=== PATIENT | female | born 1935 | race Caucasian/White ===

== ENCOUNTER 2023-12-14 16:28 | Inpatient (IN) | payer MEDICARE, BC ==
--- NOTE | 2023-12-14 17:36 | ED ---
General Adult HPI - General Chief complaint: Shortness of Breath Stated complaint: New on-set AFIB Time Seen by Provider: 12/14/23 16:47 Source: patient, EMS Mode of arrival: EMS - History of Present Illness Initial comments: Dictation was produced using [employer] dictation software. please excuse any grammatical, word or spelling errors. Chief Complaint: 88-year-old female presents emergency department for A-fib History of Present Illness: Patient is 88-year-old female according to triage she was [facility] the [facility] for new onset A- fib. Patient has a history of A-fib she is on A-fib medications including anticoagulation medications and rate controlling medications. She was just discharged in the hospital sent to the [facility] due to debility. She was having physical therapy today when all of a sudden she was noticed to be in A-f ib. Patient states she is feeling weak today. Denies any other acute complaints. Patient is being currently worked up for subacute abdominal pain. Patient is DNR The ROS documented in this emergency department record has been reviewed and confirmed by me. Those systems with pertinent positive or negative responses have been documented in the HPI. All other systems are other negative and/or noncontributory. - Related Data Home Medications Medication Instructions Recorded Confirmed Acetaminophen Tab [Tylenol] 1,000 mg PO BID 12/01/23 12/01/23 Atorvastatin [Lipitor] 20 mg PO HS 12/01/23 12/01/23 Bumetanide [BUMEX] 2 mg PO DAILY 12/01/23 12/01/23 Citalopram Hydrobromide [CeleXA] 10 mg PO DAILY 12/01/23 12/01/23 Clobetasol Propionate [Temovate 1 applic TOPICAL DIRECTED 12/01/23 12/01/23 0.05% Oint] Clotrimazole/Betameth Cream 1 applic TOPICAL BID PRN 12/01/23 12/01/23 [Lotrisone] Cranberry Fruit Extract [Cranberry] 500 mg PO DAILY 12/01/23 12/01/23 Melatonin 1 mg PO HS 12/01/23 12/01/23 Metoprolol Tartrate [Lopressor] 100 mg PO BID 12/01/23 12/01/23 Potassium Chloride ER [K-Dur 10] 10 meq PO DAILY 12/01/23 12/01/23 Rivaroxaban [Xarelto] 15 mg PO DAILY@1700 12/01/23 12/01/23 dilTIAZem HCL 60 mg PO TID 12/01/23 12/01/23 estradioL 10 mcg VAGINAL DIRECTED 12/01/23 12/01/23 Previous Rx's Medication Instructions Recorded ALPRAZolam [Xanax] 0.5 mg PO DAILY #3 tab 12/08/23 Estradiol Cream [Estrace Cream 1 gm VAGINAL HS #0 12/08/23 0.01%] Allergies Allergy/AdvReac Type Severity Reaction Status Date / Time No Known Allergies Allergy Verified 12/14/23 16:41 Review of Systems ROS Statement: Those systems with pertinent positive or pertinent negative responses have been documented in the HPI. ROS Other: All systems not noted in ROS Statement are negative. Past Medical History Past Medical History: Heart Failure, Hypertension, Respiratory Disorder, Thyroid Disorder Additional Past Medical History / Comment(s): CHF, brain tumor, parathyroid History of Any Multi-Drug Resistant Organisms: None Reported Additional Past Surgical History / Comment(s): Parathiroid removed, brain tumor removed, Past Psychological History: No Psychological Hx Reported Smoking Status: Never smoker Past Alcohol Use History: None Reported Past Drug Use History: None Reported General Exam - General Exam Comments Initial Comments: PHYSICAL EXAM: General Impression: Alert and oriented x3, not in acute distress HEENT: Normocephalic atraumatic, extra-ocular movements intact, pupils equal and reactive to light bilaterally, mucous membranes moist. Cardiovascular: Heart regular rate and rhythm Chest: Able to complete full sentences, no retractions, no tachypnea Abdomen: abdomen soft, non-tender, non-distended, no organomegaly Musculoskeletal: Pulses present and equal in all extremities, no peripheral edema Motor: no focal deficits noted Neurological: CN II-XII grossly intact, no focal motor or sensory deficits noted Skin: Intact with no visualized rashes Psych: Normal affect and mood Course Vital Signs 12/14/23 16:36 Temperature 98.6 F Pulse Rate 86 Blood Pressure 132/77 O2 Sat by Pulse 94 L Oximetry EKG Findings - EKG Comments: EKG Findings:: My EKG interpretation: Ventricular rate 96, A-fib, QRS 110, QTc 418. No LA prolongation, no QTC prolongation, no ST or T-wave changes noted. EKG compared to December 01, 2023 showing no changes. Overall, this EKG is unremarkable Medical Decision Making - Medical Decision Making Was pt. sent in by a medical professional or institution (, PA, LEGAL PROJECT MANAGER, urgent care, hospital, or [facility]...) When possible be specific @ -senior living Did you speak to anyone other than the patient for history (EMS, parent, family, police, friend...)? What history was obtained from this source @ -Daughters at the bedside Did you review nursing and triage notes (agree or disagree)? Why? @ -I reviewed and agree with nursing and triage notes Were old charts reviewed (outside hosp., previous admission, EMS record, old EKG, old radiological studies, urgent care reports/EKG's, [facility] records)? Report findings @ -Previous discharge summaries reviewed stating that patient was recently admitted for congestive heart failure Differential Diagnosis (chest pain, altered mental status, abdominal pain women, abdominal pain men, vaginal bleeding, musculoskeletal, weakness, fever, dyspnea, syncope, headache, dizziness, GI bleed, back pain, seizure, CVA, palpatations, mental health)? @ -Differential Weakness: Hypoglycemia, shock, sepsis, hyponatremia, anemia, infection, DC, ETOH, adverse medicine reaction, overdose, stroke, this is not meant to be an all-inclusive list. EKG interpreted by me (3pts min.). @ -See above X-rays interpreted by me (1pt min.). @ -Chest x-ray shows CHF CT interpreted by me (1pt min.). @ -None done U/S interpreted by me (1pt. min.). @ -None done What testing was considered but not performed or refused? (CT, X-rays, U/S, labs)? Why? @ -None What meds were considered but not given or refused? Why? @ -None Did you discuss the management of the patient with other professionals (professionals i.e. , [employer], LEGAL PROJECT MANAGER, lab, RT, psych nurse, social psychologist, project safety manager, teacher, boating safety officer, caseworker protective services)? Give summary @ -Case discussed with hospitalist for admission Was smoking cessation discussed for >3mins.? @ -No Was critical care preformed (if so, how long)? @ -No Were there social determinants of health that impacted care today? How? (Homelessness, low income, unemployed, alcoholism, drug addiction, transportation, low edu. Level, literacy, decrease access to med. care, custodial, rehab)? @ -No Was there de-escalation of care discussed even if they declined (Discuss DNR or withdrawal of care, Hospice)? DNR status @ -No What co-morbidities impacted this encounter? (DM, HTN, Smoking, COPD, CAD, Ca ncer, CVA, ARF, Chemo, Hep., AIDS, mental health diagnosis, sleep apnea, morbid obesity)? @ -None Was patient admitted / discharged? Hospital course, mention meds given and route, prescriptions, significant lab abnormalities, going to OR and other pertinent info. @ -88-year-old female presents emergency department for weakness palpitations hypoxia. Brought in from [facility] by EMS. Vital signs upon arrival shows 94% on 3 L nasal cannula. Rest of vital signs within acceptable limits. Pat marcel has history of A-fib on all the appropriate medications. Laboratory evaluation obtained. CBC metabolic panel is unremarkable. Patient significantly weak acutely. Disposition options were discussed with patient. Patient does not feel fit enough to go back to the [facility]. She will be a dmitted to observation Undiagnosed new problem with uncertain prognosis? @ -No Drug Therapy requiring intensive monitoring for toxicity (Heparin, Nitro, Insulin, Cardizem)? @ -No Were any procedures done? @ -No Diagnosis/symptom? Acute, or Chronic, or Acute on Chronic? Uncomplicated (without systemic symptoms) or Complicated (systemic symptoms)? @ -Generalized weakness Side effects of treatment? @ -No Exacerbation, Progression, or Severe Exacerbation? @ -No Poses a threat to life or bodily function? How? (Chest pain, USA, DC, pneumonia, PE, COPD, DKA, ARF, appy, cholecystitis, CVA, Diverticulitis, Homicidal, Suicidal, threat to staff... and all critical care pts) @ -No - Lab Data Result diagrams: 12/14/23 18:32 12/14/23 18:32 Lab Results 12/14/23 12/14/23 Range/Units 18:32 18:32 WBC 8.7 (3.8-10.6) k/uL RBC 3.71 L (3.80-5.40) m/uL Hgb 11.8 (11.4-16.0) gm/dL Hct 37.3 (34.0-46.0) % MCV 100.4 H (80.0-100.0) fL MCH 31.9 (25.0-35.0) pg MCHC 31.7 (31.0-37.0) g/dL RDW 15.3 (11.5-15.5) % Plt Count 213 (150-450) k/uL MPV 8.4 Neutrophils % 81 % Lymphocytes % 8 % Monocytes % 7 % Eosinophils % 1 % Basophils % 1 % Neutrophils # 7.0 (1.3-7.7) k/uL Lymphocytes # 0.7 L (1.0-4.8) k/uL Monocytes # 0.6 (0-1.0) k/uL Eosinophils # 0.1 (0-0.7) k/uL Basophils # 0.1 (0-0.2) k/uL Hypochromasia Slight Macrocytosis Slight Sodium 141 (137-145) mmol/L Potassium 4.5 (3.5-5.1) mmol/L Chloride 108 H (98-107) mmol/L Carbon Dioxide 24 (22-30) mmol/L Anion Gap 9 mmol/L BUN 38 H (7-17) mg/dL Creatinine 1.18 H (0.52-1.04) mg/dL Est GFR (CKD-EPI)AfAm 48 (>60 ml/min/1.73 sqM) Est GFR (CKD-EPI)NonAf 42 (>60 ml/min/1.73 sqM) Glucose 103 H (74-99) mg/dL Calcium 8.5 (8.4-10.2) mg/dL Magnesium 2.4 H (1.6-2.3) mg/dL Total Bilirubin 0.6 (0.2-1.3) mg/dL AST 27 (14-36) U/L ALT 22 (4-34) U/L Alkaline Phosphatase 119 (38-126) U/L Total Protein 6.2 L (6.3-8.2) g/dL Albumin 3.6 (3.5-5.0) g/dL Disposition Clinical Impression: Weakness Disposition: ADMITTED IP TO THIS [facility] Condition: Fair Referrals: Jamil Juárez DO [Primary Care Provider] - 1-2 days Decision Time: 20:01
[2023-12-14 18:41] LABS: Basophils # (A) 0.1 k/uL (0-0.2); Basophils % (A) 1 %; Eosinophils # (A) 0.1 k/uL (0-0.7); Eosinophils % (A) 1 %; HCT 37.3 % (34.0-46.0); HGB 11.8 gm/dL (11.4-16.0); Hypochromasia Slight; Lymphocytes # (A) 0.7 k/uL (1.0-4.8); Lymphocytes % (A) 8 %; MCH 31.9 pg (25.0-35.0); MCHC 31.7 g/dL (31.0-37.0); MCV 100.4 fL (80.0-100.0); Macrocytosis Slight; Mean Platelet Volume 8.4; Monocytes # (A) 0.6 k/uL (0-1.0); Monocytes % (A) 7 %; Neutrophils % (A) 81 %; Platelet Count 213 k/uL (150-450); RBC 3.71 m/uL (3.80-5.40); RDW 15.3 % (11.5-15.5); WBC 8.7 k/uL (3.8-10.6)
[2023-12-14 19:06] LABS: ALT 22 U/L (4-34); AST 27 U/L (14-36); African American GFR (CKD) 48 (>60 ml/min/1.73 sqM); Albumin 3.6 g/dL (3.5-5.0); Alkaline Phosphatase 119 U/L (38-126); Anion Gap 9 mmol/L; Blood Urea Nitrogen 38 mg/dL (7-17); Calcium 8.5 mg/dL (8.4-10.2); Carbon Dioxide 24 mmol/L (22-30); Chloride 108 mmol/L (98-107); Glucose 103 mg/dL (74-99); Magnesium 2.4 mg/dL (1.6-2.3); Non-African American GFR(CKD) 42 (>60 ml/min/1.73 sqM); Potassium 4.5 mmol/L (3.5-5.1); Sodium 141 mmol/L (137-145); Total Bilirubin 0.6 mg/dL (0.2-1.3); Total Protein 6.2 g/dL (6.3-8.2)
--- NOTE | 2023-12-14 19:21 | XR ---
EXAMINATION TYPE: XR chest 1V portable DATE OF EXAM: 12/14/2023 6:43 PM CLINICAL INDICATION:Female, 88 years old with history of palpitations; [facility] COMPARISON: Chest radiographs from 12/01/2023 TECHNIQUE: XR chest 1V portable Frontal view of the chest. FINDINGS: Lungs/Pleura: There is no evidence of pleural effusion, focal consolidation, or pneumothorax. Pulmonary vascularity: Pulmonary vascular congestion. Heart/mediastinum: Cardiomediastinal silhouette is enlarged and stable. Musculoskeletal: No acute osseous pathology. IMPRESSION: Cardiomegaly and mild pulmonary vascular congestion. Correlate with BNP for congestive heart failure.
[2023-12-14] MEDS ORDERED: LACTULOSE 20 GM/30 ML CUP PO PRN (21:31)
[2023-12-14] MEDS ORDERED: ONDANSETRON 4 MG/2 ML VIAL IVP PRN (21:31)
[2023-12-14] MEDS ORDERED: CALCIUM CARBONATE 500 MG CHEWABLE PO PRN (21:31)
[2023-12-14] MEDS ORDERED: NALOXONE 0.4 MG/ML 1 ML VIAL IV PRN (21:31)
[2023-12-14] MEDS: FUROSEMIDE 40 MG TAB PO SCH (22:03)
[2023-12-14] MEDS: FUROSEMIDE 10 MG/ML 4 ML VIAL IV STA (22:23)
[2023-12-14] MEDS: ACETAMINOPHEN TAB 500 MG TAB PO SCH (22:25)
[2023-12-14] MEDS: RIVAROXABAN 15 MG TAB PO SCH (22:28)
[2023-12-14] MEDS: METOPROLOL TARTRATE 50 MG TAB PO SCH (22:28)
[2023-12-14] MEDS: ATORVASTATIN 20 MG TAB PO SCH (22:28)
[2023-12-14] MEDS: MELATONIN 1 MG TAB PO SCH (22:29)
[2023-12-14] MEDS: AMMONIUM LACTATE 12% LOTION 225 GM BTL TOPICAL SCH (23:39)
[2023-12-15] MEDS: DILTIAZEM ORAL 60 MG TAB PO SCH (00:23)
[2023-12-15] MEDS: BUMETANIDE 0.25 MG/ML 10 ML VIAL IV SCH ×2 (01:18→20:10)
[2023-12-15 01:55] LABS: Amorphous Sediment,Urine Rare /hpf; Appearance,Urine Clear (Clear); Bacteria,Urine Many /hpf; Bilirubin,Urine Negative (Negative); Blood,Urine Negative (Negative); Color,Urine Colorless; Glucose,Urine (UA) Negative (Negative); Ketones,Urine Negative (Negative); Leukocyte Esterase,Urine Trace (Negative); Mucus,Urine Rare /hpf; Nitrite,Urine Positive (Negative); Protein,Urine Negative (Negative); RBC,Urine 2 /hpf (0-5); Specific Gravity,Urine 1.011 (1.001-1.035); Squamous Epithelial Cell,Urine 4 /hpf (0-4); Urobilinogen,Urine <2.0 mg/dL (<2.0); WBC,Urine 15 /hpf (0-5)
[2023-12-15] MEDS: ALPRAZolam 0.25 MG TAB PO PRN (06:47)
[2023-12-15] MEDS: ALPRAZolam 0.5 MG TAB PO SCH (08:08)
[2023-12-15] MEDS ORDERED: ACETAMINOPHEN TAB 500 MG TAB PO SCH (09:00)
[2023-12-15] MEDS: POTASSIUM CHLORIDE ER 10 MEQ TAB.ER.PRT PO SCH (09:18)
[2023-12-15] MEDS: CITALOPRAM HYDROBROMIDE 10 MG TAB PO SCH (09:19)
--- NOTE | 2023-12-15 10:37 | P.HPIM ---
History of Present Illness H&P Date: 12/14/23 Chief Complaint: A-fib uncontrolled This is a 88-year-old patient, follows with Dr. Sera Johnson. 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 Was treated for CHF exacerbation EF 50 to 55%, bout of epistaxis, has atrial fibrillation, secondary pulm hypertension. She was discharged to [facility] on [facility] for rehab Patient was on the bicycle today with physical therapist. Heart started racing. Patient became short of breath. Very slight chest pressure. No fever no chills. No cough. Feeling rather tired. Patient daughter at the bedside. Review of systems: GEN.: Tired EYES: None HEENT: None NECK: None RESPIRATORY: As above CARDIOVASCULAR: As above GASTROINTESTINAL: None GENITOURINARY: None MUSCULOSKELETAL: Joint pains LYMPHATICS: None HEMATOLOGICAL: None PSYCHIATRY: None NEUROLOGICAL: Near blind left eye Social history: Lives alone-currently at [facility] the [facility]. Home oxygen 2 L. Does not smoke. No alcohol. Physical examination: VITAL SIGNS: Rectal temperature 101.7, 105, 20, 134 x 98, 97% on 4 L GENERAL: BMI 30.7, laying in bed short of breath. EYES: Pupils equal. Conjunctiva teja l. HEENT: External appearance of nose and ears normal, oral cavity grossly normal. NECK: JVD unable to assess; masses not palpable. HEART: First and second heart sounds are normal; edema present. LUNGS: Respiratory rate increased; some basal crackles n. ABDOMEN: Soft, nontender, liver spleen not palpable, no masses palpable. PSYCH: Alert and oriented x3; mood and affect etja l. MUSCULOSKELETAL:No Clubbing/cyanosis;muscles-grossly intact NEUROLOGICAL: Cranial nerves grossly intact; no facial asymmetry, power and sensation grossly intact. Blind in the left eye LYMPHATICS: No lymph nodes palpable in the axilla and neck INVESTIGATIONS, reviewed in the clinical context: EKG tracing personally reviewed by me-atrial fibrillation rate around 100 Chest x-ray film personally reviewed by me-cardiomegaly. Venous prominence. Possible infiltrate right base 2D echocardiogram: EF 50-55%. Severe pulmonary hypertension. Assessment and plan: -Acute on chronic congestive heart failure exacerbation, from diastolic EF 50 to 55% IV Bumex 0.25 twice daily. Strict I's and O's. -Right lower lobe pneumonia suspect gram-negative organism causing sepsis IV ceftriaxone -Sepsis secondary pneumonia Hold IV fluids because of CHF exacerbation. 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 Lopressor 100 mg twice daily. Xarelto -Chronic urinary bladder outflow obstruction Failed trial of DC Maldonado. Maldonado reinserted last week. Follow-up outpatient with urology. -Hyperlipidemia Lipitor -Chronic kidney disease stage III likely nephrosclerosis -Essential hypertension Lopressor. Cardizem. -Chronic hypoxic respiratory failure from CHF 2 L of oxygen at home -DNR Care was discussed with patient daughter at the bedside. Consult cardiology Past Medical History Past Medical History: Heart Failure, Hypertension, Respiratory Disorder, Thyroid Disorder Additional Past Medical History / Comment(s): CHF, brain tumor, parathyroid History of Any Multi-Drug Resistant Organisms: None Reported Additional Past Surgical History / Comment(s): Parathiroid removed, brain tumor removed, Past Psychological History: No Psychological Hx Reported Smoking Status: Never smoker Past Alcohol Use History: None Reported Past Drug Use History: None Reported Medications and Allergies Home Medications Medication Instructions Recorded Confirmed Type Acetaminophen Tab [Tylenol] 1,000 mg PO BID 12/01/23 12/14/23 History Atorvastatin [Lipitor] 20 mg PO HS 12/01/23 12/14/23 History Bumetanide [BUMEX] 2 mg PO DAILY 12/01/23 12/14/23 History Citalopram Hydrobromide [CeleXA] 10 mg PO DAILY 12/01/23 12/14/23 History Melatonin 1 mg PO HS 12/01/23 12/14/23 History Metoprolol Tartrate [Lopressor] 100 mg PO BID 12/01/23 12/14/23 History Potassium Chloride ER [K-Dur 10] 10 meq PO DAILY 12/01/23 12/14/23 History Rivaroxaban [Xarelto] 15 mg PO HS 12/01/23 12/14/23 History dilTIAZem HCL 60 mg PO Q8H 12/01/23 12/14/23 History estradioL 10 mcg VAGINAL SUTH 12/01/23 12/14/23 History ALPRAZolam [Xanax] 0.5 mg PO DAILY #3 tab 12/08/23 12/14/23 Rx Ammonium Lactate Lotion 1 applic TOPICAL HS 12/14/23 12/14/23 History [Lac-Hydrin 12% Lotion] Cranberry 450mg 450 mg PO HS 12/14/23 12/14/23 History Estradiol Cream [Estrace Cream 1 gm VAGINAL SUTH@2100 12/14/23 12/14/23 History 0.01%] Allergies Allergy/AdvReac Type Severity Reaction Status Date / Time No Known Allergies Allergy Verified 12/14/23 20:56 Physical Exam Vitals: Vital Signs Temp Pulse BP Pulse Ox 12/14/23 16:36 98.6 F 86 132/77 94 L Intake and Output 12/14/23 12/14/23 12/14/23 06:59 14:59 22:59 Other: Weight 82.554 kg Results CBC & Chem 7: 12/14/23 18:32 12/14/23 18:32 Labs: Abnormal Lab Results - Last 24 Hours (Table) 12/14/23 12/14/23 Range/Units 18:32 18:32 RBC 3.71 L (3.80-5.40) m/uL MCV 100.4 H (80.0-100.0) fL Lymphocytes # 0.7 L (1.0-4.8) k/uL Chloride 108 H (98-107) mmol/L BUN 38 H (7-17) mg/dL Creatinine 1.18 H (0.52-1.04) mg/dL Glucose 103 H (74-99) mg/dL Magnesium 2.4 H (1.6-2.3) mg/dL Total Protein 6.2 L (6.3-8.2) g/dL
--- NOTE | 2023-12-15 13:40 | P.CRDCN ---
History of Present Illness History of present illness: HISTORY OF PRESENT ILLNESS: This is a 88-year-old male with a past medical history significant for hypertension, hypothyroidism, congestive heart failure, atrial fibrillation, and pulmonary hypertension. Patient follows in the office with []. We have been asked to see the patient in consultation for congestive heart failure. Patient examined at the bedside. Patients caregiver is at the bedside and states that she was brought to the hospital secondary to atrial fibrillation. It is unknown if the patient had RVR or not. At the time of examination remains in atrial fibrillation with controlled ventricular rate. She does report increasing shortness of breath and difficulty laying flat in bed. Patient was started on IV Bumex. DIAGNOSTICS: - EKG reveals atrial fibrillation with controlled ventricular rate. - Chest xray cardiomegaly and mild pulmonary vascular congestion. - Laboratory data: WBC 8.7. Hemoglobin 11.8. Platelet count 213. Sodium 141. Potassium 4.1. BUN 38. Creatinine 1.18. Magnesium 2.4. - Current home cardiac medications include Bumex 2 mg daily, Cardizem 60 mg 3 times a day, Lipitor 20 mg at night, metoprolol tartrate 100 mg twice a day, and Xarelto 15 mg at night. - Most recent echocardiogram obtained on 12/01/2023 revealed ejection fraction 50 to 55%, biatrial enlargement, mild AR, pulmonary regurgitation, mild to moderate TR REVIEW OF SYSTEMS: At the time of my exam: CONSTITUTIONAL: Denies fever or chills. HEENT: Denies blurred vision, vision changes, or eye pain. Denies hemoptysis CARDIOVASCULAR: Denies chest pain. Denies orthopnea. Denies PND. Denies palpitations RESPIRATORY: Reports shortness of breath. GASTROINTESTINAL: Denies abdominal pain. Denies nausea or vomiting. HEMATOLOGIC: Denies bleeding disorders. GENITOURINARY: Denies any blood in urine. SKIN: Denies pruitis. Denies rash. PHYSICAL EXAM: VITAL SIGNS: Reviewed. GENERAL: Well-developed in no acute distress. HEENT: Head is normocephalic. Pupils are equal, round. Sclerae anicteric. Mucous membranes of the mouth are moist. Neck supple. No JVD or thyromegaly LUNGS: Respirations even and unlabored. Lungs diminished to auscultation bilaterally. HEART: Irregular rate and rhythm. S1 and S2 heard. ABDOMEN: Soft. Nondistended. Nontender. EXTREMITIES: Normal range of motion. No clubbing or cyanosis. Peripheral pulses intact. 1+ lower extremity edema NEUROLOGIC: Awake and alert. Oriented x 3. 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 Signing provider agrees with the documented findings, assessment, and plan of care documented by DIRECTOR PRESALES as a scribe. Past Medical History Past Medical History: Heart Failure, Hypertension, Respiratory Disorder, Thyroid Disorder Additional Past Medical History / Comment(s): CHF, brain tumor, parathyroid History of Any Multi-Drug Resistant Organisms: None Reported Additional Past Surgical History / Comment(s): Parathiroid removed, brain tumor removed, Past Psychological History: No Psychological Hx Reported Smoking Status: Never smoker Past Alcohol Use History: None Reported Past Drug Use History: None Reported Medications and Allergies Home Medications Medication Instructions Recorded Confirmed Type Acetaminophen Tab [Tylenol] 1,000 mg PO BID 12/01/23 12/14/23 History Atorvastatin [Lipitor] 20 mg PO HS 12/01/23 12/14/23 History Bumetanide [BUMEX] 2 mg PO DAILY 12/01/23 12/14/23 History Citalopram Hydrobromide [CeleXA] 10 mg PO DAILY 12/01/23 12/14/23 History Melatonin 1 mg PO HS 12/01/23 12/14/23 History Metoprolol Tartrate [Lopressor] 100 mg PO BID 12/01/23 12/14/23 History Potassium Chloride ER [K-Dur 10] 10 meq PO DAILY 12/01/23 12/14/23 History Rivaroxaban [Xarelto] 15 mg PO HS 12/01/23 12/14/23 History dilTIAZem HCL 60 mg PO Q8H 12/01/23 12/14/23 History estradioL 10 mcg VAGINAL SUTH 12/01/23 12/14/23 History ALPRAZolam [Xanax] 0.5 mg PO DAILY #3 tab 12/08/23 12/14/23 Rx Ammonium Lactate Lotion 1 applic TOPICAL HS 12/14/23 12/14/23 History [Lac-Hydrin 12% Lotion] Cranberry 450mg 450 mg PO HS 12/14/23 12/14/23 History Estradiol Cream [Estrace Cream 1 gm VAGINAL SUTH@2100 12/14/23 12/14/23 History 0.01%] Allergies Allergy/AdvReac Type Severity Reaction Status Date / Time No Known Allergies Allergy Verified 12/14/23 20:56 Physical Exam Vitals: Vital Signs Temp Pulse Resp BP Pulse Ox 12/15/23 10:31 99.8 F H 12/15/23 09:09 100.0 F H 80 24 120/64 96 12/15/23 06:28 99.0 F 82 18 139/88 98 12/15/23 03:03 98.0 F 12/15/23 02:39 87 17 118/97 97 12/15/23 00:36 89 24 106/89 97 12/14/23 22:09 101.7 F H 105 H 20 124/98 97 12/14/23 21:36 99.3 F 105 H 18 114/89 96 12/14/23 21:21 114/89 12/14/23 21:06 101.4 F H 101 H 18 132/104 94 L 12/14/23 16:36 98.6 F 86 132/77 94 L Intake and Output 12/14/23 12/15/23 12/15/23 22:59 06:59 14:59 Output Total 300 Balance -300 Output: Urine 300 Female - External 300 Other: Weight 82.554 kg Results 12/14/23 18:32 12/14/23 18:32 Cardiac Enzymes 12/14/23 Range/Units 18:32 AST 27 (14-36) U/L CBC 12/14/23 Range/Units 18:32 WBC 8.7 (3.8-10.6) k/uL RBC 3.71 L (3.80-5.40) m/uL Hgb 11.8 (11.4-16.0) gm/dL Hct 37.3 (34.0-46.0) % Plt Count 213 (150-450) k/uL Comprehensive Metabolic Panel 12/14/23 Range/Units 18:32 Sodium 141 (137-145) mmol/L Potassium 4.5 (3.5-5.1) mmol/L Chloride 108 H (98-107) mmol/L Carbon Dioxide 24 (22-30) mmol/L BUN 38 H (7-17) mg/dL Creatinine 1.18 H (0.52-1.04) mg/dL Glucose 103 H (74-99) mg/dL Calcium 8.5 (8.4-10.2) mg/dL AST 27 (14-36) U/L ALT 22 (4-34) U/L Alkaline Phosphatase 119 (38-126) U/L Total Protein 6.2 L (6.3-8.2) g/dL Albumin 3.6 (3.5-5.0) g/dL Current Medications Generic Name Dose Route Start Last Admin Trade Name Freq PRN Reason Stop Dose Admin Acetaminophen 1,000 mg 12/14/23 22:00 12/15/23 09:16 Acetaminophen Tab 500 Mg Tab PO 1,000 mg BID SHY Administration Alprazolam 0.5 mg 12/15/23 09:00 12/15/23 08:08 Alprazolam 0.5 Mg Tab PO Not Given DAILY SHY Alprazolam 0.25 mg 12/14/23 21:31 12/15/23 06:47 Alprazolam 0.25 Mg Tab PO 0.25 mg Q6HR PRN Administration Anxiety Atorvastatin Calcium 20 mg 12/14/23 22:00 12/14/23 22:28 Atorvastatin 20 Mg Tab PO 20 mg HS SHY Administration Bumetanide 0.25 mg 12/14/23 22:00 12/15/23 09:21 Bumetanide 0.25 Mg/Ml 10 Ml Vial IV 0.25 mg Q12HR SHY Administration Calcium Carbonate/Glycine 1,000 mg 12/14/23 21:31 Calcium Carbonate 500 Mg Chewable PO Q4HR PRN Dyspepsia Citalopram Hydrobromide 10 mg 12/15/23 09:00 12/15/23 09:19 Citalopram Hydrobromide 10 Mg Tab PO 10 mg DAILY SHY Administration Diltiazem HCl 60 mg 12/14/23 22:00 12/15/23 06:33 Diltiazem Oral 60 Mg Tab PO 60 mg Q8H SHY Administration Ceftriaxone Sodium 1 gm/ 50 mls @ 100 mls/hr 12/15/23 22:00 Sodium Chloride IVPB Q24H [facility] Protocol Lactic Acid 1 applic 12/14/23 22:00 12/14/23 23:39 Ammonium Lactate 12% Lotion 225 Gm Btl TOPICAL Not Given HS [facility] Protocol Lactulose 20 gm 12/14/23 21:31 Lactulose 20 Gm/30 Ml Cup PO DAILY PRN Constipation Melatonin 1 mg 12/14/23 22:00 12/14/23 22:29 Melatonin 1 Mg Tab PO 1 mg HS [facility] Administration Metoprolol Tartrate 100 mg 12/14/23 22:00 12/15/23 09:14 Metoprolol Tartrate 50 Mg Tab PO 100 mg BID SHY Administration Naloxone HCl 0.2 mg 12/14/23 21:31 Naloxone 0.4 Mg/Ml 1 Ml Vial IV Q2M PRN Opioid Reversal Ondansetron HCl 4 mg 12/14/23 21:31 Ondansetron 4 Mg/2 Ml Vial IVP Q8HR PRN Nausea And Vomiting Potassium Chloride 10 meq 12/15/23 09:00 12/15/23 09:18 Potassium Chloride Er 10 Meq Tab.Er.Prt PO 10 meq DAILY SHY Administration Rivaroxaban 15 mg 12/14/23 22:00 12/14/23 22:28 Rivaroxaban 15 Mg Tab PO 15 mg HS SHY Administration Protocol Intake and Output 12/14/23 12/15/23 12/15/23 22:59 06:59 14:59 Output Total 300 Balance -300 Output: Urine 300 Female - External 300 Other: Weight 82.554 kg 12/14/23 18:32 12/14/23 18:32
--- NOTE | 2023-12-15 19:13 | P.PN ---
Progress Note - Text Progress Note Date: 12/15/23 Chief Complaint: A-fib uncontrolled This is a 88-year-old patient, follows with Dr. Sera Johnson. 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 Was treated for CHF exacerbation EF 50 to 55%, bout of epistaxis, has atrial fibrillation, secondary pulm hypertension. She was discharged to [facility] on the [place] for rehab Patient was on the bicycle today with physical therapist. Heart started racing. Patient became short of breath. Very slight chest pressure. No fever no chills. No cough. Feeling rather tired. Patient daughter at the bedside. December 14: Patient started on IV ceftriaxone last night. [place] to be combination of pneumonia and UTI. Bumex was increased to 1 mg every 12 by cardiology. Breathing better. Spoke to the patient daughter at the bedside. Active Medications Acetaminophen (Acetaminophen Tab 500 Mg Tab) 1,000 mg PO BID [facility] Last Admin: 12/15/23 09:16 Dose: 1,000 mg Alprazolam (Alprazolam 0.5 Mg Tab) 0.5 mg PO DAILY [facility] Last Admin: 12/15/23 08:08 Dose: Not Given Alprazolam (Alprazolam 0.25 Mg Tab) 0.25 mg PO Q6HR PRN PRN Reason: Anxiety Last Admin: 12/15/23 06:47 Dose: 0.25 mg Atorvastatin Calcium (Atorvastatin 20 Mg Tab) 20 mg PO HS [facility] Last Admin: 12/14/23 22:28 Dose: 20 mg Bumetanide (Bumetanide 0.25 Mg/Ml 10 Ml Vial) 1 mg IV Q12HR [facility] Calcium Carbonate/Glycine (Calcium Carbonate 500 Mg Chewable) 1,000 mg PO Q4HR PRN PRN Reason: Dyspepsia Citalopram Hydrobromide (Citalopram Hydrobromide 10 Mg Tab) 10 mg PO DAILY [facility] Last Admin: 12/15/23 09:19 Dose: 10 mg Diltiazem HCl (Diltiazem Oral 60 Mg Tab) 60 mg PO Q8H [facility] Last Admin: 12/15/23 13:47 Dose: 60 mg Ceftriaxone Sodium 1 gm/ (Sodium Chloride) 50 mls @ 100 mls/hr IVPB Q24H [facility]; Protocol Lactic Acid (Ammonium Lactate 12% Lotion 225 Gm Btl) 1 applic TOPICAL HS [facility]; Protocol Last Admin: 12/14/23 23:39 Dose: Not Given Lactulose (Lactulose 20 Gm/30 Ml Cup) 20 gm PO DAILY PRN PRN Reason: Constipation Melatonin (Melatonin 1 Mg Tab) 1 mg PO [facility] Last Admin: 12/14/23 22:29 Dose: 1 mg Metoprolol Tartrate (Metoprolol Tartrate 50 Mg Tab) 100 mg PO BID [facility] Last Admin: 12/15/23 09:14 Dose: 100 mg Naloxone HCl (Naloxone 0.4 Mg/Ml 1 Ml Vial) 0.2 mg IV Q2M PRN PRN Reason: Opioid Reversal Ondansetron HCl (Ondansetron 4 Mg/2 Ml Vial) 4 mg IVP Q8HR PRN PRN Reason: Nausea And Vomiting Potassium Chloride (Potassium Chloride Er 10 Meq Tab.Er.Prt) 10 meq PO DAILY [facility] Last Admin: 12/15/23 09:18 Dose: 10 meq Rivaroxaban (Rivaroxaban 15 Mg Tab) 15 mg PO [facility]; Protocol Last Admin: 12/14/23 22:28 Dose: 15 mg Social history: Lives alone-currently at [facility] the [facility]. Home oxygen 2 L. Does not smoke. No alcohol. Physical examination: VITAL SIGNS: 100, 80, 24, 120 x 64, 96% on 4 L GENERAL: Sitting up in bed, a bit short of breath EYES: Pupils equal. Conjunctiva teja l. HEENT: External appearance of nose and ears normal, oral cavity grossly normal. NECK: JVD unable to assess; masses not palpable. HEART: First and second heart sounds are normal; edema present. LUNGS: Respiratory rate increased; some basal crackles n. ABDOMEN: Soft, nontender, liver spleen not palpable, no masses palpable. PSYCH: Alert and oriented x3; mood and affect teja l. MUSCULOSKELETAL:No Clubbing/cyanosis;muscles-grossly intact NEUROLOGICAL: Cranial nerves grossly intact; no facial asymmetry, power and sensation grossly intact. Blind in the left eye INVESTIGATIONS, reviewed in the clinical context: UA positive for nitrite. Leukoesterase. Procalcitonin 0.12. proBNP 5190 EKG tracing personally reviewed by me-atrial fibrillation rate around 100 Chest x-ray film personally reviewed by me-cardiomegaly. Venous prominence. Possible infiltrate right base 2D echocardiogram: EF 50-55%. Severe pulmonary hypertension. Assessment and plan: -Acute on chronic congestive heart failure exacerbation, from diastolic EF 50 to 55%: Slow to respond IV Bumex increased to 1 mg every 12. Strict I's and O's. -Right lower lobe pneumonia suspect gram-negative organism causing sepsis IV ceftriaxone -Acute UTI with cystitis secondary to Maldonado catheter IV ceftriaxone -Sepsis secondary pneumonia, and UTI Hold IV fluids because of CHF exacerbation. Antibiotics -Acute hypoxic respiratory failure secondary pneumonia, and CHF 6 L of oxygen on presentation -Severe secondary pulmonary hypertension, secondary to CHF -Chronically blind in the left eye from prior brain tumor being removed -Persistent atrial fibrillation, Cardizem 60 mg 3 times daily. Lopressor 100 mg twice daily. Xarelto -Chronic urinary bladder outflow obstruction Failed trial of DC Maldonado. Maldonado reinserted last week. Follow-up outpatient with urology. -Hyperlipidemia Lipitor -Chronic kidney disease stage III likely nephrosclerosis -Essential hypertension Lopressor. Cardizem. -Chronic hypoxic respiratory failure from CHF 2 L of oxygen at home -DNR Discussed with patient daughter. Bumex dose increased. Continue with IV ceftriaxone.
[2023-12-16 06:44] LABS: Basophils # (A) 0.1 k/uL (0-0.2); Basophils % (A) 1 %; Eosinophils % (A) 0 %; HCT 35.4 % (34.0-46.0); HGB 11.6 gm/dL (11.4-16.0); Hypochromasia Slight; Lymphocytes # (A) 0.5 k/uL (1.0-4.8); Lymphocytes % (A) 7 %; MCHC 32.7 g/dL (31.0-37.0); MCV 100.9 fL (80.0-100.0); Macrocytosis Slight; Mean Platelet Volume 8.5; Monocytes # (A) 0.7 k/uL (0-1.0); Monocytes % (A) 9 %; Neutrophils # (A) 6.2 k/uL (1.3-7.7); Neutrophils % (A) 79 %; Platelet Count 206 k/uL (150-450); RBC 3.51 m/uL (3.80-5.40); RDW 15.1 % (11.5-15.5); WBC 7.8 k/uL (3.8-10.6)
[2023-12-16 06:52] LABS: African American GFR (CKD) 50 (>60 ml/min/1.73 sqM); Anion Gap 9 mmol/L; Blood Urea Nitrogen 29 mg/dL (7-17); Calcium 8.6 mg/dL (8.4-10.2); Carbon Dioxide 25 mmol/L (22-30); Chloride 108 mmol/L (98-107); Glucose 95 mg/dL (74-99); Non-African American GFR(CKD) 43 (>60 ml/min/1.73 sqM); Potassium 4.2 mmol/L (3.5-5.1); Sodium 142 mmol/L (137-145)
--- NOTE | 2023-12-16 09:34 | P.PN ---
Subjective HISTORY OF PRESENT ILLNESS: This is a 88-year-old male with a past medical history significant for hypertension, hypothyroidism, congestive heart failure, atrial fibrillation, and pulmonary hypertension. Patient follows in the office with []. We have been asked to see the patient in consultation for congestive heart failure. Patient examined at the bedside. Patients caregiver is at the bedside and states that she was brought to the hospital secondary to atrial fibrillation. It is unknown if the patient had RVR or not. At the time of examination remains in atrial fibrillation with controlled ventricular rate. She does report increasing shortness of breath and difficulty laying flat in bed. Patient was started on IV Bumex. DIAGNOSTICS: - EKG reveals atrial fibrillation with controlled ventricular rate. - Chest xray cardiomegaly and mild pulmonary vascular congestion. - Laboratory data: WBC 8.7. Hemoglobin 11.8. Platelet count 213. Sodium 141. Potassium 4.1. BUN 38. Creatinine 1.18. Magnesium 2.4. - Current home cardiac medications include Bumex 2 mg daily, Cardizem 60 mg 3 times a day, Lipitor 20 mg at night, metoprolol tartrate 100 mg twice a day, and Xarelto 15 mg at night. - Most recent echocardiogram obtained on 12/01/2023 revealed ejection fraction 50 to 55%, biatrial enlargement, mild AR, pulmonary regurgitation, mild to moderate TR 12/16/2023 Patient examined this morning at the bedside. Patient is laying flat in bed and appears comfortable. She denies any chest pain or pressure. She denies any sh ortness of breath. She remains on IV Bumex. Creatinine today is stable at 1.15. Vital signs are stable. PHYSICAL EXAM: VITAL SIGNS: Reviewed. GENERAL: Well-developed in no acute distress. HEENT: Head is normocephalic. Pupils are equal, round. Sclerae anicteric. Mucous membranes of the mouth are moist. Neck supple. No JVD or thyromegaly LUNGS: Respirations even and unlabored. Lungs diminished to auscultation bilaterally. HEART: Irregular rate and rhythm. S1 and S2 heard. ABDOMEN: Soft. Nondistended. Nontender. EXTREMITIES: Normal range of motion. No clubbing or cyanosis. Peripheral pul ses intact. No lower extremity edema NEUROLOGIC: Awake and alert. Oriented x 3. 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 Please call with questions or concerns. Nurse practitioner note has been reviewed by physician. Signing provider agrees with the documented findings, assessment, and plan of care documented by MATCH MAKER as a scribe. Objective - Vital Signs Vital signs: Vital Signs Temp 97.6 F 12/16/23 07:00 Pulse 90 12/16/23 07:00 Resp 16 12/16/23 08:00 BP 106/68 12/16/23 07:00 Pulse Ox 96 12/16/23 07:00 FiO2 Intake & Output 12/15/23 12/16/23 12/16/23 18:59 06:59 18:59 Intake Total 118 Output Total 300 550 Balance -182 -550 Intake: Oral 118 Output: Urine 300 550 Female - External 300 Other: Voiding Method External Catheter External Catheter External Catheter # Bowel Movements 1 - Labs CBC & Chem 7: 12/16/23 06:07 12/16/23 06:07 Labs: Abnormal Lab Results - Last 24 Hours (Table) 12/15/23 12/16/23 12/16/23 Range/Units 11:22 06:07 06:07 RBC 3.51 L (3.80-5.40) m/uL MCV 100.9 H (80.0-100.0) fL Lymphocytes # 0.5 L (1.0-4.8) k/uL Chloride 108 H (98-107) mmol/L BUN 29 H (7-17) mg/dL Creatinine 1.15 H (0.52-1.04) mg/dL Procalcitonin 0.12 H (0.02-0.09) ng/mL Microbiology - Last 24 Hours (Table) 12/14/23 23:17 Blood Culture - Preliminary Blood 12/14/23 23:02 Blood Culture - Preliminary Blood
[2023-12-16] MEDS: BUMETANIDE 1 MG TAB PO SCH (09:49)
--- NOTE | 2023-12-16 11:09 | P.PN ---
Subjective Progress Note Date: 12/16/23 This is a 88-year-old patient, follows with Dr. Sera Johnson. 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 Was treated for CHF exacerbation EF 50 to 55%, bout of epistaxis, has atrial fibrillation, secondary pulm hypertension. She was discharged to [facility] on the [place] for rehab Patient was on the bicycle today with physical therapist. Heart started racing. Patient became short of breath. Very slight chest pressure. No fever no ch ills. No cough. Feeling rather tired. Patient daughter at the bedside. December 14: Patient started on IV ceftriaxone last night. [place] to be combination of pneumonia and UTI. Bumex was increased to 1 mg every 12 by cardiology. Breathing better. Spoke to the patient daughter at the bedside. 12/15. Patient seen and examined. Patient is lethargic. Has good appetite. Denies any shortness of breath at rest REVIEW OF SYSTEMS: CONSTITUTIONAL: No fever, no malaise,. CARDIOVASCULAR: No chest pain, no palpitations, no syncope. PULMONARY: No shortness of breath, no cough, GASTROINTESTINAL: No diarrhea, no nausea, no vomiting, no abdominal pain. NEUROLOGICAL: No headaches, no weakness, PHYSICAL EXAMINATION: GENERAL: The patient is alert , not in any acute distress. Well developed, well nourished. HEENT: Pupils are round and equally reacting to light. EOMI. No scleral icterus. No conjunctival pallor. Normocephalic, atraumatic. No pharyngeal erythema. No thyromegaly. CARDIOVASCULAR: S1 and S2 present. No murmurs, rubs, or gallops. PULMONARY: Coarse breath sound bilaterally, no wheeze ABDOMEN: Soft, nontender, nondistended, normoactive bowel sounds. No palpable organomegaly. MUSCULOSKELETAL: No joint swelling or deformity. EXTREMITIES: No cyanosis, clubbing, or pedal edema. NEUROLOGICAL: Gross neurological examination did not reveal any focal deficits. SKIN: No rashes. 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 Lopressor 100 mg twice daily. Continue Xarelto Cardiology following Labs and medication were reviewed.. Continue same treatment. Continue with symptomatic treatment. Resume home medication. Monitor labs and vitals. DVT and GI prophylaxis. Further recommendations as per clinical course of the patient Dictation was produced using [employer] dictation software. please excuse any grammatical, word or spelling errors. Objective - Vital Signs Vital signs: Vital Signs Temp 97.6 F 12/16/23 07:00 Pulse 90 12/16/23 07:00 Resp 16 12/16/23 08:00 BP 106/68 12/16/23 07:00 Pulse Ox 96 12/16/23 07:00 FiO2 Intake & Output 12/15/23 12/16/23 12/16/23 18:59 06:59 18:59 Intake Total 118 Output Total 300 550 Balance -182 -550 Intake: Oral 118 Output: Urine 300 550 Female - External 300 Other: Voiding Method External Catheter External Catheter External Catheter # Bowel Movements 1 - Labs CBC & Chem 7: 12/16/23 06:07 12/16/23 06:07 Labs: Abnormal Lab Results - Last 24 Hours (Table) 12/15/23 12/16/23 12/16/23 Range/Units 11:22 06:07 06:07 RBC 3.51 L (3.80-5.40) m/uL MCV 100.9 H (80.0-100.0) fL Lymphocytes # 0.5 L (1.0-4.8) k/uL Chloride 108 H (98-107) mmol/L BUN 29 H (7-17) mg/dL Creatinine 1.15 H (0.52-1.04) mg/dL Procalcitonin 0.12 H (0.02-0.09) ng/mL Microbiology - Last 24 Hours (Table) 12/15/23 00:40 Urine Culture - Preliminary Urine,Voided Gram Neg Bacilli 12/14/23 23:17 Blood Culture - Preliminary Blood 12/14/23 23:02 Blood Culture - Preliminary Blood
[2023-12-16] MEDS: DICLOFENAC SODIUM GEL 100 GM TUBE TOPICAL SCH (13:42)
[2023-12-16 15:17] VITALS: BMI 29.3
[2023-12-17 09:06] LABS: Basophils # (A) 0.03 X 10*3/uL (0.00-0.10); Basophils % (A) 0.5 %; Eosinophils # (A) 0.07 X 10*3/uL (0.04-0.35); Eosinophils % (A) 1.1 %; HCT 35.7 % (37.2-46.3); Lymphocytes # (A) 0.83 X 10*3/uL (0.90-5.00); Lymphocytes % (A) 13.1 %; MCH 30.8 pg (27.0-32.0); MCHC 30.8 g/dL (32.0-37.0); Mean Platelet Volume 10.9 FL (9.5-12.2); Monocytes # (A) 0.68 X 10*3/uL (0.20-1.00); Monocytes % (A) 10.7 %; NRBC Per 100 WBC 0 X 10*3/uL (0.00-0.01); Neutrophils # (A) 4.71 X 10*3/uL (1.80-7.70); Neutrophils % (A) 74.1 %; Platelet Count 206 X 10*3/uL (140-440); RBC 3.57 X 10*6/uL (4.10-5.20); RDW 15.8 % (11.5-14.5); WBC 6.35 X 10*3/uL (4.50-10.00)
[2023-12-17 09:12] LABS: ALT 17 U/L (8-44); AST 29 U/L (13-35); Albumin 3.4 g/dL (3.8-4.9); Albumin/Globulin Ratio 1.48 Ratio (1.60-3.17); Alkaline Phosphatase 78 U/L (41-126); BUN/Creat Ratio 22.46 Ratio (12.00-20.00); Blood Urea Nitrogen 29.2 mg/dL (9.0-27.0); Calcium 8.5 mg/dL (8.7-10.3); Carbon Dioxide 24.6 mmol/L (21.6-31.8); Chloride 107 mmol/L (96-109); Globulin 2.3 g/dL (1.6-3.3); Glucose 95 mg/dL (70-110); Potassium 4.2 mmol/L (3.5-5.5); Sodium 143 mmol/L (135-145); Total Bilirubin 0.3 mg/dL (0.3-1.2); Total Protein 5.7 g/dL (6.2-8.2)
--- NOTE | 2023-12-17 13:38 | P.PN ---
Subjective Progress Note Date: 12/17/23 This is a 88-year-old patient, follows with Dr. Sera Johnson. 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 Was treated for CHF exacerbation EF 50 to 55%, bout of epistaxis, has atrial fibrillation, secondary pulm hypertension. She was discharged to [facility] on the [place] for rehab Patient was on the bicycle today with physical therapist. Heart started racing. Patient became short of breath. Very slight chest pressure. No fever no ch ills. No cough. Feeling rather tired. Patient daughter at the bedside. December 14: Patient started on IV ceftriaxone last night. [place] to be combination of pneumonia and UTI. Bumex was increased to 1 mg every 12 by cardiology. Breathing better. Spoke to the patient daughter at the bedside. 12/15. Patient seen and examined. Patient is lethargic. Has good appetite. Denies any shortness of breath at rest. 12/16. Patient seen and examined. Patient more alert this morning, states she feels better compared to yesterday REVIEW OF SYSTEMS: CONSTITUTIONAL: No fever, no malaise,. CARDIOVASCULAR: No chest pain, no palpitations, no syncope. PULMONARY: No shortness of breath, no cough, GASTROINTESTINAL: No diarrhea, no nausea, no vomiting, no abdominal pain. NEUROLOGICAL: No headaches, no weakness, PHYSICAL EXAMINATION: GENERAL: The patient is alert , not in any acute distress. Well developed, well nourished. HEENT: Pupils are round and equally reacting to light. EOMI. No scleral icterus. No conjunctival pallor. Normocephalic, atraumatic. No pharyngeal erythema. No thyromegaly. CARDIOVASCULAR: S1 and S2 present. No murmurs, rubs, or gallops. PULMONARY: Coarse breath sound bilaterally, no wheeze ABDOMEN: Soft, nontender, nondistended, normoactive bowel sounds. No palpable organomegaly. MUSCULOSKELETAL: No joint swelling or deformity. EXTREMITIES: No cyanosis, clubbing, or pedal edema. NEUROLOGICAL: Gross neurological examination did not reveal any focal deficits. SKIN: No rashes. 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 Lopressor 100 mg twice daily. Continue Xarelto Cardiology following Labs and medication were reviewed.. Continue same treatment. Continue with symptomatic treatment. Resume home medication. Monitor labs and vitals. DVT and GI prophylaxis. Further recommendations as per clinical course of the patient Dictation was produced using [employer] dictation software. please excuse any grammatical, word or spelling errors. Objective - Vital Signs Vital signs: Vital Signs Temp 98.6 F 12/17/23 07:44 Pulse 75 12/17/23 07:44 Resp 16 12/17/23 07:44 BP 93/61 12/17/23 07:44 Pulse Ox 93 L 12/17/23 07:44 FiO2 Intake & Output 12/16/23 12/17/23 12/17/23 18:59 06:59 18:59 Intake Total 118 618 Output Total 400 Balance 118 -400 618 Weight 82.554 kg 84.5 kg Intake: Oral 118 618 Output: Urine 400 Other: Voiding Method External Catheter Diaper External Catheter # Voids 1 3 # Bowel Movements 1 1 - Labs CBC & Chem 7: 12/17/23 05:27 12/17/23 05:27 Labs: Abnormal Lab Results - Last 24 Hours (Table) 12/17/23 12/17/23 Range/Units 05:27 05:27 RBC 3.57 L (4.10-5.20) X 10*6/uL Hgb 11.0 L (12.0-15.0) g/dL Hct 35.7 L (37.2-46.3) % MCV 100.0 H (80.0-97.0) FL MCHC 30.8 L (32.0-37.0) g/dL RDW 15.8 H (11.5-14.5) % Lymphocytes # 0.83 L (0.90-5.00) X 10*3/uL BUN 29.2 H (9.0-27.0) mg/dL Est GFR (CKD-EPI) 40 L (>=60) BUN/Creatinine Ratio 22.46 H (12.00-20.00) Ratio Calcium 8.5 L (8.7-10.3) mg/dL Total Protein 5.7 L (6.2-8.2) g/dL Albumin 3.4 L (3.8-4.9) g/dL Albumin/Globulin Ratio 1.48 L (1.60-3.17) Ratio Microbiology - Last 24 Hours (Table) 12/14/23 23:17 Blood Culture - Preliminary Blood 12/14/23 23:02 Blood Culture - Preliminary Blood 12/15/23 00:40 Urine Culture - Preliminary Urine,Voided Gram Neg Bacilli
[2023-12-17] MEDS ORDERED: ZINC OXIDE PASTE (Z-GUARD) 1 APPLIC TOPICAL PRN (14:10)
--- NOTE | 2023-12-18 13:33 | P.PN ---
Subjective Progress Note Date: 12/18/23 This is a 88-year-old patient, follows with Dr. Sera Johnson. 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 Was treated for CHF exacerbation EF 50 to 55%, bout of epistaxis, has atrial fibrillation, secondary pulm hypertension. She was discharged to [facility] [place] for rehab Patient was on the bicycle today with physical therapist. Heart started racing. Patient became short of breath. Very slight chest pressure. No fever no ch ills. No cough. Feeling rather tired. Patient daughter at the bedside. December 14: Patient started on IV ceftriaxone last night. [place] to be combination of pneumonia and UTI. Bumex was increased to 1 mg every 12 by cardiology. Breathing better. Spoke to the patient daughter at the bedside. 12/15. Patient seen and examined. Patient is lethargic. Has good appetite. Denies any shortness of breath at rest. 12/16. Patient seen and examined. Patient more alert this morning, states she feels better compared to yesterday. 12/17. Patient seen and examined .complaint of generalized weakness. Appetite has improved. Blood cultures were positive for bacillus species in 1 bottle REVIEW OF SYSTEMS: CONSTITUTIONAL: No fever, no malaise,. CARDIOVASCULAR: No chest pain, no palpitations, no syncope. PULMONARY: No shortness of breath, no cough, GASTROINTESTINAL: No diarrhea, no nausea, no vomiting, no abdominal pain. NEUROLOGICAL: No headaches, no weakness, PHYSICAL EXAMINATION: GENERAL: The patient is alert , not in any acute distress. Well developed, well nourished. HEENT: Pupils are round and equally reacting to light. EOMI. No scleral icterus. No conjunctival pallor. Normocephalic, atraumatic. No pharyngeal erythema. No thyromegaly. CARDIOVASCULAR: S1 and S2 present. No murmurs, rubs, or gallops. PULMONARY: Coarse breath sound bilaterally, no wheeze ABDOMEN: Soft, nontender, nondistended, normoactive bowel sounds. No palpable organomegaly. MUSCULOSKELETAL: No joint swelling or deformity. EXTREMITIES: No cyanosis, clubbing, or pedal edema. NEUROLOGICAL: Gross neurological examination did not reveal any focal deficits. SKIN: No rashes. 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 Lopressor 100 mg twice daily. Continue Xarelto Cardiology following ID consulted Labs and medication were reviewed.. Continue same treatment. Continue with symptomatic treatment. Resume home medication. Monitor labs and vitals. DVT and GI prophylaxis. Further recommendations as per clinical course of the patient Dictation was produced using [employer] dictation software. please excuse any grammatical, word or spelling errors. Objective - Vital Signs Vital signs: Vital Signs Temp 98.1 F 12/18/23 07:26 Pulse 77 12/18/23 07:26 Resp 19 12/18/23 07:26 BP 120/66 12/18/23 07:26 Pulse Ox 94 L 12/18/23 07:26 FiO2 Intake & Output 12/17/23 12/18/23 12/18/23 18:59 06:59 18:59 Intake Total 858 Output Total 375 300 Balance 483 -300 Intake: Oral 858 Output: Urine 375 300 Other: Voiding Method Diaper Diaper External Catheter External Catheter # Voids 3 # Bowel Movements 1 - Labs CBC & Chem 7: 12/17/23 05:27 12/17/23 05:27 Labs: Microbiology - Last 24 Hours (Table) 12/14/23 23:17 Blood Culture - Preliminary Blood 12/14/23 23:02 Blood Culture Gram Stain - Final Blood Blood Culture - Final Bacillus species Not Anthracis 12/15/23 00:40 Urine Culture - Final Urine,Voided Escherichia coli
--- NOTE | 2023-12-18 20:54 | P.CONS ---
History of Present Illness - Reason for Consult Consult date: 12/18/23 Positive culture Requesting physician: Lester Crain - Chief Complaint Weakness x few days - History of Present Illness Patient is a 88-year-old female with a past medical history significant for hypertension congestive heart failure history of brain tumor hypothyroidism presenting to the hospital 4 days ago for evaluation of new onset A-fib from the local detention patient was complaining of feeling weak patient on presentation to the hospital did have a fever of 101.4 F patient was nontachycardic or hypotensive patient was hypoxic requiring supplemental oxygen did have a normal white count BUN/creatinine mildly elevated urine was mildly positive urine culture with E. coli blood cultures gram-positive bacillus species prompting this infectious disease consultation, patient did have a evaluation denies having any fever or any chills patient is breathing comfortably on 3 L nasal cannula oxygen patient denies having any chest pain did have some shortness of breath on exertion occasional cough patient denies any nausea vomiting no abdominal pain no diarrhea, patient currently does not have any open wound denies any swelling or redness to the lower extremity and no joint swelling and no pressure ulcer reported by the nurse aide Review of Systems Positive point and negatives has been mentioned in the HPI, complete review of systems was performed and all other systems are negative Past Medical History Past Medical History: Heart Failure, Hypertension, Respiratory Disorder, Thyroid Disorder Additional Past Medical History / Comment(s): CHF, brain tumor, parathyroid History of Any Multi-Drug Resistant Organisms: None Reported Additional Past Surgical History / Comment(s): Parathiroid removed, brain tumor removed, Past Psychological History: No Psychological Hx Reported Smoking Status: Never smoker Past Alcohol Use History: None Reported Past Drug Use History: None Reported Medications and Allergies Home Medications Medication Instructions Recorded Confirmed Type Acetaminophen Tab [Tylenol] 1,000 mg PO BID 12/01/23 12/14/23 History Atorvastatin [Lipitor] 20 mg PO HS 12/01/23 12/14/23 History Bumetanide [BUMEX] 2 mg PO DAILY 12/01/23 12/14/23 History Citalopram Hydrobromide [CeleXA] 10 mg PO DAILY 12/01/23 12/14/23 History Melatonin 1 mg PO HS 12/01/23 12/14/23 History Metoprolol Tartrate [Lopressor] 100 mg PO BID 12/01/23 12/14/23 History Potassium Chloride ER [K-Dur 10] 10 meq PO DAILY 12/01/23 12/14/23 History Rivaroxaban [Xarelto] 15 mg PO HS 12/01/23 12/14/23 History dilTIAZem HCL 60 mg PO Q8H 12/01/23 12/14/23 History estradioL 10 mcg VAGINAL SUTH 12/01/23 12/14/23 History Ammonium Lactate Lotion 1 applic TOPICAL HS 12/14/23 12/14/23 History [Lac-Hydrin 12% Lotion] Cranberry 450mg 450 mg PO HS 12/14/23 12/14/23 History Estradiol Cream [Estrace Cream 1 gm VAGINAL SUTH@2100 12/14/23 12/14/23 History 0.01%] ALPRAZolam [Xanax] 0.25 mg PO BID PRN #4 tab 12/24/23 Rx Budesonide [Pulmicort] 0.5 mg INHALATION RT-BID ml 12/24/23 Rx Diclofenac Sodium Gel [Voltaren 1% 2 gm TOPICAL QID gm 12/24/23 Rx Gel] Tamsulosin [Flomax] 0.4 mg PO DAILY #0 cap 12/24/23 Rx Allergies Allergy/AdvReac Type Severity Reaction Status Date / Time No Known Allergies Allergy Verified 12/14/23 20:56 Physical Exam Vitals: Vital Signs Temp Pulse Resp BP BP Pulse Ox 12/18/23 07:26 98.1 F 77 19 120/66 94 L 12/18/23 05:38 79 118/72 98 12/18/23 02:00 97.7 F 63 16 125/84 94 L 12/17/23 20:20 82 124/76 111/62 98 12/17/23 20:00 97.5 F L 77 16 101/67 97 12/17/23 14:00 97.5 F L 71 16 102/63 98 Intake and Output 12/17/23 12/18/23 12/18/23 22:59 06:59 14:59 Intake Total 240 Output Total 375 300 Balance -135 -300 Intake: Oral 240 Output: Urine 375 300 Other: Voiding Method Diaper External Catheter # Voids 3 # Bowel Movements 1 GENERAL DESCRIPTION: Elderly female lying in bed, no distress. No tachypnea or accessory muscle of respiration use. HEENT: Shows Pallor , no scleral icterus. Oral mucous membrane is dry. NECK: Trachea central, no thyromegaly. LUNGS: Unlabored breathing. Decreased breath sound at the base HEART: S1, S2, regular rate and rhythm. No loud murmur ABDOMEN: Soft, no tenderness , guarding or rigidity, no organomegaly EXTREMITIES: No edema of feet. SKIN: No rash, no masses palpable. NEUROLOGICAL: The patient is awake, alert, oriented x3, mood and affect normal. Results CBC & Chem 7: 12/21/23 05:26 12/24/23 05:49 Labs: Microbiology - Last 24 Hours (Table) 12/14/23 23:17 Blood Culture - Preliminary Blood 12/14/23 23:02 Blood Culture Gram Stain - Final Blood Blood Culture - Final Bacillus species Not Anthracis 12/15/23 00:40 Urine Culture - Final Urine,Voided Escherichia coli Assessment and Plan (1) Positive blood culture Current Visit: Yes Status: Acute Code(s): R78.81 - BACTEREMIA SNOMED Code(s): 478660772 (2) Urinary tract infection Current Visit: Yes Status: Acute Code(s): N39.0 - URINARY TRACT INFECTION, SITE NOT SPECIFIED SNOMED Code(s): 78609539 Plan: 1patient with a positive blood culture Bacillus species more likely skin contamination as the patient has no clinical disease to go along with it, blood cultures will be repeated to document clearance of bacteremia 2-patient did have a fever on admission positive UA urine culture with E. coli possibly source of her fever as currently no other obvious focus for this fever/infection 3-we will repeat the blood culture and check inflammatory markers 4-continue with Rocephin 1 g daily We will follow on clinical condition and cultures to further adjust medication if needed Thank you for this consultation we will follow the patient along with you Dictation was produced using [employer] dictation software. please excuse any grammatical, word or spelling errors. Time with Patient: Greater than 30
[2023-12-18] MEDS: ESTRADIOL 0.1 MG/GM VAGINAL CREAM 42.5 GM TUBE VAGINAL SCH (21:20)
[2023-12-19 09:37] LABS: Basophils # (A) 0.03 X 10*3/uL (0.00-0.10); Basophils % (A) 0.4 %; Eosinophils # (A) 0.01 X 10*3/uL (0.04-0.35); Eosinophils % (A) 0.1 %; HCT 39.8 % (37.2-46.3); HGB 12.1 g/dL (12.0-15.0); Lymphocytes # (A) 0.58 X 10*3/uL (0.90-5.00); Lymphocytes % (A) 8.5 %; MCH 30.8 pg (27.0-32.0); MCHC 30.4 g/dL (32.0-37.0); MCV 101.3 FL (80.0-97.0); Mean Platelet Volume 11.5 FL (9.5-12.2); Monocytes # (A) 0.61 X 10*3/uL (0.20-1.00); NRBC Per 100 WBC 0 X 10*3/uL (0.00-0.01); Neutrophils # (A) 5.55 X 10*3/uL (1.80-7.70); Neutrophils % (A) 81.7 %; Platelet Count 214 X 10*3/uL (140-440); RBC 3.93 X 10*6/uL (4.10-5.20); RDW 15.8 % (11.5-14.5)
--- NOTE | 2023-12-19 14:38 | P.PN ---
Subjective Progress Note Date: 12/19/23 * 88-year-old patient, follows with Dr. Sera Johnson. 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 Was treated for CHF exacerbation EF 50 to 55%, bout of epistaxis, has atrial fibrillation, secondary pulm hypertension. She was discharged to [facility] on the [place] for rehab * Patient was on the bicycle with physical therapist. Heart started racing. Patient became short of breath. Very slight chest pressure. No fever no chills. No cough. Feeling rather tired. Patient daughter at the bedside. * December 14: Patient started on IV ceftriaxone last night. [place] to be combination of pneumonia and UTI. Bumex was increased to 1 mg every 12 by cardiology. Breathing better. Spoke to the patient daughter at the bedside. * 12/15. Patient seen and examined. Patient is lethargic. Has good appetite. Denies any shortness of breath at rest. * 12/16. Patient seen and examined. Patient more alert this morning, states she feels better compared to yesterday. * 12/17. Patient seen and examined .complaint of generalized weakness. Appetite has improved. Blood cultures were positive for bacillus species in 1 bottle * 12/19/23: Patient seen and evaluated bedside, patient does complain of myalgias bilateral lower extremity. Blood work reviewed CBC showed normal WBC count, hemoglobin 12.1 platelet count 214, serum chemistries pending procalcitonin 0.11 episode of 100.7 fever on 12/17 evening PHYSICAL EXAMINATION: GENERAL: The patient is alert to person and situation, ill appearance in distress HEENT: Pupils are round and equally reacting to light. EOMI. CARDIOVASCULAR: S1 and S2 present. No murmurs, rubs, or gallops. PULMONARY: Coarse breath sound bilaterally, no wheeze ABDOMEN: Soft, nontender, nondistended, normoactive bowel sounds. No palpable organomegaly. MUSCULOSKELETAL: No joint swelling or deformity. EXTREMITIES: No cyanosis, clubbing, or pedal edema. NEUROLOGICAL: Gross neurological examination did not reveal any focal deficits. SKIN: No rashes. 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 coli, blood culture positive for bacillus species, infectious is consulted * In regards to history of atrial fibrillation continue patient on metoprolol, Cardizem, continue 0 * In regards to acute exacerbation of congestive heart failure diastolic dysfunction continue Bumex continue to monitor intake and output * Cardizem 60 mg 3 times daily. Lopressor 100 mg twice daily Objective - Vital Signs Vital signs: Vital Signs Temp 98.7 F 12/19/23 08:00 Pulse 85 12/19/23 08:00 Resp 20 12/19/23 09:45 BP 118/78 12/19/23 08:00 Pulse Ox 95 12/19/23 08:00 FiO2 Intake & Output 12/18/23 12/19/23 12/19/23 18:59 06:59 18:59 Intake Total 120 Output Total 650 175 Balance -650 -175 120 Weight 79.4 kg Intake: Oral 120 Output: Urine 650 175 Other: Voiding Method Diaper Diaper Diaper External Catheter External Catheter External Catheter - Labs CBC & Chem 7: 12/19/23 05:44 12/17/23 05:27 Labs: Abnormal Lab Results - Last 24 Hours (Table) 12/19/23 12/19/23 Range/Units 05:44 05:44 RBC 3.93 L (4.10-5.20) X 10*6/uL MCV 101.3 H (80.0-97.0) FL MCHC 30.4 L (32.0-37.0) g/dL RDW 15.8 H (11.5-14.5) % Lymphocytes # 0.58 L (0.90-5.00) X 10*3/uL Eosinophils # 0.01 L (0.04-0.35) X 10*3/uL Procalcitonin 0.11 H (0.02-0.09) ng/mL
--- NOTE | 2023-12-19 15:33 | P.PN ---
Subjective Progress Note Date: 12/19/23 Principal diagnosis: Reason for follow-up with UTI and positive blood culture Patient is a 88-year-old female with a past medical history significant for hypertension congestive heart failure history of brain tumor hypothyroidism presenting to the hospital for evaluation of new onset A-fib from the [place] patient did have a fever positive UA concerning for UTI and subsequent blood culture positive for bacillus species prompted this consultation. On today's visit that is 12/19/2023,the patient remains to be afebrile, patient is on 3 L nasal cannula supplemental oxygen, patient slightly lethargic today and had a very good historian patient did have problem with urine retention requiring reinsertion of Maldonado catheter per the nursing staff no other changes reported. Patient white count is 6.80, repeat cultures pending Objective - Vital Signs Vital signs: Vital Signs Temp 98.2 F 12/19/23 14:00 Pulse 95 12/19/23 14:00 Resp 18 12/19/23 14:00 BP 115/76 12/19/23 14:00 Pulse Ox 93 L 12/19/23 14:00 FiO2 Intake & Output 12/18/23 12/19/23 12/19/23 18:59 06:59 18:59 Intake Total 120 Output Total 650 175 Balance -650 -175 120 Weight 79.4 kg Intake: Oral 120 Output: Urine 650 175 Other: Voiding Method Diaper Diaper Diaper External Catheter External Catheter External Catheter - Exam GENERAL DESCRIPTION: An elderly female lying in bed in no distress RESPIRATORY SYSTEM: Unlabored breathing , decreased breath sounds at bases HEART: S1 S2 regular rate and rhythm , ABDOMEN: Soft , no tenderness EXTREMITIES: No edema feet - Labs CBC & Chem 7: 12/19/23 05:44 12/17/23 05:27 Labs: Abnormal Lab Results - Last 24 Hours (Table) 12/19/23 12/19/23 Range/Units 05:44 05:44 RBC 3.93 L (4.10-5.20) X 10*6/uL MCV 101.3 H (80.0-97.0) FL MCHC 30.4 L (32.0-37.0) g/dL RDW 15.8 H (11.5-14.5) % Lymphocytes # 0.58 L (0.90-5.00) X 10*3/uL Eosinophils # 0.01 L (0.04-0.35) X 10*3/uL Procalcitonin 0.11 H (0.02-0.09) ng/mL Assessment and Plan (1) Urinary tract infection Current Visit: Yes Status: Acute Code(s): N39.0 - URINARY TRACT INFECTION, SITE NOT SPECIFIED SNOMED Code(s): 17667394 (2) Positive blood culture Current Visit: Yes Status: Acute Code(s): R78.81 - BACTEREMIA SNOMED Code(s): 634803885 Plan: 1patient with a positive blood culture Bacillus species more likely skin contamination as the patient has no clinical disease to go along with it, blood cultures will be repeated to document clearance of bacteremia 2-patient did have a fever on admission positive UA urine culture with E. coli possibly source of her fever as currently no other obvious focus for this fever/infection 3-repeat bloods are currently pending, patient to continue with Rocephin for the UTI and monitor clinical course closely Dictation was produced using [employer] dictation software. please excuse any grammatical, word or spelling errors. Time with Patient: Less than 30
[2023-12-19 18:54] LABS: Albumin 3.5 g/dL (3.5-5.0); Albumin/Globulin Ratio 1.2; Calcium 8.3 mg/dL (8.4-10.2); Total Protein 6.5 g/dL (6.3-8.2)
[2023-12-19 19:31] LABS: C Reactive Protein 18.2 mg/dL (<1.0)
[2023-12-19 23:21] LABS: BUN/Creat Ratio 23.73 Ratio (12.00-20.00)
[2023-12-20] MEDS: BUMETANIDE 0.5 MG TABLET PO SCH (10:01)
[2023-12-20] MEDS: IPRATROPIUM-ALBUTEROL 3 ML NEB INHALATION STA (11:04)
--- NOTE | 2023-12-20 12:39 | P.GSCN ---
History of Present Illness Consult date: 12/20/23 Reason for Consult: Urinary retention Requesting physician: Tierra Olivia History of present illness: Patient is an 88-year-old white female recently hospitalized for exacerbation of CHF. She had an indwelling Maldonado catheter during that hospitalization. She failed a voiding trial and the Maldonado catheter was replaced. She was transferred to [facility] on [facility] for rehab. She was recently readmitted primary complain ts of weakness and fever. Suprapubic distention was noted, and bladder scan was over 400 cc. Therefore, the Maldonado catheter was replaced. The patient is a vague historian and is unable to provide reliable history. However, the patient's daughter told her nurse that she has seen Dr. Ventura in the past, and that tamsulosin improved her ability to void. Review of Systems ROS unobtainable: due to mental status Past Medical History Past Medical History: Heart Failure, Hypertension, Respiratory Disorder, Thyroid Disorder Additional Past Medical History / Comment(s): CHF, brain tumor, parathyroid History of Any Multi-Drug Resistant Organisms: None Reported Additional Past Surgical History / Comment(s): Parathiroid removed, brain tumor removed, Past Psychological History: No Psychological Hx Reported Smoking Status: Never smoker Past Alcohol Use History: None Reported Past Drug Use History: None Reported Medications and Allergies Home Medications Medication Instructions Recorded Confirmed Type Acetaminophen Tab [Tylenol] 1,000 mg PO BID 12/01/23 12/14/23 History Atorvastatin [Lipitor] 20 mg PO HS 12/01/23 12/14/23 History Bumetanide [BUMEX] 2 mg PO DAILY 12/01/23 12/14/23 History Citalopram Hydrobromide [CeleXA] 10 mg PO DAILY 12/01/23 12/14/23 History Melatonin 1 mg PO HS 12/01/23 12/14/23 History Metoprolol Tartrate [Lopressor] 100 mg PO BID 12/01/23 12/14/23 History Potassium Chloride ER [K-Dur 10] 10 meq PO DAILY 12/01/23 12/14/23 History Rivaroxaban [Xarelto] 15 mg PO HS 12/01/23 12/14/23 History dilTIAZem HCL 60 mg PO Q8H 12/01/23 12/14/23 History estradioL 10 mcg VAGINAL SUTH 12/01/23 12/14/23 History ALPRAZolam [Xanax] 0.5 mg PO DAILY #3 tab 12/08/23 12/14/23 Rx Ammonium Lactate Lotion 1 applic TOPICAL HS 12/14/23 12/14/23 History [Lac-Hydrin 12% Lotion] Cranberry 450mg 450 mg PO HS 12/14/23 12/14/23 History Estradiol Cream [Estrace Cream 1 gm VAGINAL SUTH@2100 12/14/23 12/14/23 History 0.01%] Allergies Allergy/AdvReac Type Severity Reaction Status Date / Time No Known Allergies Allergy Verified 12/14/23 20:56 Surgical - Exam Vital Signs Temp Pulse BP Pulse Ox 98.6 F 86 132/77 94 L 12/14/23 16:36 12/14/23 16:36 12/14/23 16:36 12/14/23 16:36 - General well developed, well nourished, no distress - Respiratory normal respiratory effort - Abdomen Abdomen: soft, non tender, no guarding, no rigid, no rebound - Genitourinary Maldonado catheter intact, draining clear yellow urine. - Psychiatric oriented to time, oriented to person, oriented to place, speech is normal, memory intact Results - Labs 12/19/23 05:44 12/19/23 18:34 Abnormal Lab Results - Last 24 Hours (Table) 12/19/23 Range/Units 18:34 BUN 32 H (7-17) mg/dL Est GFR (CKD-EPI) 49 L (>=60) BUN/Creatinine Ratio 23.73 H (12.00-20.00) Ratio Glucose 153 H (74-99) mg/dL Calcium 8.3 L (8.4-10.2) mg/dL AST 46 H (14-36) U/L C-Reactive Protein 18.2 H (<1.0) mg/dL Microbiology - Last 24 Hours (Table) 12/14/23 23:17 Blood Culture - Final Blood Diabetes panel 12/19/23 Range/Units 18:34 Sodium 139 (137-145) mmol/L Potassium 5.0 (3.5-5.1) mmol/L Chloride 104 (98-107) mmol/L Carbon Dioxide 25 (22-30) mmol/L BUN 32 H (7-17) mg/dL Creatinine 1.00 (0.52-1.04) mg/dL Glucose 153 H (74-99) mg/dL Calcium 8.3 L (8.4-10.2) mg/dL AST 46 H (14-36) U/L ALT 19 (4-34) U/L Alkaline Phosphatase 66 (38-126) U/L Total Protein 6.5 (6.3-8.2) g/dL Albumin 3.5 (3.5-5.0) g/dL Calcium panel 12/19/23 Range/Units 18:34 Calcium 8.3 L (8.4-10.2) mg/dL Albumin 3.5 (3.5-5.0) g/dL Pituitary panel 12/19/23 Range/Units 18:34 Sodium 139 (137-145) mmol/L Potassium 5.0 (3.5-5.1) mmol/L Chloride 104 (98-107) mmol/L Carbon Dioxide 25 (22-30) mmol/L BUN 32 H (7-17) mg/dL Creatinine 1.00 (0.52-1.04) mg/dL Glucose 153 H (74-99) mg/dL Calcium 8.3 L (8.4-10.2) mg/dL Adrenal panel 12/19/23 Range/Units 18:34 Sodium 139 (137-145) mmol/L Potassium 5.0 (3.5-5.1) mmol/L Chloride 104 (98-107) mmol/L Carbon Dioxide 25 (22-30) mmol/L BUN 32 H (7-17) mg/dL Creatinine 1.00 (0.52-1.04) mg/dL Glucose 153 H (74-99) mg/dL Calcium 8.3 L (8.4-10.2) mg/dL Total Bilirubin 1.0 (0.2-1.3) mg/dL AST 46 H (14-36) U/L ALT 19 (4-34) U/L Alkaline Phosphatase 66 (38-126) U/L Total Protein 6.5 (6.3-8.2) g/dL Albumin 3.5 (3.5-5.0) g/dL Assessment and Plan Assessment: Urine culture shows E. coli. Blood cultures show Bacillus species. (1) Retention of urine, unspecified Current Visit: Yes Status: Acute Code(s): R33.9 - RETENTION OF URINE, UNSPECIFIED SNOMED Code(s): 738896680 Plan: Will review office records. In the meantime, the patient will be placed on tamsulosin and would be a candidate for a repeat voiding trial in 1 to 2 days. Time with Patient: Greater than 30
--- NOTE | 2023-12-20 13:20 | P.PN ---
Subjective Progress Note Date: 12/20/23 * 88-year-old patient, follows with Dr. Sera Johnson. 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 Was treated for CHF exacerbation EF 50 to 55%, bout of epistaxis, has atrial fibrillation, secondary pulm hypertension. She was discharged to [facility] on [facility] for rehab * Patient was on the bicycle with physical therapist. Heart started racing. Patient became short of breath. Very slight chest pressure. No fever no chills. No cough. Feeling rather tired. Patient daughter at the bedside. * December 14: Patient started on IV ceftriaxone last night. Boyds to be combination of pneumonia and UTI. Bumex was increased to 1 mg every 12 by cardiology. Breathing better. Spoke to the patient daughter at the bedside. * 12/15. Patient seen and examined. Patient is lethargic. Has good appetite. Denies any shortness of breath at rest. * 12/16. Patient seen and examined. Patient more alert this morning, states she feels better compared to yesterday. * 12/17. Patient seen and examined .complaint of generalized weakness. Appetite has improved. Blood cultures were positive for bacillus species in 1 bottle * 12/19/23: Patient seen and evaluated bedside, patient does complain of myalgias bilateral lower extremity. Blood work reviewed CBC showed normal WBC count, hemoglobin 12.1 platelet count 214, serum chemistries pending procalcitonin 0.11 episode of 100.7 fever on 12/17 evening * 12/20/2023; patient seen and evaluated bedside, patient does complain of generalized discomfort, chest x-ray requested patient was wheezing shortness of breath. Continue patient on Bumex. Serum chemistry pending follow-up on CBC and basic metabolic panel PHYSICAL EXAMINATION: GENERAL: The patient is alert to person and situation, ill appearance in distress HEENT: Normocephalic/atraumatic CARDIOVASCULAR: S1 and S2 present. No murmurs, rubs, or gallops. PULMONARY: Coarse breath sound bilaterally, no wheeze ABDOMEN: Soft, nontender, nondistended, normoactive bowel sounds. No palpable organomegaly. MUSCULOSKELETAL: No joint swelling or deformity. EXTREMITIES: Lower extremity edema noted NEUROLOGICAL: Gross neurological examination did not reveal any focal deficits. SKIN: Bilateral skin changes lower extremity Assessment and plan Sepsis secondary pneumonia, and UTI E. 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 coli urinary tract infection * Urine culture positive for E. coli, blood culture positive for bacillus species, infectious is consulted * In regards to history of atrial fibrillation continue patient on metoprolol, Cardizem, * In regards to acute exacerbation of congestive heart failure diastolic dysfunction continue Bumex continue to monitor intake and output, follow-up chest x-ray order * Regards to generalized debility will need physical therapy Occupational Therapy evaluation * Barrier to discharge includes work of breathing, generalized weakness Objective - Vital Signs Vital signs: Vital Signs Temp 97.6 F 12/20/23 08:00 Pulse 92 12/20/23 11:17 Resp 16 12/20/23 09:35 BP 120/70 12/20/23 08:00 Pulse Ox 94 L 12/20/23 08:00 FiO2 Intake & Output 12/19/23 12/20/23 12/20/23 18:59 06:59 18:59 Intake Total 120 118 Output Total 500 300 Balance -380 -182 Weight 84.5 kg Intake: Oral 120 118 Output: Urine 500 300 Other: Voiding Method Diaper Indwelling Catheter Indwelling Catheter External Catheter - Labs CBC & Chem 7: 12/19/23 05:44 12/19/23 18:34 Labs: Abnormal Lab Results - Last 24 Hours (Table) 12/19/23 Range/Units 18:34 BUN 32 H (7-17) mg/dL Est GFR (CKD-EPI) 49 L (>=60) BUN/Creatinine Ratio 23.73 H (12.00-20.00) Ratio Glucose 153 H (74-99) mg/dL Calcium 8.3 L (8.4-10.2) mg/dL AST 46 H (14-36) U/L C-Reactive Protein 18.2 H (<1.0) mg/dL Microbiology - Last 24 Hours (Table) 12/19/23 05:44 Blood Culture - Preliminary Blood 12/14/23 23:17 Blood Culture - Final Blood
[2023-12-20] MEDS: TAMSULOSIN 0.4 MG CAP.ER.24H PO SCH (13:52)
--- NOTE | 2023-12-20 13:57 | XR ---
EXAMINATION TYPE: XR chest 1V portable DATE OF EXAM: 12/20/2023 1:49 PM CLINICAL INDICATION:Female, 88 years old with history of Shortness of breath; COMPARISON: Chest radiographs from 12/14/2023 TECHNIQUE: XR chest 1V portable Frontal view of the chest. FINDINGS: Lungs/Pleura: There is flattening of the diaphragm with increased lucency of the lungs. No evidence o f pneumothorax, pleural effusion or focal consolidation. Pulmonary vascularity: Unremarkable. Heart/mediastinum: Cardiomediastinal silhouette is enlarged and stable. Musculoskeletal: No acute osseous pathology. IMPRESSION: 1. No acute cardiopulmonary disease process. 2. COPD changes.
--- NOTE | 2023-12-20 15:39 | P.PN ---
Subjective Progress Note Date: 12/20/23 Principal diagnosis: Reason for follow-up with UTI and positive blood culture Patient is a 88-year-old female with a past medical history significant for hypertension congestive heart failure history of brain tumor hypothyroidism presenting to the hospital for evaluation of new onset A-fib from the [place] [facility] patient did have a fever positive UA concerning for UTI and subsequent blood culture positive for bacillus species prompted this consultation. On today's visit that is 12/20/2023, the patient continues to be afebrile, the patient is on 3 L nasal cannula oxygen and breathing comfortably, the Pt denies having any chest pain or cough, the patient denies having any abdominal pain no vomiting has been complaining of discomfort while sitting up in the chair and back pain. Patient did have a creatinine 1.0 white count 6.80 as of yesterday, no lab draw today blood culture has been negative Objective - Vital Signs Vital signs: Vital Signs Temp 97.5 F L 12/20/23 14:00 Pulse 77 12/20/23 14:00 Resp 18 12/20/23 14:00 BP 98/65 12/20/23 14:00 Pulse Ox 96 12/20/23 14:00 FiO2 Intake & Output 12/19/23 12/20/23 12/20/23 18:59 06:59 18:59 Intake Total 120 118 180 Output Total 500 300 Balance -380 -182 180 Weight 84.5 kg Intake: Oral 120 118 180 Output: Urine 500 300 Other: Voiding Method Diaper Indwelling Catheter Indwelling Catheter External Catheter - Exam GENERAL DESCRIPTION: An elderly female lying in bed in no distress RESPIRATORY SYSTEM: Unlabored breathing , decreased breath sounds at bases HEART: S1 S2 regular rate and rhythm , ABDOMEN: Soft , no tenderness EXTREMITIES: No edema feet - Labs CBC & Chem 7: 12/19/23 05:44 12/19/23 18:34 Labs: Abnormal Lab Results - Last 24 Hours (Table) 12/19/23 Range/Units 18:34 BUN 32 H (7-17) mg/dL Est GFR (CKD-EPI) 49 L (>=60) BUN/Creatinine Ratio 23.73 H (12.00-20.00) Ratio Glucose 153 H (74-99) mg/dL Calcium 8.3 L (8.4-10.2) mg/dL AST 46 H (14-36) U/L C-Reactive Protein 18.2 H (<1.0) mg/dL Microbiology - Last 24 Hours (Table) 12/19/23 05:44 Blood Culture - Preliminary Blood 12/14/23 23:17 Blood Culture - Final Blood Assessment and Plan (1) Urinary tract infection Current Visit: Yes Status: Acute Code(s): N39.0 - URINARY TRACT INFECTION, SITE NOT SPECIFIED SNOMED Code(s): 60608123 (2) Positive blood culture Current Visit: Yes Status: Acute Code(s): R78.81 - BACTEREMIA SNOMED Code(s): 085334313 Plan: 1patient with a positive blood culture Bacillus species more likely skin contamination as the patient has no clinical disease to go along with it, blood cultures will be repeated to document clearance of bacteremia 2-patient did have a fever on admission positive UA urine culture with E. coli possibly source of her fever as currently no other obvious focus for this fever/infection 3-repeat bloods are so far negative, patient to continue with Rocephin for the UTI and will be able to finish therapy with initial course of oral Ceftin Dictation was produced using [employer] software. please excuse any grammatical, word or spelling errors. Time with Patient: Less than 30
[2023-12-21 08:40] LABS: HCT 34.2 % (37.2-46.3); HGB 10.5 g/dL (12.0-15.0); MCH 30.7 pg (27.0-32.0); MCHC 30.7 g/dL (32.0-37.0); Mean Platelet Volume 11.6 FL (9.5-12.2); NRBC Per 100 WBC 0 X 10*3/uL (0.00-0.01); Platelet Count 195 X 10*3/uL (140-440); RBC 3.42 X 10*6/uL (4.10-5.20); RDW 15.7 % (11.5-14.5); WBC 5.65 X 10*3/uL (4.50-10.00)
[2023-12-21 08:42] LABS: BUN/Creat Ratio 23.83 Ratio (12.00-20.00); Blood Urea Nitrogen 28.6 mg/dL (9.0-27.0); Calcium 8.3 mg/dL (8.7-10.3); Carbon Dioxide 24.1 mmol/L (21.6-31.8); Chloride 104 mmol/L (96-109); Glucose 95 mg/dL (70-110); Potassium 4.5 mmol/L (3.5-5.5); Sodium 140 mmol/L (135-145)
--- NOTE | 2023-12-21 10:01 | P.PN ---
Subjective Progress Note Date: 12/21/23 The patient is in the hospital with probable UTI with sepsis. She had an indwelling catheter from a recent hospitalization for congestive heart failure and incomplete bladder emptying. She chronically has this problem. It sounds as if the catheter obstructed in retention developed. The catheter is replaced and it is now draining appropriately. Objective - Vital Signs Vital signs: Vital Signs Temp 97.6 F 12/21/23 08:00 Pulse 66 12/21/23 08:00 Resp 18 12/21/23 08:00 BP 99/65 12/21/23 08:00 Pulse Ox 91 L 12/21/23 08:00 FiO2 Intake & Output 12/20/23 12/21/23 12/21/23 18:59 06:59 18:59 Intake Total 270 Output Total 350 Balance 270 -350 Weight 83.5 kg Intake: Oral 270 Output: Urine 350 Other: Voiding Method Indwelling Catheter Indwelling Catheter # Bowel Movements 1 - Labs CBC & Chem 7: 12/21/23 05:26 12/21/23 05:26 Labs: Abnormal Lab Results - Last 24 Hours (Table) 12/21/23 12/21/23 Range/Units 05:26 05:26 RBC 3.42 L (4.10-5.20) X 10*6/uL Hgb 10.5 L (12.0-15.0) g/dL Hct 34.2 L (37.2-46.3) % MCV 100.0 H (80.0-97.0) FL MCHC 30.7 L (32.0-37.0) g/dL RDW 15.7 H (11.5-14.5) % BUN 28.6 H (9.0-27.0) mg/dL Est GFR (CKD-EPI) 44 L (>=60) BUN/Creatinine Ratio 23.83 H (12.00-20.00) Ratio Calcium 8.3 L (8.7-10.3) mg/dL Microbiology - Last 24 Hours (Table) 12/19/23 05:44 Blood Culture - Preliminary Blood Assessment and Plan Assessment: Impression: Urinary tract infection with sepsis. Chronic congestive heart fa ilure. Chronic incomplete bladder emptying. Recommendations: The patient is stronger and ambulating the catheter can be removed for another voiding trial. She does not appear to be ready for that at this point in time.
--- NOTE | 2023-12-21 22:14 | P.PN ---
Subjective Progress Note Date: 12/21/23 Patient is evaluated in follow up today. Continues to remain short of breath at rest. Continues on oxygen via nasal cannula patient is on oxygen chronically wearing 3L. Remains on oral diuretics with oral bumex. Blood pressure per patient and family dose run on the lower side she is currently in the 90-100s systolic. Patient is anticoagulated with xarelto. Heart rate remains control; currently in atrial fibrillation. Urine culture has finalized showing E.Coli remains on IV ceftriaxone. Review of Systems Constitutional: Denied any fatigue denied any fever. Cardio vascular: denied any chest pain, palpitations Gastrointestinal: denied any nausea, vomiting, diarrhea Pulmonary: Denied any shortness of breath cough Neurologic denied any new focal deficits All inpatient medications were reviewed and appropriate changes in these medications as dictated in the interval history and assessment and plan. PHYSICAL EXAMINATION: GENERAL: The patient is alert and oriented x3, not in any acute distress. Well developed, well nourished. On 3L of oxygen HEENT: Pupils are round and equally reacting to light. EOMI. No scleral icterus. No conjunctival pallor. Normocephalic, atraumatic. No pharyngeal erythema. No thyromegaly. CARDIOVASCULAR: S1 and S2 present. No murmurs, rubs, or gallops. PULMONARY: Chest is clear to auscultation, no wheezing or crackles. ABDOMEN: Soft, nontender, nondistended, normoactive bowel sounds. No palpable organomegaly. MUSCULOSKELETAL: No joint swelling or deformity. EXTREMITIES: No cyanosis, clubbing, or pedal edema. NEUROLOGICAL: Gross neurological examination did not reveal any focal deficits. SKIN: No rashes. Assessment and Plan -Sepsis secondary to E.Coli UTI without clinical evidence of pneumonia on chest xray. Chest xray revealing vascular congestion which has improved with diuretics. -Acute on chronic heart failure with preserved EF, proBNP 5190 patient currently transitioned to oral bumex daily. -Chronic hypoxic respiratory failure on home O2 -Persistent atrial fibrillation with controlled ventricular rate anticoagulated with xarelto. 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 GI prophylaxis DVT prophylaxis Do Not Resuscitate/Do Not Intubate Recommend to hold oral bumex dose in the am secondary to low blood pressures. Patient remains on nasal cannula oxygen support which she is on chronically. Cardiology following. Remains on IV ceftriaxone with transition to oral ceftin on discharge. Patient is recommended to d/c to subacute rehab when medically stable. Possible D/C in the next 24 hours. The impression and plan of care has been dictated by Cony Estrada, Nurse Practitioner as directed. Dr. Miley MD I have performed a history and physical examination and medical decision making of this patient, discussed the same with the dictator, and agree with the dictators assessment and plan as written, documented as a scribe. Based on total visit time, I have performed more than 50% of this visit. Objective - Vital Signs Vital signs: Vital Signs Temp 97.6 F 12/21/23 14:00 Pulse 83 12/21/23 14:00 Resp 20 12/21/23 14:00 BP 98/62 12/21/23 14:00 Pulse Ox 92 L 12/21/23 14:00 FiO2 Intake & Output 12/20/23 12/21/23 12/21/23 18:59 06:59 18:59 Intake Total 270 486 Output Total 350 Balance 270 -350 486 Weight 83.5 kg Intake: Oral 270 486 Output: Urine 350 Other: Voiding Method Indwelling Catheter Indwelling Catheter Indwelling Catheter # Bowel Movements 1 - Labs CBC & Chem 7: 12/21/23 05:26 12/21/23 05:26 Labs: Abnormal Lab Results - Last 24 Hours (Table) 12/21/23 12/21/23 Range/Units 05:26 05:26 RBC 3.42 L (4.10-5.20) X 10*6/uL Hgb 10.5 L (12.0-15.0) g/dL Hct 34.2 L (37.2-46.3) % MCV 100.0 H (80.0-97.0) FL MCHC 30.7 L (32.0-37.0) g/dL RDW 15.7 H (11.5-14.5) % BUN 28.6 H (9.0-27.0) mg/dL Est GFR (CKD-EPI) 44 L (>=60) BUN/Creatinine Ratio 23.83 H (12.00-20.00) Ratio Calcium 8.3 L (8.7-10.3) mg/dL Microbiology - Last 24 Hours (Table) 12/19/23 05:44 Blood Culture - Preliminary Blood Assessment and Plan Time with Patient: Less than 30
--- NOTE | 2023-12-21 22:37 | P.PN ---
Subjective Progress Note Date: 12/21/23 Principal diagnosis: Reason for follow-up with UTI and positive blood culture Patient is a 88-year-old female with a past medical history significant for hypertension congestive heart failure history of brain tumor hypothyroidism presenting to the hospital for evaluation of new onset A-fib from [facility] patient did have a fever positive UA concerning for UTI and subsequent blood culture positive for bacillus species prompted this consultation. On today's visit that is 12/21/2023, Patient is afebrile patient is currently on 3 L nasal cannula oxygen and denies having any shortness of breath, the patient denies any chest pain or cough, the patient denies any nausea vomiting did not have any abdominal pain and no diarrhea, no new symptoms. Patient did have a white count of 5.65 creatinine is 1.2 repeat blood culture negative Objective - Vital Signs Vital signs: Vital Signs Temp 97.6 F 12/21/23 08:00 Pulse 66 12/21/23 08:00 Resp 18 12/21/23 08:00 BP 99/65 12/21/23 08:00 Pulse Ox 91 L 12/21/23 08:00 FiO2 Intake & Output 12/20/23 12/21/23 12/21/23 18:59 06:59 18:59 Intake Total 270 368 Output Total 350 Balance 270 -350 368 Weight 83.5 kg Intake: Oral 270 368 Output: Urine 350 Other: Voiding Method Indwelling Catheter Indwelling Catheter Indwelling Catheter # Bowel Movements 1 - Exam GENERAL DESCRIPTION: An elderly female lying in bed in no distress RESPIRATORY SYSTEM: Unlabored breathing , decreased breath sounds at bases HEART: S1 S2 regular rate and rhythm , ABDOMEN: Soft , no tenderness EXTREMITIES: No edema feet - Labs CBC & Chem 7: 12/21/23 05:26 12/21/23 05:26 Labs: Abnormal Lab Results - Last 24 Hours (Table) 12/21/23 12/21/23 Range/Units 05:26 05:26 RBC 3.42 L (4.10-5.20) X 10*6/uL Hgb 10.5 L (12.0-15.0) g/dL Hct 34.2 L (37.2-46.3) % MCV 100.0 H (80.0-97.0) FL MCHC 30.7 L (32.0-37.0) g/dL RDW 15.7 H (11.5-14.5) % BUN 28.6 H (9.0-27.0) mg/dL Est GFR (CKD-EPI) 44 L (>=60) BUN/Creatinine Ratio 23.83 H (12.00-20.00) Ratio Calcium 8.3 L (8.7-10.3) mg/dL Microbiology - Last 24 Hours (Table) 12/19/23 05:44 Blood Culture - Preliminary Blood Assessment and Plan (1) Urinary tract infection Current Visit: Yes Status: Acute Code(s): N39.0 - URINARY TRACT INFECTION, SITE NOT SPECIFIED SNOMED Code(s): 92680504 (2) Positive blood culture Current Visit: Yes Status: Acute Code(s): R78.81 - BACTEREMIA SNOMED Code(s): 496806291 Plan: 1patient with a positive blood culture Bacillus species more likely skin contamination as the patient has no clinical disease to go along with it, blood cultures will be repeated to document clearance of bacteremia 2-patient did have a fever on admission positive UA urine culture with E. coli possibly source of her fever as currently no other obvious focus for this fever/infection 3-repeat blood culture has been negative, patient to continue with Rocephin for the UTI and plan is to finish therapy with short course of oral Ceftin on joni Dictation was produced using [employer] dictation software. please excuse any grammatical, word or spelling errors. Time with Patient: Less than 30
[2023-12-22] MEDS ORDERED: BUMETANIDE 1 MG TAB PO SCH (09:00)
[2023-12-22] MEDS: METOPROLOL TARTRATE 50 MG TAB PO SCH (09:24)
[2023-12-22] MEDS: BUMETANIDE 1 MG TAB PO SCH (09:25)
[2023-12-22] MEDS ORDERED: IPRATROPIUM-ALBUTEROL 3 ML NEB INHALATION PRN (11:57)
[2023-12-22] MEDS: IPRATROPIUM-ALBUTEROL 3 ML NEB INHALATION SCH (12:23)
--- NOTE | 2023-12-22 15:47 | P.PN ---
Subjective Progress Note Date: 12/22/23 Principal diagnosis: Reason for follow-up with UTI and positive blood culture Patient is a 88-year-old female with a past medical history significant for hypertension congestive heart failure history of brain tumor hypothyroidism presenting to the hospital for evaluation of new onset A-fib from the senior living patient did have a fever positive UA concerning for UTI and subsequent blood culture positive for bacillus species prompted this consultation. On today's visit that is 12/22/2023, patient has been afebrile, patient is breathing comfortably and is currently on 3 L nasal cannula oxygen patient denies having any significant cough no chest pain shortness of breath, patient denies nausea vomiting or diarrhea and no abdominal pain, has been mostly complaining of pain to the lower back area. Patient did not have any blood draw today white count normal as of yesterday 5.65 blood culture repeat negative Objective - Vital Signs Vital signs: Vital Signs Temp 97.5 F L 12/22/23 07:55 Pulse 78 12/22/23 12:39 Resp 18 12/22/23 09:24 BP 125/83 12/22/23 07:55 Pulse Ox 94 L 12/22/23 08:52 FiO2 Intake & Output 12/21/23 12/22/23 12/22/23 18:59 06:59 18:59 Intake Total 486 450 118 Output Total 300 700 Balance 186 -250 118 Weight 85.049 kg Intake: Oral 486 450 118 Output: Urine 300 700 Other: Voiding Method Indwelling Catheter Indwelling Catheter Indwelling Catheter - Exam GENERAL DESCRIPTION: An elderly female lying in bed in no distress RESPIRATORY SYSTEM: Unlabored breathing , decreased breath sounds at bases HEART: S1 S2 regular rate and rhythm , ABDOMEN: Soft , no tenderness EXTREMITIES: No edema feet - Labs CBC & Chem 7: 12/21/23 05:26 12/21/23 05:26 Labs: Microbiology - Last 24 Hours (Table) 12/19/23 05:44 Blood Culture - Preliminary Blood Assessment and Plan (1) Urinary tract infection Current Visit: Yes Status: Acute Code(s): N39.0 - URINARY TRACT INFECTION, SITE NOT SPECIFIED SNOMED Code(s): 73290229 (2) Positive blood culture Current Visit: Yes Status: Acute Code(s): R78.81 - BACTEREMIA SNOMED Code(s): 400892620 Plan: 1patient with a positive blood culture Bacillus species more likely skin contamination as the patient has no clinical disease to go along with it, blood cultures has been repeated to document clearance of bacteremia and they have been negative so far 2-patient did have a fever on admission positive UA urine culture with E. coli, patient to continue with Rocephin for the UTI and plan is to finish therapy with short course of oral Ceftin on discharge Family at the bedside questions answered Dictation was produced using [employer] dictation software. please excuse any grammatical, word or spelling errors. Time with Patient: Less than 30
[2023-12-22] MEDS: BUDESONIDE 0.5 MG/2 ML NEBU INHALATION SCH (20:42)
--- NOTE | 2023-12-22 22:08 | P.PN ---
Subjective Progress Note Date: 12/22/23 Patient is evaluated in follow up today. Continues to remain short of breath at rest. Continues on oxygen via nasal cannula patient is on oxygen chronically wearing 3L. Remains on oral diuretics with oral bumex. Blood pressure per patient and family dose run on the lower side she is currently in the 90-100s systolic. Patient is anticoagulated with xarelto. Heart rate remains control; currently in atrial fibrillation. Urine culture has finalized showing E.Coli remains on IV ceftriaxone. 12/22/2023 Patient is evaluated in follow up today. Patient feeling less short of breath today. BP remains on the lower side. Recommending to decrease metoprolol to 50 mg BID. Indwelling catheter in place for urinary retention. Continues on IV ceftriaxone. Review of Systems Constitutional: Denied any fatigue denied any fever. Cardio vascular: denied any chest pain, palpitations Gastrointestinal: denied any nausea, vomiting, diarrhea Pulmonary: Denied any shortness of breath cough Neurologic denied any new focal deficits All inpatient medications were reviewed and appropriate changes in these medications as dictated in the interval history and assessment and plan. PHYSICAL EXAMINATION: GENERAL: The patient is alert and oriented x3, not in any acute distress. Well developed, well nourished. On 3L of oxygen HEENT: Pupils are round and equally reacting to light. EOMI. No scleral icterus. No conjunctival pallor. Normocephalic, atraumatic. No pharyngeal erythema. No thyromegaly. CARDIOVASCULAR: S1 and S2 present. No murmurs, rubs, or gallops. PULMONARY: Chest is clear to auscultation, no wheezing or crackles. ABDOMEN: Soft, nontender, nondistended, normoactive bowel sounds. No palpable organomegaly. MUSCULOSKELETAL: No joint swelling or deformity. EXTREMITIES: No cyanosis, clubbing, or pedal edema. NEUROLOGICAL: Gross neurological examination did not reveal any focal deficits. SKIN: No rashes. Assessment and Plan -Sepsis secondary to E.Coli UTI without clinical evidence of pneumonia on chest xray. Chest xray revealing vascular congestion which has improved with diuretics. -Acute on chronic heart failure with preserved EF, proBNP 5190 patient currently transitioned to oral bumex daily. -Chronic hypoxic respiratory failure on home O2 -Persistent atrial fibrillation with controlled ventricular rate anticoagulated with xarelto. 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 GI prophylaxis DVT prophylaxis Do Not Resuscitate/Do Not Intubate Bumex will be resumed in the AM. Metoprolol has been decreased to 50 mg BID. Patient remains on nasal cannula oxygen support which she is on chronically. Cardiology following. Remains on IV ceftriaxone with transition to oral ceftin on discharge. Patient is recommended to d/c to subacute rehab when medically stable. Possible [facility]C to [facility] in the AM. Recommend to repeat BMP in the AM and chest xray in the AM. The impression and plan of care has been dictated by Cony Estrada Nurse Practitioner as directed. Dr. Miley MD I have performed a history and physical examination and medical decision making of this patient, discussed the same with the dictator, and agree with the dictators assessment and plan as written, documented as a scribe. Based on total visit time, I have performed more than 50% of this visit. Objective - Vital Signs Vital signs: Vital Signs Temp 97.3 F L 12/22/23 14:47 Pulse 82 12/22/23 14:47 Resp 17 12/22/23 14:47 BP 112/69 12/22/23 14:47 Pulse Ox 94 L 12/22/23 14:47 FiO2 Intake & Output 12/21/23 12/22/23 12/22/23 18:59 06:59 18:59 Intake Total 486 450 118 Output Total 300 700 Balance 186 -250 118 Weight 85.049 kg Intake: Oral 486 450 118 Output: Urine 300 700 Other: Voiding Method Indwelling Catheter Indwelling Catheter Indwelling Catheter - Labs CBC & Chem 7: 12/21/23 05:26 12/21/23 05:26 Labs: Microbiology - Last 24 Hours (Table) 12/19/23 05:44 Blood Culture - Preliminary Blood Assessment and Plan Time with Patient: Less than 30
--- NOTE | 2023-12-23 08:51 | XR ---
EXAMINATION TYPE: XR chest 2V DATE OF EXAM: 12/23/2023 6:53 AM CLINICAL INDICATION:Female, 88 years old with history of hypoxia; [facility] COMPARISON: Chest radiographs from 12/20/2023 TECHNIQUE: XR chest 2V Frontal and lateral views of the chest. FINDINGS: Lungs/Pleura: Low lung volumes are present. There is no evidence of pleural effusion, focal consolida tion, or pneumothorax. Pulmonary vascularity: Unremarkable. Heart/mediastinum: Cardiomediastinal silhouette is enlarged and stable. Atherosclerotic calcificatio ns are seen in the aorta. Musculoskeletal: No acute osseous pathology. Other findings: None IMPRESSION: Low lung volumes with a generalized hazy appearance which could represent atelectasis versus pulmonar y edema correlate with serum BNP.
[2023-12-23 12:11] LABS: BUN/Creat Ratio 25.56 Ratio (12.00-20.00); Calcium 8.8 mg/dL (8.7-10.3); Carbon Dioxide 22.8 mmol/L (21.6-31.8); Chloride 111 mmol/L (96-109); Glucose 98 mg/dL (70-110); Potassium 4.3 mmol/L (3.5-5.5); Sodium 145 mmol/L (135-145)
--- NOTE | 2023-12-23 19:43 | P.PN ---
Subjective Progress Note Date: 12/23/23 Patient is evaluated in follow up today. Continues to remain short of breath at rest. Continues on oxygen via nasal cannula patient is on oxygen chronically wearing 3L. Remains on oral diuretics with oral bumex. Blood pressure per patient and family dose run on the lower side she is currently in the 90-100s systolic. Patient is anticoagulated with xarelto. Heart rate remains control; currently in atrial fibrillation. Urine culture has finalized showing E.Coli remains on IV ceftriaxone. 12/22/2023 Patient is evaluated in follow up today. Patient feeling less short of breath today. BP remains on the lower side. Recommending to decrease metoprolol to 50 mg BID. Indwelling catheter in place for urinary retention. Continues on IV ceftriaxone. 12/23/2023 Patient is evaluated today in follow up resting in bed. Family at the bedside. Reporting shortness of breath however appears more as anxiety and patient is continued on prn xanax for this. Patients lungs are clear and will be continued on oral bumex. Renal function has normalized. Continues on IV ceftriaxone while inpatient. Patient has IDC in place due to urinary retention which will undergo voiding trial when she is more ambulatory. Review of Systems Constitutional: Denied any fatigue denied any fever. Cardio vascular: denied any chest pain, palpitations Gastrointestinal: denied any nausea, vomiting, diarrhea Pulmonary: Denied any shortness of breath cough Neurologic denied any new focal deficits All inpatient medications were reviewed and appropriate changes in these medications as dictated in the interval history and assessment and plan. PHYSICAL EXAMINATION: GENERAL: The patient is alert and oriented x3, not in any acute distress. Well developed, well nourished. On 3L of oxygen HEENT: Pupils are round and equally reacting to light. EOMI. No scleral icterus. No conjunctival pallor. Normocephalic, atraumatic. No pharyngeal erythema. No thyromegaly. CARDIOVASCULAR: S1 and S2 present. No murmurs, rubs, or gallops. PULMONARY: Chest is clear to auscultation, no wheezing or crackles. ABDOMEN: Soft, nontender, nondistended, normoactive bowel sounds. No palpable organomegaly. MUSCULOSKELETAL: No joint swelling or deformity. EXTREMITIES: No cyanosis, clubbing, or pedal edema. NEUROLOGICAL: Gross neurological examination did not reveal any focal deficits. Generalized weakness. SKIN: No rashes. Assessment and Plan -Sepsis secondary to E.Coli UTI without clinical evidence of pneumonia on chest xray. Chest xray revealing vascular congestion which has improved with diuretics. -Acute on chronic heart failure with preserved EF, proBNP 5190 patient currently transitioned to oral bumex daily. -Chronic hypoxic respiratory failure on home O2 -Urine retention from incomplete bladder emptying with indwelling catheter in place. Patient was evaluated by urology. -Persistent atrial fibrillation with controlled ventricular rate anticoagulated with xarelto. 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 GI prophylaxis DVT prophylaxis Do Not Resuscitate/Do Not Intubate Bumex has been resumed. Metoprolol has been decreased to 50 mg BID. Patient remains on nasal cannula oxygen support which she is on chronically. Cardiology following. Remains on IV ceftriaxone with transition to oral ceftin on discharge. Patient is recommended to d/c to subacute rehab when medically stable. Possible [facility]C to [facility] in the next 24-48 hours. Recommend to repeat BMP in the AM. The impression and plan of care has been dictated by Cony Estrada, Nurse Practitioner as directed. Dr. Miley MD I have performed a history and physical examination and medical decision making of this patient, discussed the same with the dictator, and agree with the dictators assessment and plan as written, documented as a scribe. Based on total visit time, I have performed more than 50% of this visit. Objective - Vital Signs Vital signs: Vital Signs Temp 97.3 F L 12/23/23 14:39 Pulse 78 12/23/23 14:39 Resp 18 12/23/23 14:39 BP 100/63 12/23/23 14:39 Pulse Ox 91 L 12/23/23 14:39 FiO2 Intake & Output 12/22/23 12/23/23 12/23/23 18:59 06:59 18:59 Intake Total 118 0 Output Total 250 350 Balance -132 -350 0 Intake: Oral 118 0 Output: Urine 250 350 Other: Voiding Method Indwelling Catheter Indwelling Catheter # Bowel Movements 2 1 - Labs CBC & Chem 7: 12/21/23 05:26 12/23/23 06:13 Labs: Abnormal Lab Results - Last 24 Hours (Table) 12/23/23 Range/Units 06:13 Chloride 111 H (96-109) mmol/L BUN/Creatinine Ratio 25.56 H (12.00-20.00) Ratio Microbiology - Last 24 Hours (Table) 12/19/23 05:44 Blood Culture - Preliminary Blood Assessment and Plan Time with Patient: Less than 30
[2023-12-23] MEDS: ALPRAZolam 0.25 MG TAB PO PRN (21:59)
--- NOTE | 2023-12-23 23:29 | P.PN ---
Subjective Progress Note Date: 12/23/23 Principal diagnosis: Reason for follow-up with UTI and positive blood culture Patient is a 88-year-old female with a past medical history significant for hypertension congestive heart failure history of brain tumor hypothyroidism presenting to the hospital for evaluation of new onset A-fib from the group home patient did have a fever positive UA concerning for UTI and subsequent blood culture positive for bacillus species prompted this consultation. On today's visit that is 12/23/2023,the patient denies any fever or any chills, patient is breathing comfortably on 2 L nasal cannula oxygen, the patient denies chest pain shortness of breath and no significant cough, patient denies abdominal pain, no nausea vomiting or diarrhea, has been mostly complaining of pain in lower back area. Patient did have a creatinine 0.9 blood culture repeat has been negative Objective - Vital Signs Vital signs: Vital Signs Temp 95 F L 12/23/23 18:48 Pulse 74 12/23/23 19:56 Resp 16 12/23/23 18:48 BP 130/75 12/23/23 18:48 Pulse Ox 92 L 12/23/23 18:48 FiO2 Intake & Output 12/23/23 12/23/23 12/24/23 06:59 18:59 06:59 Intake Total 540 Output Total 350 Balance -350 540 Intake: Oral 540 Output: Urine 350 Other: Voiding Method Indwelling Catheter # Voids 0 # Bowel Movements 1 - Exam GENERAL DESCRIPTION: An elderly female lying in bed in no distress RESPIRATORY SYSTEM: Unlabored breathing , decreased breath sounds at bases HEART: S1 S2 regular rate and rhythm , ABDOMEN: Soft , no tenderness EXTREMITIES: No edema feet - Labs CBC & Chem 7: 12/21/23 05:26 12/23/23 06:13 Labs: Abnormal Lab Results - Last 24 Hours (Table) 12/23/23 Range/Units 06:13 Chloride 111 H (96-109) mmol/L BUN/Creatinine Ratio 25.56 H (12.00-20.00) Ratio Assessment and Plan (1) Urinary tract infection Current Visit: Yes Status: Acute Code(s): N39.0 - URINARY TRACT INFECTION, SITE NOT SPECIFIED SNOMED Code(s): 09991926 (2) Positive blood culture Current Visit: Yes Status: Acute Code(s): R78.81 - BACTEREMIA SNOMED Code(s): 818570153 Plan: 1patient with a positive blood culture Bacillus species more likely skin cont amination as the patient has no clinical disease to go along with it, blood cultures has been repeated to document clearance of bacteremia and they have been negative so far no need for further workup for the positive blood culture 2-patient did have a fever on admission positive UA urine culture with E. coli, patient to continue with Rocephin for the UTI while inpatient and monitor clinical course closely Dictation was produced using [employer] dictation software. please excuse any grammatical, word or spelling errors. Time with Patient: Less than 30
[2023-12-24 11:41] LABS: Blood Urea Nitrogen 21.6 mg/dL (9.0-27.0); Calcium 8.6 mg/dL (8.7-10.3); Chloride 112 mmol/L (96-109); Glucose 100 mg/dL (70-110); Potassium 4.3 mmol/L (3.5-5.5); Sodium 146 mmol/L (135-145)
--- NOTE | 2023-12-24 13:49 | P.DS ---
Providers Date of admission: 12/14/23 21:55 Attending physician: Lawrence Tamayo Consults: 12/18/23 09:18 Consult Physician Routine Consulting Provider: Nile Amor Consult Reason/Comments: Positive cultures Do you want consulting provider notified?: Yes 12/19/23 12:26 Consult Physician Routine Consulting Provider: Aquilino Henson Consult Reason/Comments: urinary retention Do you want consulting provider notified?: Yes Primary care physician: Jamil Berry [facility] Course: Final Diagnosis -Sepsis secondary to E.Coli UTI without clinical evidence of pneumonia on chest xray. -Acute on chronic heart failure with preserved EF, proBNP 5190 patient currently transitioned to oral bumex daily. -Chronic hypoxic respiratory failure on home O2 -Urine retention from incomplete bladder emptying with indwelling catheter in place. Patient was evaluated by urology. -Persistent atrial fibrillation with controlled ventricular rate anticoagulated with xarelto. -Bacteremia with Bacillus species likely a contaminant and follow up blood cultures are negative. 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 GI prophylaxis DVT prophylaxis Do Not Resuscitate/Do Not Intubate Discharge Disposition Medically patient is cleared for discharge back to subacute rehab. Patient will continue with indwelling Maldonado catheter and also has been continued on Flomax. Once patient is up and more ambulatory would recommend a voiding trial and to follow-up with urology as needed in the office. Patient has completed 10 days of IV ceftriaxone for the positive E.Coli UTI and will not require any further antibiotics on discharge. Patient will continue on Xanax as needed for acute episodes of anxiety and she is also been started on Pulmicort twice a day. Patient to repeat a basic metabolic panel in 2 to 3 days. Follow-up with her primary care provider, infectious disease and urology on discharge. Patient should see cardiology in 1 to 2 weeks. Hospital Course This is an 88-year-old female who follows with Dr. Sera ramos. Medical history significant for hypertension, hypothyroidism, brain tumor that has left patient blind in the left eye, atrial fibrillation and congestive heart failure. Patient was recently in the hospital December 01 to December 05 where she was treated for a CHF exacerbation atrial fibrillation and secondary pulmonary hypertension. Patient was discharged to [facility] for rehab. Patient returns to the hospital for further evaluation as she was experiencing heart racing and palpitations with shortness of breath while she was exercising on the bicycle. Patient has reported feeling chest pressure and fatigue. Patient was found to have a positive urinary tract infection and was started empirically on IV ceftriaxone with an infectious disease consultation. Her proBNP on admission was in the 5000's and patient was considered to be in a mild heart failure exacerbation and was started on Bumex. Patient has been having intermittent episodes of shortness of breath she is chronically on 3 L oxygen which has been maintained at this hospital stay. She did have a positive blood culture for bacillus species was found to be a contaminant as her follow-up blood culture was negative. Her urine culture was positive for E. coli. She has completed a 10 days of IV antibiotics while in the hospital not require any further antibiotic therapy on discharge. Her chest x-ray shows improvement in the p ulmonary vascular congestion. Her lungs are clear and she is no longer reporting any shortness of breath. Maldonado catheter was changed out she was seen by urology who is recommending to continue with indwelling catheter and also continue on Flomax once patient is more ambulatory the Maldonado catheter can be discontinued. Most recent blood work reveals a sodium level of 145, BUN of 23.0, creatinine of 0.9. Her procalcitonin level was elevated mildly at 0.11. She is not having any fevers and her white blood cell count is 5.65. Patient will be discharged back to [facility] to continue her rehabilitation today. Please see medication reconciliation for a list of current medications. Thank you for allowing us to participate in the care of this patient. The impression and plan of care has been dictated by Cony Estrada, Nurse Practitioner as directed. Dr. Miley MD I have performed a history and physical examination and medical decision making of this patient, discussed the same with the dictator, and agree with the dictators assessment and plan as written, documented as a scribe. Based on total visit time, I have performed more than 50% of this visit. Patient Condition at Discharge: Fair Plan - Discharge Summary Discharge Rx Participant: No New Discharge Prescriptions: New Budesonide [Pulmicort] 0.5 mg INHALATION RT-BID ml ALPRAZolam [Xanax] 0.25 mg PO BID PRN #4 tab PRN Reason: Anxiety Tamsulosin [Flomax] 0.4 mg PO DAILY #0 cap Diclofenac Sodium Gel [Voltaren 1% Gel] 2 gm TOPICAL QID gm Continue Atorvastatin [Lipitor] 20 mg PO HS estradioL 10 mcg VAGINAL SUTH Potassium Chloride ER [K-Dur 10] 10 meq PO DAILY Bumetanide [BUMEX] 2 mg PO DAILY Cranberry 450mg 450 mg PO HS Ammonium Lactate Lotion [Lac-Hydrin 12% Lotion] 1 applic TOPICAL HS Rivaroxaban [Xarelto] 15 mg PO HS Metoprolol Tartrate [Lopressor] 100 mg PO BID Citalopram Hydrobromide [CeleXA] 10 mg PO DAILY dilTIAZem HCL 60 mg PO Q8H Melatonin 1 mg PO HS Acetaminophen Tab [Tylenol] 1,000 mg PO BID Estradiol Cream [Estrace Cream 0.01%] 1 gm VAGINAL SUTH@2100 Discontinued ALPRAZolam [Xanax] 0.5 mg PO DAILY #3 tab Discharge Medication List Acetaminophen Tab [Tylenol] 1,000 mg PO BID 12/01/23 [History] Atorvastatin [Lipitor] 20 mg PO HS 12/01/23 [History] Bumetanide [BUMEX] 2 mg PO DAILY 12/01/23 [History] Citalopram Hydrobromide [CeleXA] 10 mg PO DAILY 12/01/23 [History] Melatonin 1 mg PO HS 12/01/23 [History] Metoprolol Tartrate [Lopressor] 100 mg PO BID 12/01/23 [History] Potassium Chloride ER [K-Dur 10] 10 meq PO DAILY 12/01/23 [History] Rivaroxaban [Xarelto] 15 mg PO HS 12/01/23 [History] dilTIAZem HCL 60 mg PO Q8H 12/01/23 [History] estradioL 10 mcg VAGINAL SUTH 12/01/23 [History] Ammonium Lactate Lotion [Lac-Hydrin 12% Lotion] 1 applic TOPICAL HS 12/14/23 [History] Cranberry 450mg 450 mg PO HS 12/14/23 [History] Estradiol Cream [Estrace Cream 0.01%] 1 gm VAGINAL SUTH@2100 12/14/23 [History] ALPRAZolam [Xanax] 0.25 mg PO BID PRN #4 tab 12/24/23 [Rx] Budesonide [Pulmicort] 0.5 mg INHALATION RT-BID ml 12/24/23 [Rx] Diclofenac Sodium Gel [Voltaren 1% Gel] 2 gm TOPICAL QID gm 12/24/23 [Rx] Tamsulosin [Flomax] 0.4 mg PO DAILY #0 cap 12/24/23 [Rx] Follow up Appointment(s)/Referral(s): Jamil Juárez DO [Primary Care Provider] - 1-2 days [facility] the [place], [NON-STAFF] - 1 Week Sera Johnson MD [Family Provider] - 1-2 Days Nile Amor MD [STAFF PHYSICIAN] - 1 Week Ambulatory/Diagnostic Orders: Basic Metabolic Panel [LAB.AMB] Time Frame: 3 Days, Location: None Selected Discharge Disposition: TRANSFER TO SNF/ECF
[2023-12-24 15:09] VITALS: BP 119/71; RESP 22; TEMP 97.5
--- NOTE | 2023-12-24 15:43 | P.PN ---
Subjective Progress Note Date: 12/24/23 Principal diagnosis: Reason for follow-up with UTI and positive blood culture Patient is a 88-year-old female with a past medical history significant for hypertension congestive heart failure history of brain tumor hypothyroidism presenting to the hospital for evaluation of new onset A-fib from the alf patient did have a fever positive UA concerning for UTI and subsequent blood culture positive for bacillus species prompted this consultation. On today's visit that is 12/24/2023,the patient remains to be afebrile, patient is on 3 L nasal cannula supplemental oxygen and denies any shortness of breath no chest pain or cough.Patient denies having any nausea or vomiting, no abdominal pain and no diarrhea has been reported, patient feeling better wants to go home. Patient did have a creatinine 1.0 no CBC was done today blood culture repeat has been negative Objective - Vital Signs Vital signs: Vital Signs Temp 97.5 F L 12/24/23 14:00 Pulse 74 12/24/23 15:29 Resp 22 12/24/23 14:00 BP 119/71 12/24/23 14:00 Pulse Ox 97 12/24/23 14:00 FiO2 Intake & Output 12/23/23 12/24/23 12/24/23 18:59 06:59 18:59 Intake Total 540 120 Output Total 2150 650 Balance 540 -2150 -530 Intake: Oral 540 120 Output: Urine 2150 650 Uretheral ([place]) 1000 Other: Voiding Method Indwelling Catheter # Voids 0 # Bowel Movements 1 1 - Exam GENERAL DESCRIPTION: An elderly female lying in bed in no distress RESPIRATORY SYSTEM: Unlabored breathing , decreased breath sounds at bases HEART: S1 S2 regular rate and rhythm , ABDOMEN: Soft , no tenderness EXTREMITIES: No edema feet - Labs CBC & Chem 7: 12/21/23 05:26 12/24/23 05:49 Labs: Abnormal Lab Results - Last 24 Hours (Table) 12/24/23 Range/Units 05:49 Sodium 146 H (135-145) mmol/L Chloride 112 H (96-109) mmol/L Est GFR (CKD-EPI) 55 L (>=60) BUN/Creatinine Ratio 21.60 H (12.00-20.00) Ratio Calcium 8.6 L (8.7-10.3) mg/dL Microbiology - Last 24 Hours (Table) 12/19/23 05:44 Blood Culture - Final Blood Assessment and Plan (1) Urinary tract infection Current Visit: Yes Status: Acute Code(s): N39.0 - URINARY TRACT INFECTION, SITE NOT SPECIFIED SNOMED Code(s): 45442200 (2) Positive blood culture Current Visit: Yes Status: Acute Code(s): R78.81 - BACTEREMIA SNOMED Code(s): 803134701 Plan: 1patient with a positive blood culture Bacillus species more likely skin contamination as the patient has no clinical disease to go along with it, blood cultures has been repeated to document clearance of bacteremia and they have been negative so far no need for further workup for the positive blood culture 2-patient with E. coli urinary tract infection for the patient received adequate antibiotic therapy and no need for antibiotic on discharge Dictation was produced using [employer] dictation software. please excuse any grammatical, word or spelling errors. Time with Patient: Less than 30
[2023-12-24 15:44] VITALS: PULSE 74
== END 2023-12-24 15:42 | DRG 871 ==
LOC: EC 16:28 → 6NMEDSUR 19:52 → OBSVTOIN 21:55 → 6NMEDSUR 23:23
PROVIDERS: ADMIT Hospitalist; ATTEND Hospitalist
DX: A41.51 Sepsis due to Escherichia coli [E. coli] (principal); I50.33 Acute on chronic diastolic (congestive) heart failure; J96.21 Acute and chronic respiratory failure with hypoxia; J15.69 Pneumonia due to other Gram-negative bacteria; T83.518A Infection and inflammatory reaction due to other urinary catheter, initial encounter; I48.19 Other persistent atrial fibrillation; I13.0 Hypertensive heart and chronic kidney disease with heart failure and stage 1 through stage 4 chronic kidney disease, or unspecified chronic kidney disease; E87.1 Hypo-osmolality and hyponatremia; E78.5 Hyperlipidemia, unspecified; E03.9 Hypothyroidism, unspecified; Z79.890 Hormone replacement therapy; R33.8 Other retention of urine; R04.0 Epistaxis; I08.2 Rheumatic disorders of both aortic and tricuspid valves; Z66 Do not resuscitate; F41.9 Anxiety disorder, unspecified; I27.20 Pulmonary hypertension, unspecified; N18.30 Chronic kidney disease, stage 3 unspecified; Y84.6 Urinary catheterization as the cause of abnormal reaction of the patient, or of later complication, without mention of misadventure at the time of the procedure
CPT/HCPCS: 36415; 71045; 71046; 80048; 80053; 81001; 83735; 83880; 84145; 85025; 85027; 86140; 87040; 87077; 87086; 87186; 93005; 94640; 94760; 96365; 96375; 99285

== ENCOUNTER 2024-01-05 05:43 | Emergency (ER) | payer MEDICARE, BC ==
[2024-01-05 06:08] VITALS: RESP 18; TEMP 97.4
--- NOTE | 2024-01-05 06:19 | ED ---
ENT HPI - General Chief complaint: ENT Stated complaint: Nose Bleed Time Seen by Provider: 01/05/24 05:55 Source: patient, EMS, RN notes reviewed Mode of arrival: EMS Limitations: no limitations - History of Present Illness Initial comments: 88-year-old female [facility] with chief complaint of epistaxis. Patient states she has been having bleeding which she bleeds for 7 hours on and off the right side. She is on Xarelto. Patient states that she is actually and occasionally has nosebleeds. Patient denies any chest pain shortness of breath headache or dizziness. - Related Data Home Medications Medication Instructions Recorded Confirmed Acetaminophen Tab [Tylenol] 1,000 mg PO BID 12/01/23 12/14/23 Atorvastatin [Lipitor] 20 mg PO HS 12/01/23 12/14/23 Bumetanide [BUMEX] 2 mg PO DAILY 12/01/23 12/14/23 Citalopram Hydrobromide [CeleXA] 10 mg PO DAILY 12/01/23 12/14/23 Melatonin 1 mg PO HS 12/01/23 12/14/23 Metoprolol Tartrate [Lopressor] 100 mg PO BID 12/01/23 12/14/23 Potassium Chloride ER [K-Dur 10] 10 meq PO DAILY 12/01/23 12/14/23 Rivaroxaban [Xarelto] 15 mg PO HS 12/01/23 12/14/23 dilTIAZem HCL 60 mg PO Q8H 12/01/23 12/14/23 estradioL 10 mcg VAGINAL SUTH 12/01/23 12/14/23 Ammonium Lactate Lotion 1 applic TOPICAL HS 12/14/23 12/14/23 [Lac-Hydrin 12% Lotion] Cranberry 450mg 450 mg PO HS 12/14/23 12/14/23 Estradiol Cream [Estrace Cream 1 gm VAGINAL SUTH@2100 12/14/23 12/14/23 0.01%] Previous Rx's Medication Instructions Recorded ALPRAZolam [Xanax] 0.25 mg PO BID PRN #4 tab 12/24/23 Budesonide [Pulmicort] 0.5 mg INHALATION RT-BID ml 12/24/23 Diclofenac Sodium Gel [Voltaren 1% 2 gm TOPICAL QID gm 12/24/23 Gel] Tamsulosin [Flomax] 0.4 mg PO DAILY #0 cap 12/24/23 Allergies Allergy/AdvReac Type Severity Reaction Status Date / Time No Known Allergies Allergy Verified 01/05/24 05:57 Review of Systems ROS Statement: Those systems with pertinent positive or pertinent negative responses have been documented in the HPI. ROS Other: All systems not noted in ROS Statement are negative. Past Medical History Past Medical History: Heart Failure, Hypertension, Respiratory Disorder, Thyroid Disorder Additional Past Medical History / Comment(s): CHF, brain tumor, parathyroid History of Any Multi-Drug Resistant Organisms: None Reported Additional Past Surgical History / Comment(s): Parathiroid removed, brain tumor removed, Past Psychological History: No Psychological Hx Reported Smoking Status: Never smoker Past Alcohol Use History: None Reported Past Drug Use History: None Reported General Exam General appearance: alert, in no apparent distress Head exam: Present: atraumatic, normocephalic, normal inspection Eye exam: Present: normal appearance, PERRL, EOMI. Absent: scleral icterus, conjunctival injection, periorbital swelling ENT exam: Present: normal oropharynx, mucous membranes moist, other (Persistent epistaxis on the right). Absent: normal exam Neck exam: Present: normal inspection, full ROM. Absent: tenderness, meningismus, lymphadenopathy Respiratory exam: Present: normal lung sounds bilaterally. Absent: respiratory distress, wheezes, rales, rhonchi, stridor Cardiovascular Exam: Present: regular rate, normal rhythm, normal heart sounds. Absent: systolic murmur, diastolic murmur, rubs, gallop, clicks Course Vital Signs 01/05/24 05:51 Temperature 97.4 F L Pulse Rate 78 Respiratory 18 Rate Blood Pressure 119/85 O2 Sat by Pulse 96 Oximetry Procedures - Procedures Initial comment: Right nostril epistaxisRhino Rocket was used and placed with no complications anterior and posterior balloons were inflated to achieve hemostasis Medical Decision Making - Medical Decision Making Was pt. sent in by a medical professional or institution (, PA, DENTAL LABORATORY SUPERVISOR, urgent care, hospital, or penitentiary...) When possible be specific @ -group home Did you speak to anyone other than the patient for history (EMS, parent, family, police, friend...)? What history was obtained from this source @ -No Did you review nursing and triage notes (agree or disagree)? Why? @ -I reviewed and agree with nursing and triage notes Were old charts reviewed (outside hosp., previous admission, EMS record, old EKG, old radiological studies, urgent care reports/EKG's, penitentiary records)? Report findings @ -No old charts were reviewed Differential Diagnosis (chest pain, altered mental status, abdominal pain women, abdominal pain men, vaginal bleeding, weakness, fever, dyspnea, syncope, headache, dizziness, GI bleed, back pain, seizure, CVA, palpatations, mental hea lth, musculoskeletal)? @ -Epistaxis, hematoma EKG interpreted by me (3pts min.). @ -None X-rays interpreted by me (1pt min.). @ -None done CT interpreted by me (1pt min.). @ -None done U/S interpreted by me (1pt. min.). @ -None done What testing was considered but not performed or refused? (CT, X-rays, U/S, labs)? Why? @ -None What meds were considered but not given or refused? Why? @ -None Did you discuss the management of the patient with other professionals (professionals i.e. , PA, DENTAL LABORATORY SUPERVISOR, lab, RT, psych nurse, social studies teacher, e commerce web developer, teacher, information assurance officer, case liner)? Give summary @ -No Was smoking cessation discussed for >3mins.? @ -No Was critical care preformed (if so, how long)? @ -No Were there social determinants of health that impacted care today? How? (Homelessness, low income, unemployed, alcoholism, drug addiction, transportation, low edu. Level, literacy, decrease access to med. care, [facility], rehab)? @ -No Was there de-escalation of care discussed even if they declined (Discuss DNR or withdrawal of care, Hospice)? DNR status @ -No What co-morbidities impacted this encounter? (DM, HTN, Smoking, COPD, CAD, Cancer, CVA, ARF, Chemo, Hep., AIDS, mental health diagnosis, sleep apnea, morbid obesity)? @ -None Was patient admitted / discharged? Hospital course, mention meds given and route, prescriptions, significant lab abnormalities, going to OR and other pertinent info. @ -Discharge patient had a Rhino Rocket placed in right nostril bleeding has subsided. Patient is discharged in stable condition. Undiagnosed new problem with uncertain prognosis? @ -No Drug Therapy requiring intensive monitoring for toxicity (Heparin, Nitro, Insulin, Cardizem)? @ -No Were any procedures done? @ -No Diagnosis/symptom? @ -Epistaxis Acute, or Chronic, or Acute on Chronic? @ -Acute Uncomplicated (without systemic symptoms) or Complicated (systemic symptoms)? @ -Uncomplicate Side effects of treatment? @ -No Exacerbation, Progression, or Severe Exacerbation? @ -No Poses a threat to life or bodily function? How? (Chest pain, [place], [place], pneumonia, PE, COPD, DKA, ARF, appy, cholecystitis, CVA, Diverticulitis, Homicidal, Suicidal, threat to staff... and all critical care pts) @ -No Disposition Clinical Impression: Epistaxis Disposition: HOME SELF-CARE Condition: Stable Instructions (If sedation given, give patient instructions): Nosebleed (ED) Additional Instructions: Please return to the Emergency Department if symptoms worsen or any other concerns. Is patient prescribed a controlled substance at d/c from ED?: No Referrals: Shane Lombardi MD [Primary Care Provider] - 1-2 days Fahad Hernandez DO [Doctor of Osteopathic Medicine] - 1-2 days Time of Disposition: 07:10
[2024-01-05 07:24] VITALS: BP 105/82; PULSE 80
== END 2024-01-05 08:37 | disposition home or self-care (01) ==
LOC: EC 05:43
DX: R04.0 Epistaxis (principal)
CPT/HCPCS: 30903; 99283

== ENCOUNTER 2024-01-06 03:48 | Inpatient (IN) | payer MEDICARE, BC ==
--- NOTE | 2024-01-06 04:01 | ED ---
General Adult HPI - General Source: EMS Mode of arrival: EMS <Vy Sales - Last Filed: 01/06/24 04:34> <Larry Kennedy - Last Filed: 01/06/24 08:07> - General Chief complaint: Recheck/Abnormal Lab/Rx Stated complaint: Weakness Time Seen by Provider: 01/06/24 03:54 - History of Present Illness Initial comments: Wanda is a pleasantly confused 88yo sent to the ER today for evaluation of tremor and generalized weakness. Patient was seen earlier today for nosebleed and discharged back to rehab facility with nasal packing in place. She returns today with no nasal packing in place. apparently she has worsening tremor which was concerning to staff. (Vy Sales) - Related Data Home Medications Medication Instructions Recorded Confirmed Acetaminophen Tab [Tylenol] 1,000 mg PO BID 12/01/23 12/14/23 Atorvastatin [Lipitor] 20 mg PO HS 12/01/23 12/14/23 Bumetanide [BUMEX] 2 mg PO DAILY 12/01/23 12/14/23 Citalopram Hydrobromide [CeleXA] 10 mg PO DAILY 12/01/23 12/14/23 Melatonin 1 mg PO HS 12/01/23 12/14/23 Metoprolol Tartrate [Lopressor] 100 mg PO BID 12/01/23 12/14/23 Potassium Chloride ER [K-Dur 10] 10 meq PO DAILY 12/01/23 12/14/23 Rivaroxaban [Xarelto] 15 mg PO HS 12/01/23 12/14/23 dilTIAZem HCL 60 mg PO Q8H 12/01/23 12/14/23 estradioL 10 mcg VAGINAL SUTH 12/01/23 12/14/23 Ammonium Lactate Lotion 1 applic TOPICAL HS 12/14/23 12/14/23 [Lac-Hydrin 12% Lotion] Cranberry 450mg 450 mg PO HS 12/14/23 12/14/23 Estradiol Cream [Estrace Cream 1 gm VAGINAL SUTH@2100 12/14/23 12/14/23 0.01%] Previous Rx's Medication Instructions Recorded ALPRAZolam [Xanax] 0.25 mg PO BID PRN #4 tab 12/24/23 Budesonide [Pulmicort] 0.5 mg INHALATION RT-BID ml 12/24/23 Diclofenac Sodium Gel [Voltaren 1% 2 gm TOPICAL QID gm 12/24/23 Gel] Tamsulosin [Flomax] 0.4 mg PO DAILY #0 cap 12/24/23 Allergies Allergy/AdvReac Type Severity Reaction Status Date / Time No Known Allergies Allergy Verified 01/06/24 04:00 Review of Systems ROS Other: All systems not noted in ROS Statement are negative. <Vy Sales - Last Filed: 01/06/24 04:34> ROS Other: All systems not noted in ROS Statement are negative. <Larry Kennedy - Last Filed: 01/06/24 08:07> ROS Statement: Those systems with pertinent positive or pertinent negative responses have been documented in the HPI. Past Medical History Past Medical History: Heart Failure, Hypertension, Respiratory Disorder, Thyroid Disorder Additional Past Medical History / Comment(s): CHF, brain tumor, parathyroid History of Any Multi-Drug Resistant Organisms: None Reported Additional Past Surgical History / Comment(s): Parathiroid removed, brain tumor removed, Past Psychological History: No Psychological Hx Reported Smoking Status: Never smoker Past Alcohol Use History: None Reported Past Drug Use History: None Reported <Vy Sales - Last Filed: 01/06/24 04:34> General Exam <Vy Sales - Last Filed: 01/06/24 04:34> - General Exam Comments Initial Comments: Physical Exam GENERAL: Chronically ill appearing HENT: Atraumatic. Dried blood in bilateral nares EYES: PERRL, EOMI PULMONARY: Unlabored respirations. CARDIOVASCULAR: Regular rate, irregular ABDOMEN: Non-distended SKIN: No rashes or bruising : Deferred NEUROLOGIC: Alert and oriented to self MUSCULOSKELETAL: Moving all extremities with no apparent injury (Vy Sales) Course Vital Signs 01/06/24 01/06/24 01/06/24 03:51 04:21 05:04 Temperature 97.6 F 98.6 F Pulse Rate 95 95 87 Respiratory 18 19 Rate Blood Pressure 115/68 119/79 O2 Sat by Pulse 97 90 L Oximetry 01/06/24 01/06/24 05:13 05:27 Temperature 98.7 F Pulse Rate 92 83 Respiratory 19 Rate Blood Pressure 105/78 O2 Sat by Pulse 99 Oximetry EKG Findings - EKG Comments: EKG Findings:: EKG interpreted by me, EKG obtained due to complaint of generalized weakness, EKG obtained at 3:52 AM rate is 95 rhythm is atrial fibrillation there is significant motion artifact noted but no acute ST elevations or depressions no evidence of acute ischemia or infarction. A-fib is not new. <Vy Sales - Last Filed: 01/06/24 04:34> Medical Decision Making - Lab Data Result diagrams: 01/06/24 04:35 01/06/24 04:35 <Larry Kennedy - Last Filed: 01/06/24 08:07> - Medical Decision Making Was pt. sent in by a medical professional or institution (, PA, PROFESSIONAL BUILDER, urgent care, hospital, or [place] [facility] facility...) When possible be specific @ -Patient was sent from nursing Did you speak to anyone other than the patient for history (EMS, parent, family, police, friend...)? What history was obtained from this source @ -No Did you review nursing and triage notes (agree or disagree)? Why? @ -I reviewed and agree with nursing and triage notes Were old charts reviewed (outside hosp., previous admission, EMS record, old EKG, old radiological studies, urgent care reports/EKG's, [place] [facility] [place] records)? Report findings @ -care home chart states patient complaining of tremors Differential Diagnosis (chest pain, altered mental status, abdominal pain women, abdominal pain men, vaginal bleeding, weakness, fever, dyspnea, syncope, headache, dizziness, GI bleed, back pain, seizure, CVA, palpatations, mental health, musculoskeletal)? @ -Differential Weakness: Hypoglycemia, shock, sepsis, hyponatremia, anemia, infection, [place], ETOH, adverse medicine reaction, overdose, stroke, this is not meant to be an all-inclusive list. EKG interpreted by me (3pts min.). @ -As above X-rays interpreted by me (1pt min.). @ -None done CT interpreted by me (1pt min.). @ -CT brain shows old infarct U/S interpreted by me (1pt. min.). @ -None done What testing was considered but not performed or refused? (CT, X-rays, U/S, labs)? Why? @ -None What meds were considered but not given or refused? Why? @ -None Did you discuss the management of the patient with other professionals (kelly cerda i.e. , PA, PROFESSIONAL BUILDER, lab, RT, psych nurse, sexual assault social worker, jelly maker, teacher, legal compliance officer, casework manager)? Give summary @ -Case discussed with Dr. Tamayo who is familiar with this patient and will be admitted to him. Was smoking cessation discussed for >3mins.? @ -No Was critical care preformed (if so, how long)? @ -No Were there social determinants of health that impacted care today? How? (Homelessness, low income, unemployed, alcoholism, drug addiction, transportation, low edu. Level, literacy, decrease access to med. care, [facility], rehab)? @ -No Was there de-escalation of care discussed even if they declined (Discuss DNR or withdrawal of care, Hospice)? DNR status @ -No What co-morbidities impacted this encounter? (DM, HTN, Smoking, COPD, CAD, Cancer, CVA, ARF, Chemo, Hep., AIDS, mental health diagnosis, sleep apnea, morbid obesity)? @ -None Was patient admitted / discharged? Hospital course, mention meds given and route, prescriptions, significant lab abnormalities, going to OR and other pertinent info. @ -Patient presents with tremors. Patient does have acute kidney injury. Patient will be admitted with IV fluids. Admission orders written. Undiagnosed new problem with uncertain prognosis? @ -No Drug Therapy requiring intensive monitoring for toxicity (Heparin, Nitro, Insulin, Cardizem)? @ -No Were any procedures done? @ -No Diagnosis/symptom? @ -Acute kidney injury Acute, or Chronic, or Acute on Chronic? @ -Acute Uncomplicated (without systemic symptoms) or Complicated (systemic symptoms)? @ -Default Side effects of treatment? @ -No Exacerbation, Progression, or Severe Exacerbation? @ -No Poses a threat to life or bodily function? How? (Chest pain, [place], [place], pneumonia, PE, COPD, DKA, ARF, appy, cholecystitis, CVA, Diverticulitis, Homicidal, Suicid al, threat to staff... and all critical care pts) @ -No (Larry Kennedy) - Lab Data Lab Results 01/06/24 01/06/24 01/06/24 Range/Units 04:35 04:35 07:36 WBC 10.1 (3.8-10.6) k/uL RBC 3.17 L (3.80-5.40) m/uL Hgb 9.7 L D (11.4-16.0) gm/dL Hct 31.0 L (34.0-46.0) % MCV 97.9 (80.0-100.0) fL MCH 30.7 (25.0-35.0) pg MCHC 31.4 (31.0-37.0) g/dL RDW 15.7 H (11.5-15.5) % Plt Count 273 (150-450) k/uL MPV 8.7 Neutrophils % 73 % Lymphocytes % 13 % Monocytes % 9 % Eosinophils % 1 % Basophils % 1 % Neutrophils # 7.4 (1.3-7.7) k/uL Lymphocytes # 1.3 (1.0-4.8) k/uL Monocytes # 0.9 (0-1.0) k/uL Eosinophils # 0.1 (0-0.7) k/uL Basophils # 0.1 (0-0.2) k/uL Hypochromasia Marked Macrocytosis Slight Sodium 142 (137-145) mmol/L Potassium 4.3 (3.5-5.1) mmol/L Chloride 108 H (98-107) mmol/L Carbon Dioxide 20 L (22-30) mmol/L Anion Gap 14 mmol/L BUN 59 H (7-17) mg/dL Creatinine 1.78 H (0.52-1.04) mg/dL Est GFR (CKD-EPI)AfAm 29 (>60 ml/min/1.73 sqM) Est GFR (CKD-EPI)NonAf 25 (>60 ml/min/1.73 sqM) Glucose 110 H (74-99) mg/dL Calcium 8.9 (8.4-10.2) mg/dL Magnesium 2.2 (1.6-2.3) mg/dL Total Bilirubin 0.8 (0.2-1.3) mg/dL AST 20 (14-36) U/L ALT 16 (4-34) U/L Alkaline Phosphatase 88 (38-126) U/L Total Protein 6.1 L (6.3-8.2) g/dL Albumin 3.4 L (3.5-5.0) g/dL Urine Color Colorless Urine Appearance Clear (Clear) Urine pH 5.0 (5.0-8.0) Ur Specific [place] 1.016 (1.001-1.035) Urine Protein Negative (Negative) Urine Glucose (UA) Negative (Negative) Urine Ketones Negative (Negative) Urine Blood Negative (Negative) Urine Nitrite Negative (Negative) Urine Bilirubin Negative (Negative) Urine Urobilinogen <2.0 (<2.0) mg/dL Ur Leukocyte Esterase Negative (Negative) Disposition <Vy aSles - Last Filed: 01/06/24 04:34> Is patient prescribed a controlled substance at d/c from ED?: No Time of Disposition: 08:06 <Larry Kennedy - Last Filed: 01/06/24 08:07> Clinical Impression: Acute kidney injury Disposition: ADMITTED IP TO THIS HOSP Referrals: Shane Lombardi MD [Primary Care Provider] - 1-2 days
[2024-01-06 04:46] LABS: Basophils # (A) 0.1 k/uL (0-0.2); Basophils % (A) 1 %; Eosinophils # (A) 0.1 k/uL (0-0.7); Eosinophils % (A) 1 %; Hypochromasia Marked; Lymphocytes # (A) 1.3 k/uL (1.0-4.8); Lymphocytes % (A) 13 %; MCH 30.7 pg (25.0-35.0); MCHC 31.4 g/dL (31.0-37.0); MCV 97.9 fL (80.0-100.0); Macrocytosis Slight; Mean Platelet Volume 8.7; Monocytes # (A) 0.9 k/uL (0-1.0); Monocytes % (A) 9 %; Neutrophils # (A) 7.4 k/uL (1.3-7.7); Neutrophils % (A) 73 %; Platelet Count 273 k/uL (150-450); RBC 3.17 m/uL (3.80-5.40); RDW 15.7 % (11.5-15.5); WBC 10.1 k/uL (3.8-10.6)
[2024-01-06 05:00] LABS: ALT 16 U/L (4-34); AST 20 U/L (14-36); African American GFR (CKD) 29 (>60 ml/min/1.73 sqM); Albumin 3.4 g/dL (3.5-5.0); Alkaline Phosphatase 88 U/L (38-126); Anion Gap 14 mmol/L; Blood Urea Nitrogen 59 mg/dL (7-17); Calcium 8.9 mg/dL (8.4-10.2); Carbon Dioxide 20 mmol/L (22-30); Chloride 108 mmol/L (98-107); Glucose 110 mg/dL (74-99); Magnesium 2.2 mg/dL (1.6-2.3); Non-African American GFR(CKD) 25 (>60 ml/min/1.73 sqM); Potassium 4.3 mmol/L (3.5-5.1); Sodium 142 mmol/L (137-145); Total Bilirubin 0.8 mg/dL (0.2-1.3); Total Protein 6.1 g/dL (6.3-8.2)
[2024-01-06] MEDS: IPRATROPIUM-ALBUTEROL 3 ML NEB INHALATION STA (05:04)
[2024-01-06 05:05] LABS: HGB 9.7 gm/dL (11.4-16.0)
[2024-01-06] MEDS: SODIUM CHLORIDE 0.9% 500 ML 500 ML IV ONE (05:19)
[2024-01-06] MEDS: LORazepam 2 MG/ML INJ IV STA ×3 (06:43→11:30)
--- NOTE | 2024-01-06 07:13 | CT ---
EXAMINATION TYPE: CT brain wo con DATE OF EXAM: 01/06/2024 COMPARISON: 12/11/2010 INDICATION: TREMORS DLP: 1168.4 mGycm, Automated exposure control for dose reduction was used. CONTRAST: None CT of the brain is performed utilizing 3 mm thick sections through the posterior fossa and 3 mm thick sections through the remaining calvarium. Study is performed within 24 hours of arrival to the hosp ital. No abnormal hyperdensity is present to suggest an acute intracranial hemorrhage. No mass lesion is evident. No acute infarcts are evident. 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 Sca ttered periventricular white matter hypodensity is present, likely on the basis of chronic white isch emic changes. Findings are stable from comparison. Ventricles and sulci are appropriate for the patient age. Hyperostosis frontalis internus is present , normal variant. Prior craniotomy is in the occipital region Paranasal sinuses and mastoid air cells within the [id number] are clear. IMPRESSION: 1. 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 2. Chronic appearing periventricular white matter ischemic-type changes, stable. 3. No acute intracranial process radiographically apparent. Follow-up studies can be performed as cli nically indicated
[2024-01-06 07:49] LABS: Appearance,Urine Clear (Clear); Bilirubin,Urine Negative (Negative); Blood,Urine Negative (Negative); Color,Urine Colorless; Glucose,Urine (UA) Negative (Negative); Ketones,Urine Negative (Negative); Leukocyte Esterase,Urine Negative (Negative); Nitrite,Urine Negative (Negative); Protein,Urine Negative (Negative); Specific Gravity,Urine 1.016 (1.001-1.035); Urobilinogen,Urine <2.0 mg/dL (<2.0)
[2024-01-06] MEDS ORDERED: NALOXONE 0.4 MG/ML 1 ML VIAL IV PRN (08:07)
[2024-01-06] MEDS ORDERED: LORazepam 0.5 MG TAB PO PRN (08:07)
[2024-01-06] MEDS: SODIUM CHLORIDE 0.9% 1,000 ML IV SCH (09:03)
[2024-01-06] MEDS: BUDESONIDE 0.5 MG/2 ML NEBU INHALATION SCH (10:59)
[2024-01-06] MEDS: POTASSIUM CHLORIDE ER 10 MEQ TAB.ER.PRT PO SCH (11:00)
[2024-01-06] MEDS: METOPROLOL TARTRATE 50 MG TAB PO SCH (11:00)
[2024-01-06] MEDS: ACETAMINOPHEN TAB 500 MG TAB PO SCH (11:00)
[2024-01-06] MEDS: CITALOPRAM HYDROBROMIDE 10 MG TAB PO SCH (11:00)
[2024-01-06] MEDS: TAMSULOSIN 0.4 MG CAP.ER.24H PO SCH (11:00)
[2024-01-06] MEDS: DILTIAZEM ORAL 60 MG TAB PO SCH (11:00)
[2024-01-06] MEDS: DEXTROSE 5%-0.45% NACL 1,000 ML IV SCH (12:11)
--- NOTE | 2024-01-06 12:57 | XR ---
EXAMINATION TYPE: XR chest 1V portable DATE OF EXAM: 01/06/2024 COMPARISON: 12/23/2023 INDICATION: Short of breath TECHNIQUE: Frontal and lateral views of the chest are obtained. FINDINGS: The heart size is enlarged. The pulmonary vasculature is normal. The lungs are clear. IMPRESSION: 1. Cardiomegaly
[2024-01-06 13:01] LABS: ABG HCO3 21 mmol/L (21-25); ABG PCO2 33 mmHg (35-45); ABG PO2 100 mmHg (83-108); ABG TCO2 22 mmol/L (19-24); Allen Test Performed? Yes
[2024-01-06 13:05] LABS: ABG Oxygen Saturation 97.8 % (94-97)
[2024-01-06] MEDS: DICLOFENAC SODIUM GEL 100 GM TUBE TOPICAL SCH (13:17)
--- NOTE | 2024-01-06 15:28 | P.HPIM ---
History of Present Illness H&P Date: 01/06/24 Chief Complaint: Altered mentation This is a 88-year-old patient, follows with Dr. Sera Johnson. 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 Was treated for CHF exacerbation EF 50 to 55%, bout of epistaxis, has atrial fibrillation, secondary pulm hypertension. She was discharged to [facility] on the [place] for rehab Readmitted from December 13 through December 23.: Sepsis, UTI, CHF exacerbation,- discharge back to rehab He now presents to the ER again. Caregiver at the bedside who knows the patient from before. 5 days ago patient was at L level. That is on Thursday. On Thursday she presented to the ER with a nosebleed and was sent back to rehab. Yesterday patient had gone to follow-up appointments but was more confused. EMS was called as patient becoming more confused. Having generalized tremors. Patient is rather restless. She did tell the EMS that she was having tremors for over a month every night. In the ER patient was more delirious. She is a DNR. Review of systems: Cannot be obtained patient is rather delirious. Restless. Social history: currently at [facility] on the [facility]. Home oxygen 2 L. Does not smoke. No alcohol. Physical examination: VITAL SIGNS: 98.7, 120, 24, 107 x 93, 99% on 3 L GENERAL: Restless, moving about EYES: Pupils equal. Conjunctiva teja l. HEENT: External appearance of nose and ears normal, oral cavity-dry mucous membrane NECK: JVD unable to assess; masses not palpable. HEART: First and second heart sounds are normal; edema present. LUNGS: Respiratory rate increased; some basal crackles n. ABDOMEN: Soft, nontender, liver spleen not palpable, no masses palpable. PSYCH: Patient is delirious MUSCULOSKELETAL:No Clubbing/cyanosis;muscles-grossly intact. OA NEUROLOGICAL: Cranial nerves grossly intact; no facial asymmetry, . Blind in the left eye. Jerking of all the limbs. Restless. LYMPHATICS: No lymph node palpable neck and axilla INVESTIGATIONS, reviewed in the clinical context: January 06, 2024: White count 10.1 hemoglobin 9.7 platelets 273 sodium 142 potassium 4.3 BUN 59 creatinine 1.78 UA: Negative EKG tracing personally reviewed by me-atrial fibrillation. Rate [address]-T wave changes. Previous investigation 2D echocardiogram [December 2023]: EF 50-55%. Severe pulmonary hypertension. Creatinine 1.05 on December 24, 1.December 23 Assessment and plan: -Acute delirium with metabolic encephalopathy from acute kidney injury and electrolyte abnormalities - chronic congestive heart failure from diastolic EF 50 to 55%: Hold diuretics for now -Jerking movements of the limbs, restlessness, could be from underlying CIARA electrolyte abnormalities. Possibly myoclonic IV fluids. Consult neurology. -Acute kidney injury combination of ATN and prerenal Stop diuretics. D5.45. 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 Lopressor 100 mg twice daily. Xarelto -Chronic urinary bladder outflow obstruction Maldonado catheter -Hyperlipidemia Lipitor -Chronic kidney disease stage III likely nephrosclerosis Baseline creatinine 1.0 -Essential hypertension Lopressor. Cardizem. -DNR Consult pulmonary, neurology, cardiology. Care was discussed with the patient's primary caregiver at the bedside. She did talk to patient's daughter on the phone while I was there. Prognosis guarded. Given the complexity and severity of patient's condition expect the patient to be in the hospital at least for 2 overnights Past Medical History Past Medical History: Heart Failure, Hypertension, Respiratory Disorder, Thyroid Disorder Additional Past Medical History / Comment(s): CHF, brain tumor, parathyroid History of Any Multi-Drug Resistant Organisms: None Reported Additional Past Surgical History / Comment(s): Parathiroid removed, brain tumor removed, Past Psychological History: No Psychological Hx Reported Smoking Status: Never smoker Past Alcohol Use History: None Reported Past Drug Use History: None Reported Medications and Allergies Home Medications Medication Instructions Recorded Confirmed Type Acetaminophen Tab [Tylenol] 1,000 mg PO BID 12/01/23 01/06/24 History Atorvastatin [Lipitor] 20 mg PO HS 12/01/23 01/06/24 History Citalopram Hydrobromide [CeleXA] 10 mg PO DAILY 12/01/23 01/06/24 History Melatonin 1 mg PO HS 12/01/23 01/06/24 History Metoprolol Tartrate [Lopressor] 100 mg PO BID 12/01/23 01/06/24 History Potassium Chloride ER [K-Dur 10] 10 meq PO DAILY 12/01/23 01/06/24 History Rivaroxaban [Xarelto] 15 mg PO HS 12/01/23 01/06/24 History dilTIAZem HCL 60 mg PO Q8H 12/01/23 01/06/24 History Ammonium Lactate Lotion 1 applic TOPICAL HS 12/14/23 01/06/24 History [Lac-Hydrin 12% Lotion] Cranberry 450mg 450 mg PO HS 12/14/23 01/06/24 History Estradiol Cream [Estrace Cream 1 gm VAGINAL SUTH@2100 12/14/23 01/06/24 History 0.01%] ALPRAZolam [Xanax] 0.25 mg PO BID PRN #4 tab 12/24/23 01/06/24 Rx Budesonide [Pulmicort] 0.5 mg INHALATION RT-BID ml 12/24/23 01/06/24 Rx Tamsulosin [Flomax] 0.4 mg PO DAILY #0 cap 12/24/23 01/06/24 Rx Bumetanide [BUMEX] 2 mg PO DAILY 01/06/24 01/06/24 History Diclofenac Sodium Gel [Voltaren 1% 1 applic TOPICAL QID 01/06/24 01/06/24 History Gel] Allergies Allergy/AdvReac Type Severity Reaction Status Date / Time No Known Allergies Allergy Verified 01/06/24 09:17 Physical Exam Vitals: Vital Signs Temp Pulse Resp BP Pulse Ox 01/06/24 05:27 98.7 F 83 19 105/78 99 01/06/24 05:13 92 01/06/24 05:04 87 01/06/24 04:21 98.6 F 95 19 119/79 90 L 01/06/24 03:51 97.6 F 95 18 115/68 97 Intake and Output 01/05/24 01/06/24 01/06/24 22:59 06:59 14:59 Output Total 100 Balance -100 Output: Urine 100 Other: Weight 87.271 kg Results CBC & Chem 7: 01/06/24 04:35 01/06/24 04:35 Labs: Abnormal Lab Results - Last 24 Hours (Table) 01/06/24 01/06/24 Range/Units 04:35 04:35 RBC 3.17 L (3.80-5.40) m/uL Hgb 9.7 L D (11.4-16.0) gm/dL Hct 31.0 L (34.0-46.0) % RDW 15.7 H (11.5-15.5) % Chloride 108 H (98-107) mmol/L Carbon Dioxide 20 L (22-30) mmol/L BUN 59 H (7-17) mg/dL Creatinine 1.78 H (0.52-1.04) mg/dL Glucose 110 H (74-99) mg/dL Total Protein 6.1 L (6.3-8.2) g/dL Albumin 3.4 L (3.5-5.0) g/dL
[2024-01-06] MEDS: AMMONIUM LACTATE 12% LOTION 225 GM BTL TOPICAL SCH (21:09)
[2024-01-06] MEDS: ATORVASTATIN 20 MG TAB PO SCH (21:43)
[2024-01-06] MEDS: RIVAROXABAN 15 MG TAB PO SCH (21:43)
[2024-01-06] MEDS: MELATONIN 1 MG TAB PO SCH (21:43)
[2024-01-07] MEDS: TAMSULOSIN 0.4 MG CAP.ER.24H PO SCH (00:18)
[2024-01-07] MEDS: DILTIAZEM ORAL 60 MG TAB PO SCH (00:18)
--- NOTE | 2024-01-07 03:18 | P.CNPUL ---
History of Present Illness Consult date: 01/07/24 Requesting physician: Lawrence Tamayo Reason for consult: hypoxemia Chief complaint: Worsening mental status History of present illness: Patient is an 88-year-old white female with past medical history significant for diastolic heart failure, pulmonary hypertension, systemic hypertension, A-fib a nticoagulated chronically on Xarelto, hypothyroidism, brain tumor with previous resection. She is currently confused and unable to provide any meaningful information. After reviewing her medical records, patient did have a recent hospitalization 12/14/2023 through 12/24/2023 for acute urinary tract infection and exacerbation of diastolic congestive heart failure. Patient was ultimately discharged to [facility] rehab facility. She did return to the emergency room 01/05/24 for epistaxis, patient was nasally packed and sent back to [facility]. Patient was then sent back to the emergency room the next day. She reportedly had been more altered, with generalized weakness, and had a generalized tremor. I am unsure of the patient's baseline mentation. 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 There is chronic appearing periventricular white matter ischemic type changes. No acute intracranial process identified. She was also noted to be hypoxic, and placed on supplemental oxygen. Chest x-ray taken on admission showed cardiomegaly. Read as no acute cardiopulmonary process, however, there may be some is interstitial edema. NT proBNP was elevated at 6670. Recent echocardiogram done on previous admission estimated left ventricular ejection fraction of 50 to 55% with severe pulmonary hypertension and an RVSP of 64 mmHg. Patient did have a ABG which was done on 5 L nasal cannula and had a PaO2 of 100, pCO2 of 33, pH of 7.4. CBC on arrival: WBC count 10.1, hemoglobin 9.7, hematocrit 31, platelets 273. BMP on arrival: Sodium 142, potassium 4.3, chloride 108, serum bicarb 20, BUN 59, creatinine 1.78, glucose 110. Urinalysis done this admission not concerning for UTI. Patient has had some urinary retention noted previously and this admission by the nurse. Possible postobstructive uropathy. She has been taking Flomax. Patient is currently lying in bed, disheveled, not providing any meaningful information to my questions. She is oriented to self only. She does have a resting tremor. Current heart rhythm appears to be atrial fibrillation with rapid ventricular rate. She is anticoagulated on Xarelto. She does have presumptive dried blood in her oral cavity. No further active epistaxis. Afebrile. Vital signs are stable. Review of Systems ROS unobtainable: due to mental status Past Medical History Past Medical History: Heart Failure, Hypertension, Respiratory Disorder, Thyroid Disorder Additional Past Medical History / Comment(s): CHF, brain tumor, parathyroid History of Any Multi-Drug Resistant Organisms: None Reported Additional Past Surgical History / Comment(s): Parathiroid removed, brain tumor removed, Past Psychological History: No Psychological Hx Reported Smoking Status: Never smoker Past Alcohol Use History: None Reported Past Drug Use History: None Reported Medications and Allergies Home Medications Medication Instructions Recorded Confirmed Type Acetaminophen Tab [Tylenol] 1,000 mg PO BID 12/01/23 01/06/24 History Atorvastatin [Lipitor] 20 mg PO HS 12/01/23 01/06/24 History Citalopram Hydrobromide [CeleXA] 10 mg PO DAILY 12/01/23 01/06/24 History Melatonin 1 mg PO HS 12/01/23 01/06/24 History Metoprolol Tartrate [Lopressor] 100 mg PO BID 12/01/23 01/06/24 History Potassium Chloride ER [K-Dur 10] 10 meq PO DAILY 12/01/23 01/06/24 History Rivaroxaban [Xarelto] 15 mg PO HS 12/01/23 01/06/24 History dilTIAZem HCL 60 mg PO Q8H 12/01/23 01/06/24 History Ammonium Lactate Lotion 1 applic TOPICAL HS 12/14/23 01/06/24 History [Lac-Hydrin 12% Lotion] Cranberry 450mg 450 mg PO HS 12/14/23 01/06/24 History Estradiol Cream [Estrace Cream 1 gm VAGINAL SUTH@2100 12/14/23 01/06/24 History 0.01%] ALPRAZolam [Xanax] 0.25 mg PO BID PRN #4 tab 12/24/23 01/06/24 Rx Budesonide [Pulmicort] 0.5 mg INHALATION RT-BID ml 12/24/23 01/06/24 Rx Tamsulosin [Flomax] 0.4 mg PO DAILY #0 cap 12/24/23 01/06/24 Rx Bumetanide [BUMEX] 2 mg PO DAILY 01/06/24 01/06/24 History Diclofenac Sodium Gel [Voltaren 1% 1 applic TOPICAL QID 01/06/24 01/06/24 History Gel] Allergies Allergy/AdvReac Type Severity Reaction Status Date / Time No Known Allergies Allergy Verified 01/06/24 09:17 Physical Exam Vitals: Vital Signs Temp Pulse Pulse Resp BP BP Pulse Ox 01/07/24 01:15 63 14 01/06/24 21:43 63 14 01/06/24 19:40 98.2 F 63 14 136/75 95 01/06/24 16:53 98 F 93 18 122/80 93 L 01/06/24 11:24 125 H 22 102/74 93 L 01/06/24 11:10 120 H 01/06/24 11:00 98 22 80/69 76 L 01/06/24 10:59 109 H 01/06/24 10:00 121 H 24 107/93 01/06/24 09:00 123 H 22 99/88 01/06/24 08:00 105 H 22 01/06/24 05:27 98.7 F 83 19 105/78 99 01/06/24 05:13 92 01/06/24 05:04 87 01/06/24 04:21 98.6 F 95 19 119/79 90 L 01/06/24 03:51 97.6 F 95 18 115/68 97 Intake and Output 01/06/24 01/06/24 01/07/24 14:59 22:59 06:59 Output Total 100 608 400 Balance -100 -608 -400 Output: Urine 100 400 Straight 400 Post Void Residual 608 Other: Voiding Method Diaper Diaper Incontinent Incontinent # Voids 0 Weight 87.271 kg GENERAL EXAM: Alert, pleasantly confused, 88-year-old white female, disheveled, in no apparent distress. HEAD: Normocephalic and atraumatic EYES: Normal reaction of pupils, equal size. NOSE: Dried blood. No active epistaxis THROAT: No erythema or exudates. Dried blood in the oral cavity. NECK: No masses, no JVD. CHEST: No chest wall deformity. LUNGS: Equal air entry with diminished lung sounds bilaterally. no crackles, wheeze, rhonchi or dullness. On 5 L/min nasal cannula. No conversational dyspnea or accessory muscle use.. CVS: S1 and S2 normal with no audible murmur, irregular rhythm. No extra heart sounds ABDOMEN: No hepatosplenomegaly, active bowel sounds, no guarding or rigidity. SPINE: No scoliosis or deformity SKIN: No rashes. Diffuse seborrheic keratosis CENTRAL NERVOUS SYSTEM: Neurological exam limited by patient participation. Pupils are equal and reactive to light. No obvious facial droop. No obvious focal deficits. There is a resting generalized tremor. EXTREMITIES: There is no peripheral edema, clubbing, or cyanosis. Peripheral pulses are intact. Results - Laboratory Findings CBC and BMP: 01/06/24 04:35 01/06/24 04:35 ABG ABG pH 7.40 (7.35-7.45) 01/06/24 12:58 ABG pCO2 33 mmHg (35-45) L 01/06/24 12:58 ABG pO2 100 mmHg (83-108) 01/06/24 12:58 ABG O2 Saturation 97.8 % (94-97) H 01/06/24 12:58 Abnormal lab findings: Abnormal Labs 01/06/24 01/06/24 01/06/24 04:35 04:35 12:58 RBC 3.17 L Hgb 9.7 L D Hct 31.0 L RDW 15.7 H ABG pCO2 33 L ABG O2 Saturation 97.8 H Chloride 108 H Carbon Dioxide 20 L BUN 59 H Creatinine 1.78 H Glucose 110 H Total Protein 6.1 L Albumin 3.4 L - Diagnostic Findings Chest x-ray: image reviewed Assessment and Plan Assessment: Acute hypoxemic respiratory failure, possible exacerbation of chronic diastolic congestive heart failure. Chest x-ray taken on admission showed cardiomegaly. Read as no acute cardiopulmonary process, however, there may be some is interstitial edema. NT proBNP was elevated at 6670. Recent echocardiogram done on previous admission estimated left ventricular ejection fraction of 50 to 55% with evidence of severe pulmonary hypertension and an RVSP of 64 mmHg. 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 There is chronic appearing periventricular white matter ischemic type changes. No acute intracranial process identified. Resting tremor Epistaxis Normocytic normochromic anemia History of hypothyroidism History of brain tumor with previous resection Obesity, with a BMI of 34.1 kg/m Plan: Patient's medications, labs, chest x-ray reviewed Continue supplemental oxygen Continue home Bumex Patient was straight cathed per urinary retention protocol, indwelling urinary catheter will be inserted if continued retention Cardiac medications have been resumed. We will continue to follow I have personally seen and examined the patient, performed the documentation and the assessment and plan as written. Number of minutes spent on the visit:20 3. Time with Patient: Greater than 30
[2024-01-07 09:04] LABS: Basophils # (A) 0.07 X 10*3/uL (0.00-0.10); Basophils % (A) 0.6 %; Eosinophils # (A) 0.14 X 10*3/uL (0.04-0.35); Eosinophils % (A) 1.3 %; HCT 30.8 % (37.2-46.3); HGB 9.1 g/dL (12.0-15.0); Lymphocytes # (A) 0.88 X 10*3/uL (0.90-5.00); Lymphocytes % (A) 8.2 %; MCH 29.6 pg (27.0-32.0); MCHC 29.5 g/dL (32.0-37.0); MCV 100.3 FL (80.0-97.0); Mean Platelet Volume 10.8 FL (9.5-12.2); Monocytes # (A) 1.14 X 10*3/uL (0.20-1.00); Monocytes % (A) 10.6 %; NRBC Per 100 WBC 0.06 X 10*3/uL (0.00-0.01); Neutrophils % (A) 78.9 %; Platelet Count 257 X 10*3/uL (140-440); RBC 3.07 X 10*6/uL (4.10-5.20); RDW 15.9 % (11.5-14.5); WBC 10.77 X 10*3/uL (4.50-10.00)
[2024-01-07] MEDS: BUMETANIDE 1 MG TAB PO SCH (09:17)
[2024-01-07 09:32] LABS: Blood Urea Nitrogen 47.4 mg/dL (9.0-27.0); Calcium 8.7 mg/dL (8.7-10.3); Carbon Dioxide 22.7 mmol/L (21.6-31.8); Chloride 110 mmol/L (96-109); Glucose 135 mg/dL (70-110); Potassium 4.9 mmol/L (3.5-5.5); Sodium 144 mmol/L (135-145)
--- NOTE | 2024-01-07 12:20 | P.CRDCN ---
History of Present Illness Consult date: 01/07/24 Consult reason: atrial fibrillation History of present illness: History of present illness: This is an 88-year-old female patient of Dr. Alycia Suarez with past medical history of persistent atrial fibrillation, chronic diastolic heart failure, hypert ension, dyslipidemia, chronic hypoxic respiratory failure on home O2, blindness in the left eye. Patient resides at [facility]. We have been asked to evaluate the patient for atrial fibrillation. Patient is quite confused and unable to provide any information. EKG atrial fibrillation at 95 bpm, telemetry atrial fibrillation heart rate controlled in the 80s Chest x-ray: Cardiomegaly. 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 Chronic white matter ischemic changes. No acute intracranial process. WBC 10.1, hemoglobin 9.7, platelet count 273. Sodium 142, potassium 4.3, CO2 20, BUN 59 creatinine 1.78. Glucose 110. Liver function test are normal. proBNP 6670. Urinalysis negative for infection. Home cardiac medications: Atorvastatin 20 mg at bedtime, Bumex 2 mg daily, diltiazem 60 mg every 8 hours, metoprolol tartrate 100 mg twice daily, potassium chloride 10 mEq daily, Xarelto 15 mg at bedtime. Echocardiogram performed 12/01/2023 reveals EF 50-55%, severe pulmonary hypertension, biatrial enlargement, mild aortic regurgitation, pulmonary regurgitation. Review Of Systems: At the time of my exam: Unable to obtain due to patient's confusion. Physical examination: Gen: This is an 88-year-old female in no acute distress VS: reviewed blood pressure 136/68, heart rate 86, pulse ox 94% on 5 L nasal cannula, afebrile. HEENT: Head is atraumatic, normocephalic. Pupils equal, round. Sclerae is anicteric. NECK: Supple. No JVD. LUNGS: Clear to auscultation. No wheezes or rhonchi. No intercostal retractions. HEART: Irregular rate and rhythm. No murmur. ABDOMEN: Soft No tenderness. EXTREMITIES: No pedal edema. No calf tenderness. NEUROLOGICAL: Patient is confused. Assessment: Persistent atrial fibrillation Acute kidney injury Chronic diastolic heart failure Hypertension Dyslipidemia Blindness left eye Plan: Resume patient's home cardiac medications No need to repeat echocardiogram Further recommendations to follow based upon clinical course Thank you kindly for this consultation. Nurse practitioner note has been reviewed, I agree with documented findings and plan of care. Patient was seen and examined. Past Medical History Past Medical History: Heart Failure, Hypertension, Respiratory Disorder, Thyroid Disorder Additional Past Medical History / Comment(s): CHF, brain tumor, parathyroid History of Any Multi-Drug Resistant Organisms: None Reported Additional Past Surgical History / Comment(s): Parathiroid removed, brain tumor removed, Past Psychological History: No Psychological Hx Reported Smoking Status: Never smoker Past Alcohol Use History: None Reported Past Drug Use History: None Reported Medications and Allergies Home Medications Medication Instructions Recorded Confirmed Type Acetaminophen Tab [Tylenol] 1,000 mg PO BID 12/01/23 01/06/24 History Atorvastatin [Lipitor] 20 mg PO HS 12/01/23 01/06/24 History Citalopram Hydrobromide [CeleXA] 10 mg PO DAILY 12/01/23 01/06/24 History Melatonin 1 mg PO HS 12/01/23 01/06/24 History Metoprolol Tartrate [Lopressor] 100 mg PO BID 12/01/23 01/06/24 History Potassium Chloride ER [K-Dur 10] 10 meq PO DAILY 12/01/23 01/06/24 History Rivaroxaban [Xarelto] 15 mg PO HS 12/01/23 01/06/24 History dilTIAZem HCL 60 mg PO Q8H 12/01/23 01/06/24 History Ammonium Lactate Lotion 1 applic TOPICAL HS 12/14/23 01/06/24 History [Lac-Hydrin 12% Lotion] Cranberry 450mg 450 mg PO HS 12/14/23 01/06/24 History Estradiol Cream [Estrace Cream 1 gm VAGINAL SUTH@2100 12/14/23 01/06/24 History 0.01%] ALPRAZolam [Xanax] 0.25 mg PO BID PRN #4 tab 12/24/23 01/06/24 Rx Budesonide [Pulmicort] 0.5 mg INHALATION RT-BID ml 12/24/23 01/06/24 Rx Tamsulosin [Flomax] 0.4 mg PO DAILY #0 cap 12/24/23 01/06/24 Rx Bumetanide [BUMEX] 2 mg PO DAILY 01/06/24 01/06/24 History Diclofenac Sodium Gel [Voltaren 1% 1 applic TOPICAL QID 01/06/24 01/06/24 History Gel] Allergies Allergy/AdvReac Type Severity Reaction Status Date / Time No Known Allergies Allergy Verified 01/06/24 09:17 Physical Exam Vitals: Vital Signs Temp Pulse Pulse Pulse Resp BP BP 01/07/24 02:05 98.7 F 86 15 136/68 01/07/24 01:15 63 14 01/06/24 21:43 63 14 01/06/24 19:40 98.2 F 63 14 136/75 01/06/24 16:53 98 F 93 18 122/80 01/06/24 11:24 125 H 22 102/74 01/06/24 11:10 120 H 01/06/24 11:00 98 22 80/69 01/06/24 10:59 109 H 01/06/24 10:00 121 H 24 107/93 01/06/24 09:00 123 H 22 99/88 01/06/24 08:00 105 H 22 Pulse Ox 01/07/24 02:05 94 L 01/07/24 01:15 01/06/24 21:43 01/06/24 19:40 95 01/06/24 16:53 93 L 01/06/24 11:24 93 L 01/06/24 11:10 01/06/24 11:00 76 L 01/06/24 10:59 01/06/24 10:00 01/06/24 09:00 01/06/24 08:00 Intake and Output 01/06/24 01/07/24 01/07/24 22:59 06:59 14:59 Output Total 608 400 Balance -608 -400 Output: Urine 400 Straight 400 Post Void Residual 608 Other: Voiding Method Diaper Diaper Incontinent Incontinent # Voids 0 1 Results 01/07/24 03:32 01/07/24 03:32 Current Medications Generic Name Dose Route Start Last Admin Trade Name Freq PRN Reason Stop Dose Admin Acetaminophen 650 mg 01/06/24 08:07 Acetaminophen Tab 325 Mg Tab PO Q6HR PRN Mild Pain or Fever > 100.5 Acetaminophen 1,000 mg 01/06/24 10:45 01/06/24 21:43 Acetaminophen Tab 500 Mg Tab PO 1,000 mg BID SHY Administration Alprazolam 0.25 mg 01/06/24 10:31 Alprazolam 0.25 Mg Tab PO BID PRN Anxiety Atorvastatin Calcium 20 mg 01/06/24 21:00 01/06/24 21:43 Atorvastatin 20 Mg Tab PO 20 mg HS [facility] Administration Budesonide 0.5 mg 01/06/24 10:31 01/06/24 20:03 Budesonide 0.5 Mg/2 Ml Nebu INHALATION Not Given RT-BID SHY Bumetanide 2 mg 01/07/24 09:00 Bumetanide 1 Mg Tab PO DAILY [facility] Citalopram Hydrobromide 10 mg 01/06/24 10:45 01/06/24 12:00 Citalopram Hydrobromide 10 Mg Tab PO Not Given DAILY [facility] Diclofenac Sodium 2 gm 01/06/24 13:00 01/06/24 21:09 Diclofenac Sodium Gel 100 Gm Tube TOPICAL 2 gm QID [facility] Administration Protocol Diltiazem HCl 60 mg 01/06/24 23:45 01/07/24 00:18 Diltiazem Oral 60 Mg Tab PO 60 mg Q8H [facility] Administration Estradiol 1 applic 01/07/24 21:00 Estradiol 0.1 Mg/Gm Vaginal Cream 42.5 Gm Tube VAGINAL SUTH@2100 [facility] Dextrose/Sodium Chloride 1,000 mls @ 20 mls/hr 01/06/24 12:00 01/07/24 04:54 Dextrose 5%-1/2ns Iv Soln IV Not Given .Q24H SHY Lactic Acid 1 applic 01/06/24 21:00 01/06/24 21:09 Ammonium Lactate 12% Lotion 225 Gm Btl TOPICAL 1 applic HS [facility] Administration Protocol Lorazepam 0.5 mg 01/06/24 08:07 Lorazepam 0.5 Mg Tab PO Q6HR PRN Anxiety Melatonin 1 mg 01/06/24 21:00 01/06/24 21:43 Melatonin 1 Mg Tab PO 1 mg HS [facility] Administration Metoprolol Tartrate 100 mg 01/06/24 10:45 01/06/24 21:43 Metoprolol Tartrate 50 Mg Tab PO 100 mg BID SHY Administration Naloxone HCl 0.2 mg 01/06/24 08:07 Naloxone 0.4 Mg/Ml 1 Ml Vial IV Q2M PRN Opioid Reversal Potassium Chloride 10 meq 01/06/24 10:45 01/06/24 12:00 Potassium Chloride Er 10 Meq Tab.Er.Prt PO Not Given DAILY SHY Rivaroxaban 15 mg 01/06/24 21:00 01/06/24 21:43 Rivaroxaban 15 Mg Tab PO 15 mg HS SHY Administration Protocol Tamsulosin HCl 0.4 mg 01/06/24 23:45 01/07/24 00:18 Tamsulosin 0.4 Mg Cap.Er.24h PO 0.4 mg HS SHY Administration Intake and Output 01/06/24 01/07/24 01/07/24 22:59 06:59 14:59 Output Total 608 400 Balance -608 -400 Output: Urine 400 Straight 400 Post Void Residual 608 Other: Voiding Method Diaper Diaper Incontinent Incontinent # Voids 0 1 01/06/24 04:35 01/06/24 04:35
--- NOTE | 2024-01-07 16:21 | P.CNNES ---
History of Present Illness Consult date: 01/07/24 Requesting physician: Lawrence Tamayo Reason for Consult: Tremors shaking History of Present Illness: Patient is a 88-year-old left handed female with history of hypertension, CHF, atrial fibrillation, on Xarelto, was brought to the hospital for tremors and shaking. Patient's caregiver was present, who comes for 4 hours every Thursday and , and another caregiver comes 3 or 4 days a week (total 6 days a week coverage). She provided also with a history. Patient's caregiver states that she has been hospitalized 3 times in the last couple weeks, for UTI, pneumonia and nosebleed. Just last 01/03/2024, she was evaluated in the ER for a nosebleed, stayed for 4 hours and then released. Last she was fine. This Thursday she was fine as well. However yesterday she was noted to be very tremulous, shaky, therefore patient was brought to the hospital by ambulance. Patient denies any fever, although she is always cold. Caregivers mentions that patient is usually quite independent, uses bathroom on her own. She takes her pills by herself. Her daughter also watches her. As per EMS flowsheet when they arrived, staff mentioned that patient has been having tremors. She was alert and oriented x 3 stating the tremors are normal and she has had them for over a month every night. Patient states that she has seen a doctor for this concern. She denied any chest pain shortness of breath or difficulty breathing. Patient had no complaints and does not understand why she is needing to go to the ER. Patient's vitals at the scene was blood pressure 126/72, pulse rate 86, respiration 20, saturation 96%. Blood test shows WBC 10.77, hemoglobin 9.1 with elevated MCV 100.3 and platelets 257. ABG with pH of 7.40, pCO2 33, pO2 is 100% on 40% FiO2. Electrolytes are normal, BUN is 47 creatinine 1.5. TSH normal. UA negative. EKG shows atrial fibrillation with aberrant conduction or ventricular premature complexes. 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 Chronic appearing periventricular white matter ischemic type changes, stable. No acute intracranial process. I personally reviewed CT head, agree with the findings. Evidence of old encephalomalacia right occipital region. Chest x-ray revealed cardiomegaly. Patient at present complaining of shortness of breath, and burning in vagina. 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 Patient denies any tobacco use or alcohol use. She denies diabetes or any history of Parkinson's. She does have hypertension, CHF but no asthma or COPD. She does use oxygen by nasal cannula 27/04 basis. Review of Systems Constitutional: Reports chills, Reports fever Eyes: left loss of vision (Chronic), denies blurred vision, denies diplopia, denies pain Ears: bilateral: decreased hearing, tinnitus, deny: ear discharge Ears, nose, mouth and throat: Denies headache, Denies sore throat, Denies vertigo Cardiovascular: Reports chest pain (once in a while), Reports lightheadedness, Reports shortness of breath (all the time) Respiratory: Denies cough, Denies excessive sputum Gastrointestinal: Reports diarrhea ( day), Denies abdominal pain, Denies nausea, Denies vomiting Genitourinary: Reports dysuria, Reports flank pain (sometimes), Reports urge incontinence, Denies hematuria Musculoskeletal: Denies low back pain, Denies neck pain Integumentary: Denies pruritus, Denies rash Neurological: Reports as per HPI Psychiatric: Reports anxiety, Reports depression Hematologic/Lymphatic: Reports easy bleeding Past Medical History Past Medical History: Heart Failure, Hypertension, Respiratory Disorder, Thyroid Disorder Additional Past Medical History / Comment(s): CHF, brain tumor, parathyroid History of Any Multi-Drug Resistant Organisms: None Reported Additional Past Surgical History / Comment(s): Parathiroid removed, brain tumor removed, Past Psychological History: No Psychological Hx Reported Smoking Status: Never smoker Past Alcohol Use History: None Reported Past Drug Use History: None Reported Medications and Allergies Home Medications Medication Instructions Recorded Confirmed Type Acetaminophen Tab [Tylenol] 1,000 mg PO BID 12/01/23 01/06/24 History Atorvastatin [Lipitor] 20 mg PO HS 12/01/23 01/06/24 History Citalopram Hydrobromide [CeleXA] 10 mg PO DAILY 12/01/23 01/06/24 History Melatonin 1 mg PO HS 12/01/23 01/06/24 History Metoprolol Tartrate [Lopressor] 100 mg PO BID 12/01/23 01/06/24 History Potassium Chloride ER [K-Dur 10] 10 meq PO DAILY 12/01/23 01/06/24 History Rivaroxaban [Xarelto] 15 mg PO HS 12/01/23 01/06/24 History dilTIAZem HCL 60 mg PO Q8H 12/01/23 01/06/24 History Ammonium Lactate Lotion 1 applic TOPICAL HS 12/14/23 01/06/24 History [Lac-Hydrin 12% Lotion] Cranberry 450mg 450 mg PO HS 12/14/23 01/06/24 History Estradiol Cream [Estrace Cream 1 gm VAGINAL SUTH@2100 12/14/23 01/06/24 History 0.01%] ALPRAZolam [Xanax] 0.25 mg PO BID PRN #4 tab 12/24/23 01/06/24 Rx Budesonide [Pulmicort] 0.5 mg INHALATION RT-BID ml 12/24/23 01/06/24 Rx Tamsulosin [Flomax] 0.4 mg PO DAILY #0 cap 12/24/23 01/06/24 Rx Bumetanide [BUMEX] 2 mg PO DAILY 01/06/24 01/06/24 History Diclofenac Sodium Gel [Voltaren 1% 1 applic TOPICAL QID 01/06/24 01/06/24 History Gel] Allergies Allergy/AdvReac Type Severity Reaction Status Date / Time No Known Allergies Allergy Verified 01/06/24 09:17 Physical Examination - Vital Signs Vital Signs: Vital Signs Temp Pulse Pulse Pulse Resp BP Pulse Ox 01/07/24 09:34 59 L 01/07/24 09:23 90 98 01/07/24 08:00 78 63 18 01/07/24 07:00 98.1 F 78 18 115/68 94 L 01/07/24 02:05 98.7 F 86 15 136/68 94 L 01/07/24 01:15 63 14 01/06/24 21:43 63 14 01/06/24 19:40 98.2 F 63 14 136/75 95 01/06/24 16:53 98 F 93 18 122/80 93 L Intake and Output 01/06/24 01/07/24 01/07/24 22:59 06:59 14:59 Output Total 608 400 Balance -608 -400 Output: Urine 400 Straight 400 Post Void Residual 608 Other: Voiding Method Diaper Diaper Diaper Incontinent Incontinent Incontinent # Voids 0 1 Patient is an elderly female, very pleasant, who appears to be somewhat in mild respiratory distress, breathing very fast. She has some anxiety component as well, as intermittently she gets more tachypneic. Patient is alert awake oriented to time place and person. Patient knows it is January 2024 and that she is in hospital in [facility] and with choices, she was able to tell Gabriel. Speech and language functions are normal. Patient can name and repeat very well. No aphasia or dysarthria. Attention, concentration and fund of knowledge is adequate. On cranial nerve examination, pupils are equal, round and reacting to light, visual donovan revealed left homonymous hemianopia which is chronic from previous brain surgery. Extraocular muscles are intact with no nystagmus. Face is symmetric, tongue protrudes to the midline. Palatal elevation and sensation normal, hearing is moderately decreased and shoulder shrug normal, facial sensation normal. On muscle strength testing, there is no pronator drift and the strength is normal in arms and legs distally and proximally. Deep tendon reflexes are symmetric 1 all over and plantars downgoing. Sensory to touch is equal with no neglect on double simultaneous stimulation. Cerebellar function showed no ataxia for [id number] testing. No dysdiadochokinesia. No ataxia for [id number]-mi-owmb testing on either side. Tone and bulk of muscles normal. Patient does have some fine tremors of outstretched hands. Occasional myoclonic jerks was noted proximally in the shoulder. Gait deferred.. On general examination, there is no carotid bruit or murmur, S1-S2 audible. Chest is clear on consultation. Abdomen is soft nontender. No organomegaly, bowel sounds present. Peripheral pulses are present. No peripheral edema. Results - Laboratory Findings CBC and BMP: 01/07/24 03:32 01/08/24 05:51 Abnormal Lab Findings: Abnormal Labs 01/06/24 01/06/24 01/06/24 04:35 04:35 12:58 WBC RBC 3.17 L Hgb 9.7 L D Hct 31.0 L MCV MCHC RDW 15.7 H Neutrophils # Lymphocytes # Monocytes # NRBC/100 WBC Diff ABG pCO2 33 L ABG O2 Saturation 97.8 H Chloride 108 H Carbon Dioxide 20 L BUN 59 H Creatinine 1.78 H Est GFR (CKD-EPI) BUN/Creatinine Ratio Glucose 110 H Total Protein 6.1 L Albumin 3.4 L 01/07/24 01/07/24 03:32 03:32 WBC 10.77 H RBC 3.07 L Hgb 9.1 L Hct 30.8 L MCV 100.3 H MCHC 29.5 L RDW 15.9 H Neutrophils # 8.50 H Lymphocytes # 0.88 L Monocytes # 1.14 H NRBC/100 WBC Diff 0.06 H ABG pCO2 ABG O2 Saturation Chloride 110 H Carbon Dioxide BUN 47.4 H Creatinine Est GFR (CKD-EPI) 34 L BUN/Creatinine Ratio 31.60 H Glucose 135 H Total Protein Albumin Assessment and Plan Assessment: * Tremors, likely metabolic in nature. Rule out occult infection, electrolyte imbalance, or other metabolic or organ dysfunction. * CHF, rule out exacerbation * Atrial fibrillation, on long-term anticoagulation. * History of benign brain tumor resection, with subsequent chronic left homonymous hemianopia * Macrocytic anemia * Acute kidney injury * Hypertension * Hyperlipidemia * On home oxygen Plan: * Patient's tremors are most likely metabolic in nature. * Internal medicine to evaluate for any organ dysfunction, or to identify any other toxic metabolic causes. * Patient is not on any high-dose steroids, although she is on Pulmicort, which has some corticosteroids, may contribute to these tremors. * Patient has macrocytic anemia. We will check B12, folate, MMA. TSH is normal, ammonia < 9. * We will follow clinically. Thank you for the consult. Time with Patient: Greater than 30
--- NOTE | 2024-01-07 17:15 | P.PN ---
Progress Note - Text Progress Note Date: 01/07/24 Chief Complaint: Altered mentation This is a 88-year-old patient, follows with Dr. Sera Johnson. 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 Was treated for CHF exacerbation EF 50 to 55%, bout of epistaxis, has atrial fibrillation, secondary pulm hypertension. She was discharged to [facility] [place]hab Readmitted from December 13 through December 23.: Sepsis, UTI, CHF exacerbation,- discharge back to rehab He now presents to the ER again. Caregiver at the bedside who knows the patient from before. 5 days ago patient was at L level. That is on Thursday. On Thursday she presented to the ER with a nosebleed and was sent back to rehab. Yesterday patient had gone to follow-up appointments but was more confused. EMS was called as patient becoming more confused. Having generalized tremors. Patient is rather restless. She did tell the EMS that she was having tremors for over a month every night. In the ER patient was more delirious. She is a DNR. January 06: Patient mated with acute delirium/metabolic encephalopathy from acute kidney injury. Given IV fluids. This morning doing better. Mouth still a bit dry. Spoke to the nurse about oral toilet. Will give some more IV fluids today. Patient is answering questions much better. Active Medications Acetaminophen (Acetaminophen Tab 325 Mg Tab) 650 mg PO Q6HR PRN PRN Reason: Mild Pain or Fever > 100.5 Acetaminophen (Acetaminophen Tab 500 Mg Tab) 1,000 mg PO BID [facility] Last Admin: 01/07/24 12:44 Dose: 1,000 mg Alprazolam (Alprazolam 0.25 Mg Tab) 0.25 mg PO BID PRN PRN Reason: Anxiety Atorvastatin Calcium (Atorvastatin 20 Mg Tab) 20 mg PO HS [facility] Last Admin: 01/06/24 21:43 Dose: 20 mg Budesonide (Budesonide 0.5 Mg/2 Ml Nebu) 0.5 mg INHALATION RT-BID [facility] Last Admin: 01/07/24 09:22 Dose: 0.5 mg Bumetanide (Bumetanide 1 Mg Tab) 2 mg PO DAILY [facility] Last Admin: 01/07/24 09:17 Dose: 2 mg Citalopram Hydrobromide (Citalopram Hydrobromide 10 Mg Tab) 10 mg PO DAILY [facility] Last Admin: 01/07/24 09:17 Dose: 10 mg Diclofenac Sodium (Diclofenac Sodium Gel 100 Gm Tube) 2 gm TOPICAL QID [facility]; Protocol Last Admin: 01/07/24 14:44 Dose: 2 gm Diltiazem HCl (Diltiazem Oral 60 Mg Tab) 60 mg PO Q8H [facility] Last Admin: 01/07/24 16:54 Dose: 60 mg Estradiol (Estradiol 0.1 Mg/Gm Vaginal Cream 42.5 Gm Tube) 1 applic VAGINAL SUTH@2100 [facility] Dextrose/Sodium Chloride (Dextrose 5%-1/2ns Iv Soln) 1,000 mls @ 75 mls/hr IV .[id number] [facility] Stop: 01/08/24 06:34 Lactic Acid (Ammonium Lactate 12% Lotion 225 Gm Btl) 1 applic TOPICAL HS [facility]; Protocol Last Admin: 01/06/24 21:09 Dose: 1 applic Lorazepam (Lorazepam 0.5 Mg Tab) 0.5 mg PO Q6HR PRN PRN Reason: Anxiety Melatonin (Melatonin 1 Mg Tab) 1 mg PO [facility] Last Admin: 01/06/24 21:43 Dose: 1 mg Metoprolol Tartrate (Metoprolol Tartrate 50 Mg Tab) 100 mg PO BID [facility] Last Admin: 01/07/24 09:17 Dose: 100 mg Naloxone HCl (Naloxone 0.4 Mg/Ml 1 Ml Vial) 0.2 mg IV Q2M PRN PRN Reason: Opioid Reversal Potassium Chloride (Potassium Chloride Er 10 Meq Tab.Er.Prt) 10 meq PO DAILY [facility] Last Admin: 01/07/24 09:18 Dose: 10 meq Rivaroxaban (Rivaroxaban 15 Mg Tab) 15 mg PO HS [facility]; Protocol Last Admin: 01/06/24 21:43 Dose: 15 mg Tamsulosin HCl (Tamsulosin 0.4 Mg Cap.Er.24h) 0.4 mg PO [facility] Last Admin: 01/07/24 00:18 Dose: 0.4 mg Social history: currently at [facility] on the [facility]. Home oxygen 2 L. Does not smoke. No alcohol. Physical examination: VITAL SIGNS: 98, 58, 19, 100 x 67, 95% on 5 L GENERAL: More awake, delirium much improved. Answering simple questions. EYES: Pupils equal. Conjunctiva teja l. HEENT: External appearance of nose and ears normal, oral cavity-dry mucous membrane NECK: JVD unable to assess; masses not palpable. HEART: First and second heart sounds are normal; edema present. LUNGS: Respiratory rate increased; some basal crackles n. ABDOMEN: Soft, nontender, liver spleen not palpable, no masses palpable. PSYCH: Answering simple questions today. MUSCULOSKELETAL:No Clubbing/cyanosis;muscles-grossly intact. OA NEUROLOGICAL: Cranial nerves grossly intact; no facial asymmetry, . Blind in the left eye. Jerking movements resolved for now INVESTIGATIONS, reviewed in the clinical context: January 06: White count 10.7 hemoglobin 9.1 potassium 4.9 BUN 47.4 creatinine 1.5 TSH 1.5 January 06, 2024: White count 10.1 hemoglobin 9.7 platelets 273 sodium 142 potassium 4.3 BUN 59 creatinine 1.78 UA: Negative EKG tracing personally reviewed by me-atrial fibrillation. Rate [address]-T wave changes. Previous investigation 2D echocardiogram [December 2023]: EF 50-55%. Severe pulmonary hypertension. Creatinine 1.05 on December 24, 1.December 23 Assessment and plan: -Acute delirium with metabolic encephalopathy from acute kidney injury and electrolyte abnormalities: Better - chronic congestive heart failure from diastolic EF 50 to 55%: On Bumex -Jerking movements of the limbs, restlessness, could be from underlying CIARA electrolyte abnormalities. 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 Lopressor 100 mg twice daily. Xarelto -Chronic urinary bladder outflow obstruction Maldonado catheter -Hyperlipidemia Lipitor -Chronic kidney disease stage III likely nephrosclerosis Baseline creatinine 1.0 -Essential hypertension Lopressor. Cardizem. -DNR Pulmonary start the patient on Bumex. Gently hydrate the patient overnight. Patient's creatinine still of the baseline. Clinically dry. Spoke to the nurse assisted feeding. Past Medical History Past Medical History: Heart Failure, Hypertension, Respiratory Disorder, Thyroid Disorder Additional Past Medical History / Comment(s): CHF, brain tumor, parathyroid History of Any Multi-Drug Resistant Organisms: None Reported Additional Past Surgical History / Comment(s): Parathiroid removed, brain tumor removed, Past Psychological History: No Psychological Hx Reported Smoking Status: Never smoker Past Alcohol Use History: None Reported Past Drug Use History: None Reported
[2024-01-07] MEDS: DEXTROSE 5%-0.45% NACL 1,000 ML IV SCH (21:45)
[2024-01-07] MEDS: ESTRADIOL 0.1 MG/GM VAGINAL CREAM 42.5 GM TUBE VAGINAL SCH (23:58)
[2024-01-08 06:39] LABS: African American GFR (CKD) 34 (>60 ml/min/1.73 sqM); Anion Gap 7 mmol/L; Blood Urea Nitrogen 45 mg/dL (7-17); Calcium 8.3 mg/dL (8.4-10.2); Carbon Dioxide 24 mmol/L (22-30); Chloride 110 mmol/L (98-107); Glucose 124 mg/dL (74-99); Non-African American GFR(CKD) 29 (>60 ml/min/1.73 sqM); Potassium 4.1 mmol/L (3.5-5.1); Sodium 141 mmol/L (137-145)
--- NOTE | 2024-01-08 11:32 | P.PN ---
Subjective Progress Note Date: 01/08/24 Patient is an 88-year-old white female with past medical history significant for diastolic heart failure, pulmonary hypertension, systemic hypertension, A-fib anticoagulated chronically on Xarelto, hypothyroidism, brain tumor with previous resection. She is currently confused and unable to provide any meaningful information. After reviewing her medical records, patient did have a recent hospitalization 12/14/2023 through 12/24/2023 for acute urinary tract infection and exacerbation of diastolic congestive heart failure. Patient was ultimately discharged to [facility] rehab facility. She did return to the emergency room 01/05/24 for epistaxis, patient was nasally packed and sent back to [facility]. Patient was then sent back to the emergency room the next day. She reportedly had been more altered, with generalized weakness, and had a generalized tremor. I am unsure of the patient's baseline mentation. 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 There is chronic appearing periventricular white matter ischemic type changes. No acute intracranial process identified. She was also noted to be hypoxic, and placed on supplemental oxygen. Chest x-ray taken on admission showed cardiomegaly. Read as no acute cardiopulmonary process, however, there may be some is interstitial edema. NT proBNP was elevated at 6670. Recent ec hocardiogram done on previous admission estimated left ventricular ejection fraction of 50 to 55% with severe pulmonary hypertension and an RVSP of 64 mmHg. Patient did have a ABG which was done on 5 L nasal cannula and had a PaO2 of 100, pCO2 of 33, pH of 7.4. CBC on arrival: WBC count 10.1, hemoglobin 9.7, hematocrit 31, platelets 273. BMP on arrival: Sodium 142, potassium 4.3, chloride 108, serum bicarb 20, BUN 59, creatinine 1.78, glucose 110. Urinalysis done this admission not concerning for UTI. Patient has had some urinary retention noted previously and this admission by the nurse. Possible postobstructive uropathy. She has been taking Flomax. Patient is currently lying in bed, disheveled, not providing any meaningful information to my questions. She is oriented to self only. She does have a resting tremor. Current heart rhythm appears to be atrial fibrillation with rapid ventricular rate. She is anticoagulated on Xarelto. She does have presumptive dried blood in her oral cavity. No further active epistaxis. Afebrile. Vital signs are stable. The patient is seen today January 08, 2024 in follow-up on the regular medical floor. She is currently resting comfortably in bed awake and alert in no acute distress. Maintaining O2 saturations in the 90s on 5 L/min per nasal cannula. She has D5W at and a half normal saline at 75 MLS per hour. Sodium 141. Potassium 4.1. Bicarb 24. BUN 45. Creatinine 1.57. Glucose 124. Anticoagulated with Xarelto. She is on Bumex 2 mg daily. Objective - Vital Signs Vital signs: Vital Signs Temp 97.5 F L 01/08/24 07:26 Pulse 89 01/08/24 07:26 Resp 18 01/08/24 07:26 BP 111/79 01/08/24 07:26 Pulse Ox 95 01/08/24 07:26 FiO2 Intake & Output 01/07/24 01/08/24 01/08/24 18:59 06:59 18:59 Output Total 500 275 Balance -500 -275 Output: Urine 500 275 Other: Voiding Method Diaper Diaper Incontinent External Catheter # Voids 3 2 - Exam GENERAL EXAM: Alert, pleasantly confused, 88-year-old female, 5 L nasal cannula, in no apparent distress. HEAD: Normocephalic and atraumatic EYES: Normal reaction of pupils, equal size. NOSE: Dried blood. No active epistaxis THROAT: No erythema or exudates. Dried blood in the oral cavity. NECK: No masses, no JVD. CHEST: No chest wall deformity. LUNGS: Equal air entry with diminished lung sounds bilaterally. no crackles, wheeze, rhonchi or dullness. No conversational dyspnea. CVS: S1 and S2 normal with no audible murmur, irregular rhythm. No extra heart sounds ABDOMEN: No hepatosplenomegaly, active bowel sounds, no guarding or rigidity. SPINE: No scoliosis or deformity SKIN: No rashes. Diffuse seborrheic keratosis CENTRAL NERVOUS SYSTEM: Neurological exam limited by patient participation. Pupils are equal and reactive to light. There is a resting generalized tremor. EXTREMITIES: There is no peripheral edema, clubbing, or cyanosis. Peripheral pulses are intact. - Labs CBC & Chem 7: 01/07/24 03:32 01/08/24 05:51 Labs: Abnormal Lab Results - Last 24 Hours (Table) 01/08/24 Range/Units 05:51 Chloride 110 H (98-107) mmol/L BUN 45 H (7-17) mg/dL Creatinine 1.57 H (0.52-1.04) mg/dL Glucose 124 H (74-99) mg/dL Calcium 8.3 L (8.4-10.2) mg/dL Assessment and Plan Assessment: Acute hypoxemic respiratory failure, possible exacerbation of chronic diastolic congestive heart failure. Chest x-ray taken on admission showed cardiomegaly, there may be some is interstitial edema. NT proBNP was elevated at 6670. 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 There is chronic appearing periventricular white matter ischemic type changes. No acute intracranial process identified. Resting tremor Epistaxis Normocytic normochromic anemia History of hypothyroidism History of brain tumor with previous resection Obesity, with a BMI of 34.1 kg/m Plan: The patient was seen and evaluated Medications and labs reviewed Currently stable on 5 L nasal cannula Titrate down the FiO2 as tolerated Plan is to return to [facility] on the [place] at discharge This patient was seen independently by the pulmonary nurse practitioner addressing pulmonary issues I have personally seen and examined the patient, performed the documentation and the assessment and plan as written. Number of minutes spent on the visit: 24.
--- NOTE | 2024-01-08 13:07 | P.PN ---
Subjective Progress Note Date: 01/08/24 Consult reason: atrial fibrillation History of present illness: History of present illness: This is an 88-year-old female patient of Dr. Alycia Suarez with past medical history of persistent atrial fibrillation, chronic diastolic heart failure, hypertension, dyslipidemia, chronic hypoxic respiratory failure on home O2, blindness in the left eye. [facility]. We have been asked to evaluate the patient for atrial fibrillation. Patient is quite confused and unable to provide any information. EKG atrial fibrillation at 95 bpm, telemetry atrial fibrillation heart rate controlled in the 80s Chest x-ray: Cardiomegaly. 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 Chronic white matter ischemic changes. No acute intracranial process. WBC 10.1, hemoglobin 9.7, platelet count 273. Sodium 142, potassium 4.3, CO2 20, BUN 59 creatinine 1.78. Glucose 110. Liver function test are normal. proBNP 6670. Urinalysis negative for infection. Home cardiac medications: Atorvastatin 20 mg at bedtime, Bumex 2 mg daily, diltiazem 60 mg every 8 hours, metoprolol tartrate 100 mg twice daily, potassium chloride 10 mEq daily, Xarelto 15 mg at bedtime. Echocardiogram performed 12/01/2023 reveals EF 50-55%, severe pulmonary hypertension, biatrial enlargement, mild aortic regurgitation, pulmonary re gurgitation. 4/5 Caregiver at bedside. Patient has had no further nosebleeds and she has been resumed on Xarelto during this hospitalization. Patient remains in atrial fibrillation heart rate controlled in the 70s and 80s, blood pressure 111/79, pulse ox 95% on 5 L nasal cannula. Repeat blood work reveals potassium 4.1, BUN 45 creatinine 1.57. Neurology is following for tremors. Physical examination: Gen: This is an 88-year-old female in no acute distress VS: reviewed blood pressure 136/68, heart rate 86, pulse ox 94% on 5 L nasal cannula, afebrile. HEENT: Head is atraumatic, normocephalic. Pupils equal, round. Sclerae is anicteric. NECK: Supple. No JVD. LUNGS: Clear to auscultation. No wheezes or rhonchi. No intercostal retractions. HEART: Irregular rate and rhythm. No murmur. ABDOMEN: Soft No tenderness. EXTREMITIES: No pedal edema. No calf tenderness. NEUROLOGICAL: Patient is confused. Assessment: Persistent atrial fibrillation Acute kidney injury Tremors Chronic diastolic heart failure Hypertension Dyslipidemia Blindness left eye Plan: Continue patient's home cardiac medications No need to repeat echocardiogram Cardiology will sign off this case and follow on an as-needed basis. Please reconsult for any new concerns. Patient may follow-up in the office in one to 2 weeks. Nurse practitioner note has been reviewed, I agree with documented findings and plan of care. Patient was seen and examined. Objective - Vital Signs Vital signs: Vital Signs Temp 97.5 F L 01/08/24 07:26 Pulse 89 01/08/24 07:26 Resp 18 01/08/24 07:26 BP 111/79 01/08/24 07:26 Pulse Ox 95 01/08/24 07:26 FiO2 Intake & Output 01/07/24 01/08/24 01/08/24 18:59 06:59 18:59 Output Total 500 275 Balance -500 -275 Output: Urine 500 275 Other: Voiding Method Diaper Diaper Incontinent External Catheter # Voids 3 2 - Labs CBC & Chem 7: 01/07/24 03:32 01/08/24 05:51 Labs: Abnormal Lab Results - Last 24 Hours (Table) 01/08/24 Range/Units 05:51 Chloride 110 H (98-107) mmol/L BUN 45 H (7-17) mg/dL Creatinine 1.57 H (0.52-1.04) mg/dL Glucose 124 H (74-99) mg/dL Calcium 8.3 L (8.4-10.2) mg/dL
--- NOTE | 2024-01-08 16:01 | P.PN ---
Progress Note - Text Progress Note Date: 01/08/24 Chief Complaint: Altered mentation This is a 88-year-old patient, follows with Dr. Sera Johnson. 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 Was treated for CHF exacerbation EF 50 to 55%, bout of epistaxis, has atrial fibrillation, secondary pulm hypertension. She was discharged to [facility] on the [place] for rehab Readmitted from December 13 through December 23.: Sepsis, UTI, CHF exacerbation,- discharge back to rehab He now presents to the ER again. Caregiver at the bedside who knows the patient from before. 5 days ago patient was at L level. That is on Thursday. On Thursday she presented to the ER with a nosebleed and was sent back to rehab. Yesterday patient had gone to follow-up appointments but was more confused. EMS was called as patient becoming more confused. Having generalized tremors. Patient is rather restless. She did tell the EMS that she was having tremors for over a month every night. In the ER patient was more delirious. She is a DNR. January 06: Patient mated with acute delirium/metabolic encephalopathy from acute kidney injury. Given IV fluids. This morning doing better. Mouth still a bit dry. Spoke to the nurse about oral toilet. Will give some more IV fluids today. Patient is answering questions much better. January 07: Eating better. Communicating better. Will hold tomorrow morning's Bumex. Continue with gentle hydration 75 cc an hour today. Active Medications Acetaminophen (Acetaminophen Tab 325 Mg Tab) 650 mg PO Q6HR PRN PRN Reason: Mild Pain or Fever > 100.5 Acetaminophen (Acetaminophen Tab 500 Mg Tab) 1,000 mg PO BID [facility] Last Admin: 01/08/24 09:08 Dose: 1,000 mg Alprazolam (Alprazolam 0.25 Mg Tab) 0.25 mg PO BID PRN PRN Reason: Anxiety Atorvastatin Calcium (Atorvastatin 20 Mg Tab) 20 mg PO HS [facility] Last Admin: 01/07/24 21:49 Dose: 20 mg Budesonide (Budesonide 0.5 Mg/2 Ml Nebu) 0.5 mg INHALATION RT-BID [facility] Last Admin: 01/08/24 08:49 Dose: Not Given Citalopram Hydrobromide (Citalopram Hydrobromide 10 Mg Tab) 10 mg PO DAILY [facility] Last Admin: 01/08/24 09:09 Dose: 10 mg Diclofenac Sodium (Diclofenac Sodium Gel 100 Gm Tube) 2 gm TOPICAL QID [facility]; Protocol Last Admin: 01/08/24 09:09 Dose: 2 gm Diltiazem HCl (Diltiazem Oral 60 Mg Tab) 60 mg PO Q8H [facility] Last Admin: 01/08/24 09:08 Dose: 60 mg Estradiol (Estradiol 0.1 Mg/Gm Vaginal Cream 42.5 Gm Tube) 1 applic VAGINAL SUTH@2100 [facility] Last Admin: 01/07/24 23:58 Dose: 1 applic Lactic Acid (Ammonium Lactate 12% Lotion 225 Gm Btl) 1 applic TOPICAL HS [facility]; Protocol Last Admin: 01/07/24 21:48 Dose: 1 applic Lorazepam (Lorazepam 0.5 Mg Tab) 0.5 mg PO Q6HR PRN PRN Reason: Anxiety Melatonin (Melatonin 1 Mg Tab) 1 mg PO [facility] Last Admin: 01/07/24 21:49 Dose: 1 mg Metoprolol Tartrate (Metoprolol Tartrate 50 Mg Tab) 100 mg PO BID [facility] Last Admin: 01/08/24 09:09 Dose: 100 mg Naloxone HCl (Naloxone 0.4 Mg/Ml 1 Ml Vial) 0.2 mg IV Q2M PRN PRN Reason: Opioid Reversal Potassium Chloride (Potassium Chloride Er 10 Meq Tab.Er.Prt) 10 meq PO DAILY [facility] Last Admin: 01/08/24 09:09 Dose: 10 meq Rivaroxaban (Rivaroxaban 15 Mg Tab) 15 mg PO [facility]; Protocol Last Admin: 01/07/24 21:49 Dose: 15 mg Tamsulosin HCl (Tamsulosin 0.4 Mg Cap.Er.24h) 0.4 mg PO [facility] Last Admin: 01/07/24 21:49 Dose: 0.4 mg Social history: currently at [facility] the [facility]. Home oxygen 2 L. Does not smoke. No alcohol. Physical examination: VITAL SIGNS: 97.7, 83, 22, 93 x 61, 92% on 3 L GENERAL: More awake, delirium better EYES: Pupils equal. Conjunctiva teja l. HEENT: External appearance of nose and ears normal, oral cavity-dry mucous membrane NECK: JVD unable to assess; masses not palpable. HEART: First and second heart sounds are normal; edema present. LUNGS: Respiratory rate increased; some basal crackles n. ABDOMEN: Soft, nontender, liver spleen not palpable, no masses palpable. PSYCH: Answering simple questions MUSCULOSKELETAL:No Clubbing/cyanosis;muscles-grossly intact. OA NEUROLOGICAL: Cranial nerves grossly intact; no facial asymmetry, . Blind in the left eye. Jerking movements resolved for now INVESTIGATIONS, reviewed in the clinical context: January 07: Potassium 4.1 BUN 45 creatinine 1.57 January 06: White count 10.7 hemoglobin 9.1 potassium 4.9 BUN 47.4 creatinine 1.5 TSH 1.5 January 06, 2024: White count 10.1 hemoglobin 9.7 platelets 273 sodium 142 potassium 4.3 BUN 59 creatinine 1.78 UA: Negative EKG tracing personally reviewed by me-atrial fibrillation. Rate [address]-T wave changes. Previous investigation 2D echocardiogram [December 2023]: EF 50-55%. Severe pulmonary hypertension. Creatinine 1.05 on December 24, 1.01 December 23 Assessment and plan: -Acute delirium with metabolic encephalopathy from acute kidney injury and electrolyte abnormalities: Better - chronic congestive heart failure from diastolic EF 50 to 55%: On Bumex -Jerking movements of the limbs, restlessness, could be from underlying CIARA electrolyte abnormalities. 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 Lopressor 100 mg twice daily. Xarelto -Chronic urinary bladder outflow obstruction Maldonado catheter -Hyperlipidemia Lipitor -Chronic kidney disease stage III likely nephrosclerosis Baseline creatinine 1.0 -Essential hypertension Lopressor. Cardizem. -DNR Continue with gentle hydration today. Hold tomorrow morning dose of Bumex. If renal function better. Hopefully discharge to ECF tomorrow. Past Medical History Past Medical History: Heart Failure, Hypertension, Respiratory Disorder, Thyroid Disorder Additional Past Medical History / Comment(s): CHF, brain tumor, parathyroid History of Any Multi-Drug Resistant Organisms: None Reported Additional Past Surgical History / Comment(s): Parathiroid removed, brain tumor removed, Past Psychological History: No Psychological Hx Reported Smoking Status: Never smoker Past Alcohol Use History: None Reported Past Drug Use History: None Reported
[2024-01-08] MEDS: ACETAMINOPHEN TAB 325 MG TAB PO PRN (16:16)
--- NOTE | 2024-01-09 08:26 | P.PN ---
Subjective Progress Note Date: 01/09/24 Patient is an 88-year-old white female with past medical history significant for diastolic heart failure, pulmonary hypertension, systemic hypertension, A-fib anticoagulated chronically on Xarelto, hypothyroidism, brain tumor with previous resection. She is currently confused and unable to provide any meaningful information. After reviewing her medical records, patient did have a recent hospitalization 12/14/2023 through 12/24/2023 for acute urinary tract infection and exacerbation of diastolic congestive heart failure. Patient was ultimately discharged to [facility] rehab facility. She did return to the emergency room 01/05/24 for epistaxis, patient was nasally packed and sent back to [facility]. Patient was then sent back to the emergency room the next day. She reportedly had been more altered, with generalized weakness, and had a generalized tremor. I am unsure of the patient's baseline mentation. 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 There is chronic appearing periventricular white matter ischemic type changes. No acute intracranial process identified. She was also noted to be hypoxic, and placed on supplemental oxygen. Chest x-ray taken on admission showed cardiomegaly. Read as no acute cardiopulmonary process, however, there may be some is interstitial edema. NT proBNP was elevated at 6670. Recent ec hocardiogram done on previous admission estimated left ventricular ejection fraction of 50 to 55% with severe pulmonary hypertension and an RVSP of 64 mmHg. Patient did have a ABG which was done on 5 L nasal cannula and had a PaO2 of 100, pCO2 of 33, pH of 7.4. CBC on arrival: WBC count 10.1, hemoglobin 9.7, hematocrit 31, platelets 273. BMP on arrival: Sodium 142, potassium 4.3, chloride 108, serum bicarb 20, BUN 59, creatinine 1.78, glucose 110. Urinalysis done this admission not concerning for UTI. Patient has had some urinary retention noted previously and this admission by the nurse. Possible postobstructive uropathy. She has been taking Flomax. Patient is currently lying in bed, disheveled, not providing any meaningful information to my questions. She is oriented to self only. She does have a resting tremor. Current heart rhythm appears to be atrial fibrillation with rapid ventricular rate. She is anticoagulated on Xarelto. She does have presumptive dried blood in her oral cavity. No further active epistaxis. Afebrile. Vital signs are stable. The patient is seen today January 08, 2024 in follow-up on the regular medical floor. She is currently resting comfortably in bed awake and alert in no acute distress. Maintaining O2 saturations in the 90s on 5 L/min per nasal cannula. She has D5W at and a half normal saline at 75 MLS per hour. Sodium 141. Potassium 4.1. Bicarb 24. BUN 45. Creatinine 1.57. Glucose 124. Anticoagulated with Xarelto. She is on Bumex 2 mg daily. The patient is seen today January 09, 2024 in follow-up on the regular medical floo r. Awake and alert in no acute distress. She is maintaining good O2 saturations in the 90s on 3 L nasal cannula. She denies any worsening shortness of breath, cough or congestion. She has been afebrile. Hemodynamically stable. Sodium 141. Potassium 4.1. Bicarb 24. BUN 45. Creatinine 1.57. Glucose 124. She is anticoagulated with Xarelto. She has been having some issues with epistaxis and complaints of dry nares secondary to the nasal cannula. She could be transitioned to a simple mask if necessary. She is tolerating a dysphagia level 3 chopped diet. Objective - Vital Signs Vital signs: Vital Signs Temp 96.5 F L 01/09/24 00:03 Pulse 82 01/09/24 00:03 Resp 16 01/09/24 00:03 BP 96/61 01/09/24 00:03 Pulse Ox 93 L 01/09/24 00:03 FiO2 Intake & Output 01/08/24 01/09/24 01/09/24 18:59 06:59 18:59 Intake Total 118 Output Total 150 Balance 118 -150 Intake: Oral 118 Output: Urine 150 Other: Voiding Method Diaper External Catheter # Voids 4 # Bowel Movements 1 - Exam GENERAL EXAM: Alert, confused, 88-year-old female, on 3 L nasal cannula, in no apparent distress. HEAD: Normocephalic and atraumatic EYES: Normal reaction of pupils, equal size. NOSE: Dried blood. Evidence of recent epistaxis THROAT: No erythema or exudates. NECK: No masses, no JVD. CHEST: No chest wall deformity. LUNGS: Equal air entry with diminished lung sounds bilaterally. no crackles, wheeze, rhonchi or dullness. No conversational dyspnea. CVS: S1 and S2 normal with no audible murmur, irregular rhythm. No extra heart sounds ABDOMEN: No hepatosplenomegaly, active bowel sounds, no guarding or rigidity. SPINE: No scoliosis or deformity SKIN: No rashes. Diffuse seborrheic keratosis CENTRAL NERVOUS SYSTEM: Neurological exam limited by patient participation. Pupils are equal and reactive to light. There is a resting generalized tremor. EXTREMITIES: There is no peripheral edema, clubbing, or cyanosis. Peripheral pulses are intact. - Labs CBC & Chem 7: 01/07/24 03:32 01/08/24 05:51 Assessment and Plan Assessment: Acute hypoxemic respiratory failure, possible exacerbation of chronic diastolic congestive heart failure. Chest x-ray taken on admission showed cardiomegaly, there may be some is interstitial edema. NT proBNP was elevated at 6670. 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 There is chronic appearing periventricular white matter ischemic type changes. No acute intracranial process identified. Resting tremor Epistaxis Normocytic normochromic anemia History of hypothyroidism History of brain tumor with previous resection Obesity, with a BMI of 34.1 kg/m Plan: The patient was seen and evaluated Medications and labs reviewed Currently stable on 3 L nasal cannula Titrate down the FiO2 as tolerated Could be transitioned to a simple mask Patient is having epistaxis from the right nare Complaints of dryness secondary to nasal cannula Plan is to return to [facility] on the [place] today This patient was seen independently by the pulmonary nurse practitioner addressing pulmonary issues I have personally seen and examined the patient, performed the documentation and the assessment and plan as written. Number of minutes spent on the visit: 23.
[2024-01-09] MEDS: OXYMETAZOLINE 0.05% NASL SPRAY 1 SPRAY BOTTLE NASAL SCH (09:03)
[2024-01-09] MEDS: ALPRAZolam 0.25 MG TAB PO PRN (09:16)
--- NOTE | 2024-01-09 09:20 | P.PN ---
Subjective Progress Note Date: 01/08/24 Patient was seen for a follow-up. Patient's tremors have improved. No new concerns. Objective - Vital Signs Vital signs: Vital Signs Temp 97.7 F 01/08/24 14:00 Pulse 83 01/08/24 14:00 Resp 22 01/08/24 14:00 BP 93/61 01/08/24 14:00 Pulse Ox 92 L 01/08/24 14:00 FiO2 Intake & Output 01/07/24 01/08/24 01/08/24 18:59 06:59 18:59 Intake Total 118 Output Total 500 275 Balance -500 -275 118 Intake: Oral 118 Output: Urine 500 275 Other: Voiding Method Diaper Diaper Incontinent External Catheter # Voids 3 2 - Exam Patient is laying comfortably in the bed. No distress. Patient has very minimal tremors of outstretched hands. Very mild tremors for [id number] testing. No ataxia. Rest of the examination is nonfocal. - Labs CBC & Chem 7: 01/07/24 03:32 01/08/24 05:51 Labs: Abnormal Lab Results - Last 24 Hours (Table) 01/08/24 Range/Units 05:51 Chloride 110 H (98-107) mmol/L BUN 45 H (7-17) mg/dL Creatinine 1.57 H (0.52-1.04) mg/dL Glucose 124 H (74-99) mg/dL Calcium 8.3 L (8.4-10.2) mg/dL Assessment and Plan Assessment: * Tremors, likely metabolic in nature. Rule out occult infection, electrolyte imbalance, or other metabolic or organ dysfunction. * CHF, rule out exacerbation * Atrial fibrillation, on long-term anticoagulation. * History of benign brain tumor resection, with subsequent chronic left homonymous hemianopia * Macrocytic anemia * Acute kidney injury * Hypertension * Hyperlipidemia * On home oxygen Plan: * Patient's tremors are most likely metabolic in nature. Her tremors are much better today, barely noticeable. * Internal medicine to evaluate for any organ dysfunction, or to identify any other toxic metabolic causes. * Patient is not on any high-dose steroids, although she is on Pulmicort, which has some corticosteroids, may contribute to these tremors. * Patient has macrocytic anemia. B12 543, folate 13.90, MMA pending. TSH is normal, ammonia < 9. * Neurologically clear for discharge.
--- NOTE | 2024-01-09 16:47 | P.PN ---
Progress Note - Text Progress Note Date: 01/09/24 Chief Complaint: Altered mentation This is a 88-year-old patient, follows with Dr. Sera Johnson. 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 Was treated for CHF exacerbation EF 50 to 55%, bout of epistaxis, has atrial fibrillation, secondary pulm hypertension. She was discharged to [facility] on the [place] for rehab Readmitted from December 13 through December 23.: Sepsis, UTI, CHF exacerbation,- discharge back to rehab He now presents to the ER again. Caregiver at the bedside who knows the patient from before. 5 days ago patient was at L level. That is on Thursday. On Thursday she presented to the ER with a nosebleed and was sent back to rehab. Yesterday patient had gone to follow-up appointments but was more confused. EMS was called as patient becoming more confused. Having generalized tremors. Patient is rather restless. She did tell the EMS that she was having tremors for over a month every night. In the ER patient was more delirious. She is a DNR. January 06: Patient mated with acute delirium/metabolic encephalopathy from acute kidney injury. Given IV fluids. This morning doing better. Mouth still a bit dry. Spoke to the nurse about oral toilet. Will give some more IV fluids today. Patient is answering questions much better. January 07: Eating better. Communicating better. Will hold tomorrow morning's Bumex. Continue with gentle hydration 75 cc an hour today. January 08: Patient started with epistaxis. She also had this in the last admission. Afrin nasal spray was used. Xarelto held for today. Patient's previous caregiver at the bedside. Otherwise patient able to communicate. Patient is put on a BiPAP by pulmonary. Active Medications Acetaminophen (Acetaminophen Tab 325 Mg Tab) 650 mg PO Q6HR PRN PRN Reason: Mild Pain or Fever > 100.5 Last Admin: 01/08/24 16:16 Dose: 650 mg Acetaminophen (Acetaminophen Tab 500 Mg Tab) 1,000 mg PO BID SHY Last Admin: 01/09/24 09:15 Dose: 1,000 mg Alprazolam (Alprazolam 0.25 Mg Tab) 0.25 mg PO BID PRN PRN Reason: Anxiety Last Admin: 01/09/24 09:16 Dose: 0.25 mg Atorvastatin Calcium (Atorvastatin 20 Mg Tab) 20 mg PO [facility] Last Admin: 01/08/24 22:12 Dose: 20 mg Citalopram Hydrobromide (Citalopram Hydrobromide 10 Mg Tab) 10 mg PO DAILY [facility] Last Admin: 01/09/24 09:17 Dose: 10 mg Diclofenac Sodium (Diclofenac Sodium Gel 100 Gm Tube) 2 gm TOPICAL QID [facility]; Protocol Last Admin: 01/09/24 15:19 Dose: 2 gm Diltiazem HCl (Diltiazem Oral 60 Mg Tab) 60 mg PO Q8H [facility] Last Admin: 01/09/24 15:41 Dose: Not Given Estradiol (Estradiol 0.1 Mg/Gm Vaginal Cream 42.5 Gm Tube) 1 applic VAGINAL SUTH@2100 [facility] Last Admin: 01/07/24 23:58 Dose: 1 applic Lactic Acid (Ammonium Lactate 12% Lotion 225 Gm Btl) 1 applic TOPICAL HS [facility]; Protocol Last Admin: 01/08/24 22:14 Dose: 1 applic Lorazepam (Lorazepam 0.5 Mg Tab) 0.5 mg PO Q6HR PRN PRN Reason: Anxiety Melatonin (Melatonin 1 Mg Tab) 1 mg PO [facility] Last Admin: 01/08/24 22:13 Dose: 1 mg Metoprolol Tartrate (Metoprolol Tartrate 50 Mg Tab) 100 mg PO BID [facility] Last Admin: 01/09/24 09:15 Dose: 100 mg Naloxone HCl (Naloxone 0.4 Mg/Ml 1 Ml Vial) 0.2 mg IV Q2M PRN PRN Reason: Opioid Reversal Oxymetazoline HCl (Oxymetazoline 0.05% Nasl [place] 1 [place] Bottle) 3 spray NASAL TID [facility] Stop: 01/16/24 09:00 Last Admin: 01/09/24 15:20 Dose: 3 spray Potassium Chloride (Potassium Chloride Er 10 Meq Tab.Er.Prt) 10 meq PO DAILY [facility] Last Admin: 01/09/24 09:16 Dose: 10 meq Rivaroxaban (Rivaroxaban 15 Mg Tab) 15 mg PO [facility]; Protocol Last Admin: 01/09/24 15:41 Dose: Not Given Tamsulosin HCl (Tamsulosin 0.4 Mg Cap.Er.24h) 0.4 mg PO [facility] Last Admin: 01/08/24 22:13 Dose: 0.4 mg Social history: currently at [facility] on the [facility]. Home oxygen 2 L. Does not smoke. No alcohol. Physical examination: VITAL SIGNS: 7.7, 81, 16, 90/63, 93% on 90 mask GENERAL: In bed, answering questions EYES: Pupils equal. Conjunctiva teja l. HEENT: External appearance of nose and ears normal, oral cavity-dry mucous membrane. Dried blood in the right nostril NECK: JVD unable to assess; masses not palpable. HEART: First and second heart sounds are normal; edema present. LUNGS: Respiratory rate increased; some basal crackles n. ABDOMEN: Soft, nontender, liver spleen not palpable, no masses palpable. PSYCH: Answering simple questions. MUSCULOSKELETAL:No Clubbing/cyanosis;muscles-grossly intact. OA NEUROLOGICAL: Cranial nerves grossly intact; no facial asymmetry, . Blind in the left eye. Jerking movements resolved for now INVESTIGATIONS, reviewed in the clinical context: January 07: Potassium 4.1 BUN 45 creatinine 1.57 January 06: White count 10.7 hemoglobin 9.1 potassium 4.9 BUN 47.4 creatinine 1.5 TSH 1.5 January 06, 2024: White count 10.1 hemoglobin 9.7 platelets 273 sodium 142 potassium 4.3 BUN 59 creatinine 1.78 UA: Negative EKG tracing personally reviewed by me-atrial fibrillation. Rate [address]-T wave changes. Previous investigation 2D echocardiogram [December 2023]: EF 50-55%. Severe pulmonary hypertension. Creatinine 1.05 on December 24, 1.December 23 Assessment and plan: -Acute delirium with metabolic encephalopathy from acute kidney injury and electrolyte abnormalities: Improved -Acute epistaxis from local trauma from nasal prong and patient being on Eliquis Afrin nasal spray. Hold Xarelto - chronic congestive heart failure from diastolic EF 50 to 55%: On Bumex -Jerking movements of the limbs, restlessness, could be from underlying CIARA electrolyte abnormalities. 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 Lopressor 100 mg twice daily. Xarelto -Chronic urinary bladder outflow obstruction Maldonado catheter -Hyperlipidemia Lipitor -Chronic kidney disease stage III likely nephrosclerosis Baseline creatinine 1.0 -Essential hypertension Lopressor. Cardizem. -DNR Hold Xarelto. Nasal spray. Skills with caregiver at the bedside. Past Medical History Past Medical History: Heart Failure, Hypertension, Respiratory Disorder, Thyroid Disorder Additional Past Medical History / Comment(s): CHF, brain tumor, parathyroid History of Any Multi-Drug Resistant Organisms: None Reported Additional Past Surgical History / Comment(s): Parathiroid removed, brain tumor removed, Past Psychological History: No Psychological Hx Reported Smoking Status: Never smoker Past Alcohol Use History: None Reported Past Drug Use History: None Reported
[2024-01-09] MEDS: DEXTROSE 5%-0.45% NACL 1,000 ML IV SCH (18:04)
--- NOTE | 2024-01-10 07:55 | P.PN ---
Subjective Progress Note Date: 01/10/24 Patient is an 88-year-old white female with past medical history significant for diastolic heart failure, pulmonary hypertension, systemic hypertension, A-fib anticoagulated chronically on Xarelto, hypothyroidism, brain tumor with previous resection. She is currently confused and unable to provide any meaningful information. After reviewing her medical records, patient did have a recent hospitalization 12/14/2023 through 12/24/2023 for acute urinary tract infection and exacerbation of diastolic congestive heart failure. Patient was ultimately discharged to [facility] rehab facility. She did return to the emergency room 01/05/24 for epistaxis, patient was nasally packed and sent back to [facility]. Patient was then sent back to the emergency room the next day. She reportedly had been more altered, with generalized weakness, and had a generalized tremor. I am unsure of the patient's baseline mentation. 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 There is chronic appearing periventricular white matter ischemic type changes. No acute intracranial process identified. She was also noted to be hypoxic, and placed on supplemental oxygen. Chest x-ray taken on admission showed cardiomegaly. Read as no acute cardiopulmonary process, however, there may be some is interstitial edema. NT proBNP was elevated at 6670. Recent ec hocardiogram done on previous admission estimated left ventricular ejection fraction of 50 to 55% with severe pulmonary hypertension and an RVSP of 64 mmHg. Patient did have a ABG which was done on 5 L nasal cannula and had a PaO2 of 100, pCO2 of 33, pH of 7.4. CBC on arrival: WBC count 10.1, hemoglobin 9.7, hematocrit 31, platelets 273. BMP on arrival: Sodium 142, potassium 4.3, chloride 108, serum bicarb 20, BUN 59, creatinine 1.78, glucose 110. Urinalysis done this admission not concerning for UTI. Patient has had some urinary retention noted previously and this admission by the nurse. Possible postobstructive uropathy. She has been taking Flomax. Patient is currently lying in bed, disheveled, not providing any meaningful information to my questions. She is oriented to self only. She does have a resting tremor. Current heart rhythm appears to be atrial fibrillation with rapid ventricular rate. She is anticoagulated on Xarelto. She does have presumptive dried blood in her oral cavity. No further active epistaxis. Afebrile. Vital signs are stable. The patient is seen today January 08, 2024 in follow-up on the regular medical floor. She is currently resting comfortably in bed awake and alert in no acute distress. Maintaining O2 saturations in the 90s on 5 L/min per nasal cannula. She has D5W at and a half normal saline at 75 MLS per hour. Sodium 141. Potassium 4.1. Bicarb 24. BUN 45. Creatinine 1.57. Glucose 124. Anticoagulated with Xarelto. She is on Bumex 2 mg daily. The patient is seen today January 09, 2024 in follow-up on the regular medical floo r. Awake and alert in no acute distress. She is maintaining good O2 saturations in the 90s on 3 L nasal cannula. She denies any worsening shortness of breath, cough or congestion. She has been afebrile. Hemodynamically stable. Sodium 141. Potassium 4.1. Bicarb 24. BUN 45. Creatinine 1.57. Glucose 124. She is anticoagulated with Xarelto. She has been having some issues with epistaxis and complaints of dry nares secondary to the nasal cannula. She could be transitioned to a simple mask if necessary. She is tolerating a dysphagia level 3 chopped diet. The patient is seen today January 10, 2024 in follow-up on the regular medical floor. She is currently resting comfortably in bed. Awake and alert in no acute distress. She is maintaining good O2 saturations in the 90s on 3 L/min per nasal cannula. She has been afebrile. Hemodynamically stable. She was having issues with epistaxis yesterday. Her Xarelto was held. No new labs today. She does have D5 and a half normal saline at 50 MLS per hour. Objective - Vital Signs Vital signs: Vital Signs Temp 97.4 F L 01/10/24 00:25 Pulse 68 01/10/24 00:25 Resp 16 01/10/24 00:25 BP 93/65 01/10/24 00:25 Pulse Ox 94 L 01/10/24 00:25 FiO2 28 01/09/24 09:04 Intake & Output 01/09/24 01/10/24 01/10/24 18:59 06:59 18:59 Output Total 470 250 Balance -470 -250 Output: Urine 200 250 Post Void Residual 270 Other: Voiding Method Diaper Diaper External Catheter External Catheter # Voids 2 # Bowel Movements 2 - Exam GENERAL EXAM: Alert, confused, 88-year-old female, resting in bed, on 3 L nasal cannula, in no apparent distress. HEAD: Normocephalic and atraumatic EYES: Normal reaction of pupils, equal size. NOSE: Dried blood. Evidence of recent epistaxis THROAT: No erythema or exudates. NECK: No masses, no JVD. CHEST: No chest wall deformity. LUNGS: Equal air entry with diminished lung sounds bilaterally. no crackles, wheeze, rhonchi or dullness. No conversational dyspnea. CVS: S1 and S2 normal with no audible murmur, irregular rhythm. No extra heart sounds ABDOMEN: No hepatosplenomegaly, active bowel sounds, no guarding or rigidity. SPINE: No scoliosis or deformity SKIN: No rashes. Diffuse seborrheic keratosis CENTRAL NERVOUS SYSTEM: Neurological exam limited by patient participation. Pupils are equal and reactive to light. There is a resting generalized tremor. EXTREMITIES: There is no peripheral edema, clubbing, or cyanosis. Peripheral pulses are intact. - Labs CBC & Chem 7: 01/07/24 03:32 01/08/24 05:51 Assessment and Plan Assessment: Acute hypoxemic respiratory failure, possible exacerbation of chronic diastolic congestive heart failure. Chest x-ray taken on admission showed cardiomegaly, there may be some is interstitial edema. NT proBNP was elevated at 6670. 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 There is chronic appearing periventricular white matter ischemic type changes. No acute intracranial process identified. Resting tremor Normocytic normochromic anemia History of hypothyroidism History of brain tumor with previous resection Obesity, with a BMI of 34.1 kg/m Plan: The patient was seen and evaluated Medications reviewed Currently stable on 3 L nasal cannula Titrate down the FiO2 as tolerated Follow-up chest x-ray in a.m. No further epistaxis noted, Xarelto was held Plan is to return to [facility] on the [place] upon discharge This patient was seen independently by the pulmonary nurse practitioner addressing pulmonary issues I have personally seen and examined the patient, performed the documentation and the assessment and plan as written. Number of minutes spent on the visit: 24.
--- NOTE | 2024-01-10 13:27 | P.PN ---
Progress Note - Text Progress Note Date: 01/10/24 Chief Complaint: Altered mentation This is a 88-year-old patient, follows with Dr. Sera Johnson. 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 Was treated for CHF exacerbation EF 50 to 55%, bout of epistaxis, has atrial fibrillation, secondary pulm hypertension. She was discharged to [facility] on the [place] for rehab Readmitted from December 13 through December 23.: Sepsis, UTI, CHF exacerbation,- discharge back to rehab He now presents to the ER again. Caregiver at the bedside who knows the patient from before. 5 days ago patient was at L level. That is on Thursday. On Thursday she presented to the ER with a nosebleed and was sent back to rehab. Yesterday patient had gone to follow-up appointments but was more confused. EMS was called as patient becoming more confused. Having generalized tremors. Patient is rather restless. She did tell the EMS that she was having tremors for over a month every night. In the ER patient was more delirious. She is a DNR. January 06: Patient mated with acute delirium/metabolic encephalopathy from acute kidney injury. Given IV fluids. This morning doing better. Mouth still a bit dry. Spoke to the nurse about oral toilet. Will give some more IV fluids today. Patient is answering questions much better. January 07: Eating better. Communicating better. Will hold tomorrow morning's Bumex. Continue with gentle hydration 75 cc an hour today. January 08: Patient started with epistaxis. She also had this in the last admission. Afrin nasal spray was used. Xarelto held for today. Patient's previous caregiver at the bedside. Otherwise patient able to communicate. Patient is put on a BiPAP by pulmonary. January 09: Patient little bit more of epistaxis last night. Otherwise tolerated diet. Tired. Looking better otherwise. Active Medications Acetaminophen (Acetaminophen Tab 325 Mg Tab) 650 mg PO Q6HR PRN PRN Reason: Mild Pain or Fever > 100.5 Last Admin: 01/08/24 16:16 Dose: 650 mg Acetaminophen (Acetaminophen Tab 500 Mg Tab) 1,000 mg PO BID SHY Last Admin: 01/10/24 09:03 Dose: 1,000 mg Alprazolam (Alprazolam 0.25 Mg Tab) 0.25 mg PO BID PRN PRN Reason: Anxiety Last Admin: 01/10/24 06:01 Dose: 0.25 mg Atorvastatin Calcium (Atorvastatin 20 Mg Tab) 20 mg PO HS [facility] Last Admin: 01/09/24 21:46 Dose: 20 mg Citalopram Hydrobromide (Citalopram Hydrobromide 10 Mg Tab) 10 mg PO DAILY [facility] Last Admin: 01/10/24 09:03 Dose: 10 mg Diclofenac Sodium (Diclofenac Sodium Gel 100 Gm Tube) 2 gm TOPICAL QID [facility]; Protocol Last Admin: 01/10/24 09:09 Dose: 2 gm Diltiazem HCl (Diltiazem Oral 60 Mg Tab) 60 mg PO Q8H [facility] Last Admin: 01/10/24 09:03 Dose: 60 mg Estradiol (Estradiol 0.1 Mg/Gm Vaginal Cream 42.5 Gm Tube) 1 applic VAGINAL SUTH@2100 [facility] Last Admin: 01/07/24 23:58 Dose: 1 applic Dextrose/Sodium Chloride (Dextrose 5%-1/2ns Iv Soln) 1,000 mls @ 50 mls/hr IV .Q20H [facility] Last Admin: 01/09/24 18:04 Dose: 50 mls/hr Lactic Acid (Ammonium Lactate 12% Lotion 225 Gm Btl) 1 applic TOPICAL HS [facility]; Protocol Last Admin: 01/09/24 21:47 Dose: 1 applic Lorazepam (Lorazepam 0.5 Mg Tab) 0.5 mg PO Q6HR PRN PRN Reason: Anxiety Melatonin (Melatonin 1 Mg Tab) 1 mg PO [facility] Last Admin: 01/09/24 21:44 Dose: 1 mg Metoprolol Tartrate (Metoprolol Tartrate 50 Mg Tab) 100 mg PO BID [facility] Last Admin: 01/10/24 09:03 Dose: 100 mg Naloxone HCl (Naloxone 0.4 Mg/Ml 1 Ml Vial) 0.2 mg IV Q2M PRN PRN Reason: Opioid Reversal Oxymetazoline HCl (Oxymetazoline 0.05% Nasl [place] 1 [place] Bottle) 3 spray NASAL TID [facility] Stop: 01/16/24 09:00 Last Admin: 01/10/24 10:43 Dose: Not Given Potassium Chloride (Potassium Chloride Er 10 Meq Tab.Er.Prt) 10 meq PO DAILY [facility] Last Admin: 01/10/24 09:03 Dose: 10 meq Rivaroxaban (Rivaroxaban 15 Mg Tab) 15 mg PO [facility]; Protocol Last Admin: 01/09/24 15:41 Dose: Not Given Tamsulosin HCl (Tamsulosin 0.4 Mg Cap.Er.24h) 0.4 mg PO [facility] Last Admin: 01/09/24 21:45 Dose: 0.4 mg Social history: currently at [facility] on the [facility]. Home oxygen 2 L. Does not smoke. No alcohol. Physical examination: VITAL SIGNS: 96.7, 71, 22, 1 one 1 x 75, 92% on 4 L GENERAL: In bed, comfortable EYES: Pupils equal. Conjunctiva teja l. HEENT: External appearance of nose and ears normal, oral cavity-dry mucous membrane. Dried blood in the right nostril NECK: JVD unable to assess; masses not palpable. HEART: First and second heart sounds are normal; edema present. LUNGS: Respiratory rate increased; some basal crackles n. ABDOMEN: Soft, nontender, liver spleen not palpable, no masses palpable. PSYCH: Answering simple questions. MUSCULOSKELETAL:No Clubbing/cyanosis;muscles-grossly intact. OA NEUROLOGICAL: Cranial nerves grossly intact; no facial asymmetry, . Blind in the left eye. Jerking movements resolved for now INVESTIGATIONS, reviewed in the clinical context: January 07: Potassium 4.1 BUN 45 creatinine 1.57 January 06: White count 10.7 hemoglobin 9.1 potassium 4.9 BUN 47.4 creatinine 1.5 TSH 1.5 January 06, 2024: White count 10.1 hemoglobin 9.7 platelets 273 sodium 142 potassium 4.3 BUN 59 creatinine 1.78 UA: Negative EKG tracing personally reviewed by me-atrial fibrillation. Rate [address]-T wave changes. Previous investigation 2D echocardiogram [December 2023]: EF 50-55%. Severe pulmonary hypertension. Creatinine 1.05 on December 24, 1.December 23 Assessment and plan: -Acute delirium with metabolic encephalopathy from acute kidney injury and electrolyte abnormalities: Improved -Acute epistaxis from local trauma from nasal prong and patient being on Xarelto s: Improved Afrin nasal spray. Hold Xarelto - chronic congestive heart failure from diastolic EF 50 to 55%: On Bumex -Jerking movements of the limbs, restlessness, could be from underlying CIARA electrolyte abnormalities. 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 Lopressor 100 mg twice daily. Xarelto -Chronic urinary bladder outflow obstruction Maldonado catheter -Hyperlipidemia Lipitor -Chronic kidney disease stage III likely nephrosclerosis Baseline creatinine 1.0 -Essential hypertension Lopressor. Cardizem. -DNR Continue to hold Xarelto. Other medications to continue Past Medical History Past Medical History: Heart Failure, Hypertension, Respiratory Disorder, Thyroid Disorder Additional Past Medical History / Comment(s): CHF, brain tumor, parathyroid History of Any Multi-Drug Resistant Organisms: None Reported Additional Past Surgical History / Comment(s): Parathiroid removed, brain tumor removed, Past Psychological History: No Psychological Hx Reported Smoking Status: Never smoker Past Alcohol Use History: None Reported Past Drug Use History: None Reported
[2024-01-11 08:02] VITALS: BP 117/77; PULSE 67; RESP 16; TEMP 97.5
--- NOTE | 2024-01-11 08:03 | XR ---
EXAMINATION TYPE: XR chest 1V portable DATE OF EXAM: 01/11/2024 HISTORY: Shortness of breath. COMPARISON: 01/06/24 TECHNIQUE: Single view of the chest is submitted. FINDINGS: Demonstrated are scattered senescent parenchymal change. There is no evidence for focal infiltrate. There is evidence of cardiomegaly pulmonary venous congestion. No evidence for a overt failure. Hilar and mediastinal structures are within normal limits. Degenerative changes are seen of the dorsal spine. IMPRESSION: 1. There is evidence of cardiomegaly pulmonary venous congestion. No evidence for a overt failure.
--- NOTE | 2024-01-11 14:13 | P.DS ---
Providers Date of admission: 01/06/24 15:27 Expected date of discharge: 01/11/24 Attending physician: Lawrence Tamyao Consults: 01/06/24 12:13 Consult Physician Routine Consulting Provider: Paras White Consult Reason/Comments: Hypoxia, lung crackles Do you want consulting provider notified?: Yes 01/06/24 15:19 Consult Physician Routine Consulting Provider: Heri Lara Consult Reason/Comments: Tremors shaking Do you want consulting provider notified?: Yes 01/06/24 15:22 Consult Physician Routine Consulting Provider: Aretha Yo Consult Reason/Comments: Atrial fibrillation Do you want consulting provider notified?: Yes Primary care physician: Shane Harjit [facility] Course: Chief Complaint: Altered mentation This is a 88-year-old patient, follows with Dr. Sera Johnson. 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 Was treated for CHF exacerbation EF 50 to 55%, bout of epistaxis, has atrial fibrillation, secondary pulm hypertension. She was discharged to [facility] for rehab Readmitted from December 13 through December 23.: Sepsis, UTI, CHF exacerbation,- discharge back to rehab He now presents to the ER again. Caregiver at the bedside who knows the patient from before. 5 days ago patient was at L level. That is on Thursday. On Thursday she presented to the ER with a nosebleed and was sent back to rehab. Yesterday patient had gone to follow-up appointments but was more confused. EMS was called as patient becoming more confused. Having generalized tremors. Patient is rather restless. She did tell the EMS that she was having tremors for over a month every night. In the ER patient was more delirious. She is a DNR. January 06: Patient mated with acute delirium/metabolic encephalopathy from acute kidney injury. Given IV fluids. This morning doing better. Mouth still a bit dry. Spoke to the nurse about oral toilet. Will give some more IV fluids today. Patient is answering questions much better. January 07: Eating better. Communicating better. Will hold tomorrow morning's Bumex. Continue with gentle hydration 75 cc an hour today. January 08: Patient started with epistaxis. She also had this in the last admission. Afrin nasal spray was used. Xarelto held for today. Patient's previous caregiver at the bedside. Otherwise patient able to communicate. Patient is put on a BiPAP by pulmonary. January 09: Patient little bit more of epistaxis last night. Otherwise tolerated diet. Tired. Looking better otherwise. January 10: Tired. Nasal cannula. Patient is at 2 to 3-week episodes of epistaxis this admission including the last admission. Given her age and comorbidities. This could be an issue. Will hold off Xarelto at least for a week.Can be reevaluated outpatient. Will encourage oral intake. Overall prognosis guarded. Spoke to patient's daughter Karlene over the phone. Updated. She understands prognosis guarded. Discussion and discharge planning more than 35 minutes Social history: currently at [facility]. Home oxygen 2 L. Does not smoke. No alcohol. Physical examination: VITAL SIGNS: 97.5, 67, 16, 1 one 7 x 77, 91% on 2 L GENERAL: Up in a chair, tired EYES: Pupils equal. Conjunctiva teja l. HEENT: External appearance of nose and ears normal, oral cavity-dry mucous membrane. Dried blood in the right nostril NECK: JVD unable to assess; masses not palpable. HEART: First and second heart sounds are normal; edema present. LUNGS: Respiratory rate increased; some decreased breath sounds ABDOMEN: Soft, nontender, liver spleen not palpable, no masses palpable. PSYCH: Answering simple questions. MUSCULOSKELETAL:No Clubbing/cyanosis;muscles-grossly intact. OA NEUROLOGICAL: Cranial nerves grossly intact; no facial asymmetry, . Blind in the left eye. Jerking movements resolved for now INVESTIGATIONS, reviewed in the clinical context: January 07: Potassium 4.1 BUN 45 creatinine 1.57 January 06: White count 10.7 hemoglobin 9.1 potassium 4.9 BUN 47.4 creatinine 1.5 TSH 1.5 January 06, 2024: White count 10.1 hemoglobin 9.7 platelets 273 sodium 142 potassium 4.3 BUN 59 creatinine 1.78 UA: Negative EKG tracing personally reviewed by me-atrial fibrillation. Rate [address]-T wave changes. Previous investigation 2D echocardiogram [December 2023]: EF 50-55%. Severe pulmonary hypertension. Creatinine 1.05 on December 24, 1.December 23 Assessment and plan: -Acute delirium with metabolic encephalopathy from acute kidney injury and electrolyte abnormalities: Improved -Acute epistaxis from local trauma from nasal prong and patient being on Xarelto s: Improved Afrin nasal spray. Hold Xarelto-reevaluate outpatient - chronic congestive heart failure from diastolic EF 50 to 55%: On Bumex -Jerking movements of the limbs, restlessness, could be from underlying CIARA electrolyte abnormalities. 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 Lopressor 100 mg twice daily. Xarelto -Chronic urinary bladder outflow obstruction Maldonado catheter -Hyperlipidemia Lipitor -Chronic kidney disease stage III likely nephrosclerosis Baseline creatinine 1.0 -Essential hypertension Lopressor. Cardizem. -DNR Disposition: [facility] Past Medical History Past Medical History: Heart Failure, Hypertension, Respiratory Disorder, Thyroid Disorder Additional Past Medical History / Comment(s): CHF, brain tumor, parathyroid History of Any Multi-Drug Resistant Organisms: None Reported Additional Past Surgical History / Comment(s): Parathiroid removed, brain tumor removed, Past Psychological History: No Psychological Hx Reported Smoking Status: Never smoker Past Alcohol Use History: None Reported Past Drug Use History: None Reported Plan - Discharge Summary Discharge Rx Participant: No New Discharge Prescriptions: New Oxymetazoline 0.05% Nasl [place] [Afrin 0.05% Nasal [place]] 3 spray NASAL TID PRN ml Continue Atorvastatin [Lipitor] 20 mg PO HS Potassium Chloride ER [K-Dur 10] 10 meq PO DAILY Cranberry 450mg 450 mg PO HS Ammonium Lactate Lotion [Lac-Hydrin 12% Lotion] 1 applic TOPICAL HS Budesonide [Pulmicort] 0.5 mg INHALATION RT-BID ml ALPRAZolam [Xanax] 0.25 mg PO BID PRN #6 tab PRN Reason: Anxiety Metoprolol Tartrate [Lopressor] 100 mg PO BID Citalopram Hydrobromide [CeleXA] 10 mg PO DAILY dilTIAZem HCL 60 mg PO Q8H Melatonin 1 mg PO HS Acetaminophen Tab [Tylenol] 1,000 mg PO BID Estradiol Cream [Estrace Cream 0.01%] 1 gm VAGINAL SUTH@2100 Tamsulosin [Flomax] 0.4 mg PO DAILY #0 cap Diclofenac Sodium Gel [Voltaren 1% Gel] 1 applic TOPICAL QID Bumetanide [BUMEX] 2 mg PO DAILY Discontinued Rivaroxaban [Xarelto] 15 mg PO HS Discharge Medication List Acetaminophen Tab [Tylenol] 1,000 mg PO BID 12/01/23 [History] Atorvastatin [Lipitor] 20 mg PO HS 12/01/23 [History] Citalopram Hydrobromide [CeleXA] 10 mg PO DAILY 12/01/23 [History] Melatonin 1 mg PO HS 12/01/23 [History] Metoprolol Tartrate [Lopressor] 100 mg PO BID 12/01/23 [History] Potassium Chloride ER [K-Dur 10] 10 meq PO DAILY 12/01/23 [History] dilTIAZem HCL 60 mg PO Q8H 12/01/23 [History] Ammonium Lactate Lotion [Lac-Hydrin 12% Lotion] 1 applic TOPICAL HS 12/14/23 [History] Cranberry 450mg 450 mg PO HS 12/14/23 [History] Estradiol Cream [Estrace Cream 0.01%] 1 gm VAGINAL SUTH@2100 12/14/23 [History] Budesonide [Pulmicort] 0.5 mg INHALATION RT-BID ml 12/24/23 [Rx] Tamsulosin [Flomax] 0.4 mg PO DAILY #0 cap 12/24/23 [Rx] Bumetanide [BUMEX] 2 mg PO DAILY 01/06/24 [History] Diclofenac Sodium Gel [Voltaren 1% Gel] 1 applic TOPICAL QID 01/06/24 [History] ALPRAZolam [Xanax] 0.25 mg PO BID PRN #6 tab 01/11/24 [Rx] Oxymetazoline 0.05% Nasl [place] [Afrin 0.05% Nasal [place]] 3 spray NASAL TID PRN ml 01/11/24 [Rx] Follow up Appointment(s)/Referral(s): Shane Lombardi MD [Primary Care Provider] - 1-2 days Discharge Disposition: TRANSFER TO [facility]
== END 2024-01-11 13:59 | DRG 682 ==
LOC: EC 03:48 → 6NMEDSUR 08:07 → OBSVTOIN 15:27
PROVIDERS: ADMIT Hospitalist; ATTEND Hospitalist
DX: N17.0 Acute kidney failure with tubular necrosis (principal); G93.41 Metabolic encephalopathy; J96.21 Acute and chronic respiratory failure with hypoxia; I13.0 Hypertensive heart and chronic kidney disease with heart failure and stage 1 through stage 4 chronic kidney disease, or unspecified chronic kidney disease; I50.32 Chronic diastolic (congestive) heart failure; I48.19 Other persistent atrial fibrillation; F05 Delirium due to known physiological condition; N13.8 Other obstructive and reflux uropathy; R53.1 Weakness; Z79.01 Long term (current) use of anticoagulants; N18.30 Chronic kidney disease, stage 3 unspecified; R04.0 Epistaxis; Z68.34 Body mass index [BMI] 34.0-34.9, adult; N32.0 Bladder-neck obstruction; Z99.81 Dependence on supplemental oxygen; H54.62 Unqualified visual loss, left eye, normal vision right eye; E78.5 Hyperlipidemia, unspecified; R33.8 Other retention of urine; R25.8 Other abnormal involuntary movements; I35.1 Nonrheumatic aortic (valve) insufficiency; E66.9 Obesity, unspecified; E03.9 Hypothyroidism, unspecified; F41.9 Anxiety disorder, unspecified; I27.29 Other secondary pulmonary hypertension; Z79.890 Hormone replacement therapy; Z66 Do not resuscitate
CPT/HCPCS: 36415; 36600; 51702; 51798; 70450; 71045; 80048; 80053; 81003; 82140; 82607; 82746; 82805; 83735; 83880; 83921; 84443; 85025; 94640; 94760; 96361; 96374; 96376; 99285

== ENCOUNTER 2024-01-28 08:19 | Emergency (ER) | payer MEDICARE, BC ==
--- NOTE | 2024-01-28 08:37 | ED ---
General Adult HPI - General Stated complaint: AMS Time Seen by Provider: 01/28/24 08:21 Source: patient Mode of arrival: EMS Limitations: altered mental status - History of Present Illness Initial comments: Dictation was produced using [employer] dictation software. please excuse any gr ammatical, word or spelling errors. Chief Complaint: 88-year-old female on home O2 presents to the ER for hypoxia History of Present Illness: Patient 88-year-old female she is home O2 dependent. She wears her nasal cannula at 3 L. Patient was noted by [facility] staff without her oxygen. She was found to be hypoxic in the 70s and cyanotic. Nonrebreather was placed on the patient she was brought to the emergency department. Per EMS patient's oxygenation improved on nonrebreather and her color improved. Patient is a poor historian however she does report that she feels at baseline. According to nurse, documentation patient is DNR. Patient has multiple comorbidities. The ROS documented in this emergency department record has been reviewed and confirmed by me. Those systems with pertinent positive or negative responses have been documented in the HPI. All other systems are other negative and/or noncontributory. - Related Data Home Medications Medication Instructions Recorded Confirmed Acetaminophen Tab [Tylenol] 1,000 mg PO BID 12/01/23 01/28/24 Atorvastatin [Lipitor] 20 mg PO HS 12/01/23 01/28/24 Citalopram Hydrobromide [CeleXA] 10 mg PO DAILY 12/01/23 01/28/24 Melatonin 1 mg PO HS 12/01/23 01/28/24 Metoprolol Tartrate [Lopressor] 100 mg PO BID 12/01/23 01/28/24 Potassium Chloride ER [K-Dur 10] 10 meq PO DAILY 12/01/23 01/28/24 dilTIAZem HCL 60 mg PO TID@0900,1400,2100 12/01/23 01/28/24 Ammonium Lactate Lotion 1 applic TOPICAL HS 12/14/23 01/28/24 [Lac-Hydrin 12% Lotion] Cranberry 450mg 450 mg PO HS 12/14/23 01/28/24 Estradiol Cream [Estrace Cream 1 gm VAGINAL SUTH@0900 12/14/23 01/28/24 0.01%] Bumetanide [BUMEX] 2 mg PO DAILY 01/06/24 01/28/24 Diclofenac Sodium Gel [Voltaren 1% 1 applic TOPICAL QID 01/06/24 01/28/24 Gel] Lactose-Reduced Food [Ensure Plus] 1 can PO DAILY 01/28/24 01/28/24 Oxymetazoline 0.05% Nasl [place] 3 spray NASAL TID PRN 01/28/24 01/28/24 [Afrin 0.05% Nasal [place]] Previous Rx's Medication Instructions Recorded Budesonide [Pulmicort] 0.5 mg INHALATION RT-BID ml 12/24/23 Tamsulosin [Flomax] 0.4 mg PO DAILY #0 cap 12/24/23 ALPRAZolam [Xanax] 0.25 mg PO BID PRN #6 tab 01/11/24 Allergies Allergy/AdvReac Type Severity Reaction Status Date / Time No Known Allergies Allergy Verified 01/28/24 09:20 Review of Systems ROS Statement: Those systems with pertinent positive or pertinent negative responses have been documented in the HPI. ROS Other: All systems not noted in ROS Statement are negative. Past Medical History Past Medical History: Heart Failure, COPD, Hypertension, Renal Disease, Respiratory Disorder, Thyroid Disorder Additional Past Medical History / Comment(s): CHF, brain tumor, parathyroid ,encephalopathy,chronic uti, blind right eye History of Any Multi-Drug Resistant Organisms: None Reported Additional Past Surgical History / Comment(s): Parathiroid removed, brain tumor removed, Past Psychological History: No Psychological Hx Reported Smoking Status: Never smoker Past Alcohol Use History: None Reported Past Drug Use History: None Reported General Exam - General Exam Comments Initial Comments: PHYSICAL EXAM: General Impression: Alert and oriented, not in acute distress HEENT: Normocephalic atraumatic, extra-ocular movements intact, pupils equal and reactive to light bilaterally, mucous membranes moist. Cardiovascular: Heart regular rate and rhythm Chest: Able to complete full sentences, no retractions, no tachypnea Abdomen: abdomen soft, non-tender, non-distended, no organomegaly Musculoskeletal: Pulses present and equal in all extremities, no peripheral edema Motor: no focal deficits noted Neurological: CN II-XII grossly intact, no focal motor or sensory deficits noted Skin: Intact with no visualized rashes Psych: Normal affect and mood Limitations: altered mental status Course Vital Signs 01/28/24 01/28/24 01/28/24 08:26 08:32 08:38 Temperature 97.7 F 97.7 F Pulse Rate 95 90 Respiratory 16 20 20 Rate Blood Pressure 105/90 110/60 O2 Sat by Pulse 96 95 Oximetry 01/28/24 01/28/24 09:32 10:32 Temperature Pulse Rate 88 73 Respiratory 20 18 Rate Blood Pressure 106/60 101/63 O2 Sat by Pulse 94 L 95 Oximetry - Reevaluation(s) Reevaluation #1: 01/28/24 11:13 Long discussion was held with Hayley Hernandez who is listed as patient's next of kin. According to EMR this is patient's daughter. Daughter was told of why patient was brought to the emergency department. Labs imaging and clinical condition was discussed with daughter. She did feel that patient was with prefer to be discharged back to snf. EKG Findings - EKG Comments: EKG Findings:: My EKG interpretation: Ventricular rate 104, A-fib, significant artifact limiting interpretation. Narrow complex with a QRS of 100 QTc 431.. No QTC prolongation. Overall this EKG is nonspecific. Cardiology note was reviewed from January 06 of this year showing that patient has history of chronic persistent A-fib Medical Decision Making - Medical Decision Making Was pt. sent in by a medical professional or institution (, PA, BEEF LUGGER, urgent care, hospital, or snf...) When possible be specific @ -Sent from snf Did you speak to anyone other than the patient for history (EMS, parent, family, police, friend...)? What history was obtained from this source @ -EMS as described above Did you review nursing and triage notes (agree or disagree)? Why? @ -I reviewed and agree with nursing and triage notes Were old charts reviewed (outside hosp., previous admission, EMS record, old EKG, old radiological studies, urgent care reports/EKG's, snf records)? Report findings @ -senior care documents reviewed showing that patient is DNR and has multiple comorbidities Differential Diagnosis (chest pain, altered mental status, abdominal pain women, abdominal pain men, vaginal bleeding, musculoskeletal, weakness, fever, dyspnea, syncope, headache, dizziness, GI bleed, back pain, seizure, CVA, palpatations, mental health)? @ -Differential Dyspnea: Coronary syndrome, arrhythmia, tamponade, asthma, COPD, pulmonary embolism, pneumonia, pneumothorax, pulmonary effusion, anaphylaxis, diabetic ketoacidosis, flailed chest, pulmonary contusion, diaphragmatic rupture, anemia, neuromuscular, this is not meant to be an all-inclusive list. EKG interpreted by me (3pts min.). @ -See above X-rays interpreted by me (1pt min.). @ -C chest x-ray shows congestive heart failure CT interpreted by me (1pt min.). @ -None done U/S interpreted by me (1pt. min.). @ -None done What testing was considered but not performed or refused? (CT, X-rays, U/S, labs)? Why? @ -None What meds were considered but not given or refused? Why? @ -None Did you discuss the management of the patient with other professionals (professionals i.e. , PA, BEEF LUGGER, lab, RT, psych nurse, social worker aide, medication administration professional, teacher, life science technical officer, assistant case manager)? Give summary @ -No Was smoking cessation discussed for >3mins.? @ -No Was critical care preformed (if so, how long)? @ -No Were there social determinants of health that impacted care today? How? (Homelessness, low income, unemployed, alcoholism, drug addiction, transportation, low edu. Level, literacy, decrease access to med. care, fpc, rehab)? @ -No Was there de-escalation of care discussed even if they declined (Discuss DNR or withdrawal of care, Hospice)? DNR status @ -No What co-morbidities impacted this encounter? (DM, HTN, Smoking, COPD, CAD, Cancer, CVA, ARF, Chemo, Hep., AIDS, mental health diagnosis, sleep apnea, mo rbid obesity)? @ -None Was patient admitted / discharged? Hospital course, mention meds given and r oute, prescriptions, significant lab abnormalities, going to OR and other pertinent info. @ -88-year-old female brought to the emergency department after being found at snf without her nasal cannula on. She is initially hypoxic. According to EMS they placed nonrebreather and patient improved. Patient has no complaints at the bedside. Vital signs are stable with patient's normal home O2 of 3 L nasal cannula. According to snf documentation she is DNR. Laboratory evaluation obtained. CBC within acceptable limits. Metabolic panel shows mild acidosis with a lactic acid level 4.5. Patient observed emergency department for several hours. Repeat lactic acid level was 2.1. Lengthy discussion was held with patient's next of kin who would prefer patient be dis charged back to snf. Undiagnosed new problem with uncertain prognosis? @ -No Drug Therapy requiring intensive monitoring for toxicity (Heparin, Nitro, Insulin, Cardizem)? @ -No Were any procedures done? @ -No Diagnosis/symptom? Acute, or Chronic, or Acute on Chronic? Uncomplicated (without systemic symptoms) or Complicated (systemic symptoms)? @ -Hypoxia Side effects of treatment? @ -No Exacerbation, Progression, or Severe Exacerbation? @ -No Poses a threat to life or bodily function? How? (Chest pain, USA, SC, pneumonia, PE, COPD, DKA, ARF, appy, cholecystitis, CVA, Diverticulitis, Homicidal, Suicidal, threat to staff... and all critical care pts) @ -yes - Lab Data Result diagrams: 01/28/24 08:31 01/28/24 08:31 Lab Results 01/28/24 01/28/24 01/28/24 Range/Units 08:31 08:31 08:31 WBC 9.6 (3.8-10.6) k/uL RBC 3.48 L (3.80-5.40) m/uL Hgb 9.6 L (11.4-16.0) gm/dL Hct 32.6 L (34.0-46.0) % MCV 93.7 (80.0-100.0) fL MCH 27.5 (25.0-35.0) pg MCHC 29.3 L (31.0-37.0) g/dL RDW 16.8 H (11.5-15.5) % Plt Count 263 (150-450) k/uL MPV 9.7 Neutrophils % 79 % Lymphocytes % 10 % Monocytes % 6 % Eosinophils % 2 % Basophils % 1 % Neutrophils # 7.6 (1.3-7.7) k/uL Lymphocytes # 1.0 (1.0-4.8) k/uL Monocytes # 0.6 (0-1.0) k/uL Eosinophils # 0.2 (0-0.7) k/uL Basophils # 0.1 (0-0.2) k/uL Hypochromasia Marked Poikilocytosis Slight Anisocytosis Slight Sodium 143 (137-145) mmol/L Potassium 5.3 H (3.5-5.1) mmol/L Chloride 108 H (98-107) mmol/L Carbon Dioxide 18 L (22-30) mmol/L Anion Gap 17 mmol/L BUN 41 H (7-17) mg/dL Creatinine 1.41 H (0.52-1.04) mg/dL Est GFR (CKD-EPI)AfAm 39 (>60 ml/min/1.73 sqM) Est GFR (CKD-EPI)NonAf 34 (>60 ml/min/1.73 sqM) Glucose 123 H (74-99) mg/dL Plasma Lactic Acid Tramaine 4.5 H* (0.7-2.0) mmol/L Calcium 8.9 (8.4-10.2) mg/dL 01/28/24 Range/Units 09:36 WBC (3.8-10.6) k/uL RBC (3.80-5.40) m/uL Hgb (11.4-16.0) gm/dL Hct (34.0-46.0) % MCV (80.0-100.0) fL MCH (25.0-35.0) pg MCHC (31.0-37.0) g/dL RDW (11.5-15.5) % Plt Count (150-450) k/uL MPV Neutrophils % % Lymphocytes % % Monocytes % % Eosinophils % % Basophils % % Neutrophils # (1.3-7.7) k/uL Lymphocytes # (1.0-4.8) k/uL Monocytes # (0-1.0) k/uL Eosinophils # (0-0.7) k/uL Basophils # (0-0.2) k/uL Hypochromasia Poikilocytosis Anisocytosis Sodium (137-145) mmol/L Potassium (3.5-5.1) mmol/L Chloride (98-107) mmol/L Carbon Dioxide (22-30) mmol/L Anion Gap mmol/L BUN (7-17) mg/dL Creatinine (0.52-1.04) mg/dL Est GFR (CKD-EPI)AfAm (>60 ml/min/1.73 sqM) Est GFR (CKD-EPI)NonAf (>60 ml/min/1.73 sqM) Glucose (74-99) mg/dL Plasma Lactic Acid Tramaine 2.1 H* (0.7-2.0) mmol/L Calcium (8.4-10.2) mg/dL Disposition Clinical Impression: Hypoxia Disposition: HOME SELF-CARE Condition: Fair Instructions (If sedation given, give patient instructions): Hypoxia (ED) Is patient prescribed a controlled substance at d/c from ED?: No Referrals: Shane Lombardi MD [Primary Care Provider] - 1-2 days Time of Disposition: 11:16
[2024-01-28 08:42] VITALS: TEMP 97.7
[2024-01-28 08:53] LABS: Anisocytosis Slight; Basophils # (A) 0.1 k/uL (0-0.2); Basophils % (A) 1 %; Eosinophils # (A) 0.2 k/uL (0-0.7); Eosinophils % (A) 2 %; HCT 32.6 % (34.0-46.0); HGB 9.6 gm/dL (11.4-16.0); Hypochromasia Marked; Lymphocytes % (A) 10 %; MCH 27.5 pg (25.0-35.0); MCHC 29.3 g/dL (31.0-37.0); MCV 93.7 fL (80.0-100.0); Mean Platelet Volume 9.7; Monocytes # (A) 0.6 k/uL (0-1.0); Monocytes % (A) 6 %; Neutrophils # (A) 7.6 k/uL (1.3-7.7); Neutrophils % (A) 79 %; Platelet Count 263 k/uL (150-450); Poikilocytosis Slight; RBC 3.48 m/uL (3.80-5.40); RDW 16.8 % (11.5-15.5); WBC 9.6 k/uL (3.8-10.6)
[2024-01-28 09:03] LABS: African American GFR (CKD) 39 (>60 ml/min/1.73 sqM); Anion Gap 17 mmol/L; Blood Urea Nitrogen 41 mg/dL (7-17); Calcium 8.9 mg/dL (8.4-10.2); Carbon Dioxide 18 mmol/L (22-30); Chloride 108 mmol/L (98-107); Glucose 123 mg/dL (74-99); Non-African American GFR(CKD) 34 (>60 ml/min/1.73 sqM); Sodium 143 mmol/L (137-145)
[2024-01-28 09:21] LABS: Potassium 5.3 mmol/L (3.5-5.1)
--- NOTE | 2024-01-28 09:21 | XR ---
EXAMINATION TYPE: XR chest 2V DATE OF EXAM: 01/28/2024 COMPARISON: 01/11/2024 HISTORY: Shortness of breath FINDINGS: Noted is pulmonary venous congestion with scattered infiltrates. There is also cardiomegaly and small effusions. IMPRESSION: Findings compatible with congestive failure. Infiltrates of other etiology are not excluded. Clinical correlation and progress studies are recommended.
[2024-01-28 11:00] VITALS: BP 101/63; PULSE 73; RESP 18
== END 2024-01-28 12:23 | disposition home or self-care (01) ==
LOC: EC 08:19
DX: R09.02 Hypoxemia (principal); I45.10 Unspecified right bundle-branch block; I48.91 Unspecified atrial fibrillation
CPT/HCPCS: 36415; 71046; 80048; 83605; 85025; 93005; 99285

== ENCOUNTER 2024-01-29 11:10 | Emergency (ER) | payer MEDICARE, BC ==
--- NOTE | 2024-01-29 11:26 | ED ---
SOB HPI - General Chief Complaint: Shortness of Breath Stated Complaint: YULIA Time Seen by Provider: 01/29/24 11:10 Source: EMS Mode of arrival: EMS Limitations: altered mental status, physical limitation - History of Present Illness Initial Comments: 88 year old female presents to the ED with respiratory distress. Patient has a history of CHF. She was seen in the yesterday for shortness of breath. The patient's oxygen had fallen off while at her room 30. It was reapplied and the patient had returned to her normal baseline. She was sent back to [facility]. Today EMS brought the patient in for respiratory distress. They are not provided with information in regards to how long the patient had been struggling to breathe. The patient was not complaining of anything. They applied a nonrebreather and brought the patient into the hospital. For me she is obtunded and nonresponsive to sternal rub. Her oxygen saturation is 74%. Patient's heart rate is 18. Patient does have accompanying DNR paperwork - Related Data Home Medications Medication Instructions Recorded Confirmed Acetaminophen Tab [Tylenol] 1,000 mg PO BID 12/01/23 01/28/24 Atorvastatin [Lipitor] 20 mg PO HS 12/01/23 01/28/24 Citalopram Hydrobromide [CeleXA] 10 mg PO DAILY 12/01/23 01/28/24 Melatonin 1 mg PO HS 12/01/23 01/28/24 Metoprolol Tartrate [Lopressor] 100 mg PO BID 12/01/23 01/28/24 Potassium Chloride ER [K-Dur 10] 10 meq PO DAILY 12/01/23 01/28/24 dilTIAZem HCL 60 mg PO TID@0900,1400,2100 12/01/23 01/28/24 Ammonium Lactate Lotion 1 applic TOPICAL HS 12/14/23 01/28/24 [Lac-Hydrin 12% Lotion] Cranberry 450mg 450 mg PO HS 12/14/23 01/28/24 Estradiol Cream [Estrace Cream 1 gm VAGINAL SUTH@0900 12/14/23 01/28/24 0.01%] Bumetanide [BUMEX] 2 mg PO DAILY 01/06/24 01/28/24 Diclofenac Sodium Gel [Voltaren 1% 1 applic TOPICAL QID 01/06/24 01/28/24 Gel] Lactose-Reduced Food [Ensure Plus] 1 can PO DAILY 01/28/24 01/28/24 Oxymetazoline 0.05% Nasl [place] 3 spray NASAL TID PRN 01/28/24 01/28/24 [Afrin 0.05% Nasal [place]] Previous Rx's Medication Instructions Recorded Budesonide [Pulmicort] 0.5 mg INHALATION RT-BID ml 12/24/23 Tamsulosin [Flomax] 0.4 mg PO DAILY #0 cap 12/24/23 ALPRAZolam [Xanax] 0.25 mg PO BID PRN #6 tab 01/11/24 Allergies Allergy/AdvReac Type Severity Reaction Status Date / Time No Known Allergies Allergy Verified 01/28/24 09:20 Review of Systems ROS Statement: Those systems with pertinent positive or pertinent negative responses have been documented in the HPI. ROS Other: All systems not noted in ROS Statement are negative. Past Medical History Past Medical History: Heart Failure, COPD, Hypertension, Renal Disease, Respiratory Disorder, Thyroid Disorder Additional Past Medical History / Comment(s): CHF, brain tumor, parathyroid ,encephalopathy,chronic uti, blind right eye History of Any Multi-Drug Resistant Organisms: None Reported Additional Past Surgical History / Comment(s): Parathiroid removed, brain tumor removed, Past Psychological History: No Psychological Hx Reported Smoking Status: Never smoker Past Alcohol Use History: None Reported Past Drug Use History: None Reported General Exam Limitations: altered mental status, physical limitation General appearance: obtunded Head exam: Present: atraumatic, normocephalic, normal inspection Eye exam: Present: normal appearance, PERRL, EOMI. Absent: scleral icterus, conjunctival injection, periorbital swelling ENT exam: Present: normal exam, mucous membranes moist Respiratory exam: Present: other (Decreased respiratory rate) Cardiovascular Exam: Present: bradycardia GI/Abdominal exam: Present: soft, normal bowel sounds. Absent: distended, tenderness, guarding, rebound, rigid Neurological exam: Present: altered Course Vital Signs 01/29/24 01/29/24 11:10 11:18 Pulse Rate 28 L 0 L Respiratory 4 L 0 L Rate O2 Sat by Pulse 0 L Oximetry Medical Decision Making - Medical Decision Making Was pt. sent in by a medical professional or institution (, PA, COPIER TECHNICIAN, urgent care, hospital, or usp...) When possible be specific @ -Patient was sent in from [facility] on the [place] Did you speak to anyone other than the patient for history (EMS, parent, family, police, friend...)? What history was obtained from this source @ -Spoke with EMS for history Did you review nursing and triage notes (agree or disagree)? Why? @ -I reviewed and agree with nursing and triage notes Were old charts reviewed (outside hosp., previous admission, EMS record, old EKG, old radiological studies, urgent care reports/EKG's, usp records)? Report findings @ -I reviewed patient's ED visit from yesterday Differential Diagnosis (chest pain, altered mental status, abdominal pain women, abdominal pain men, vaginal bleeding, weakness, fever, dyspnea, syncope, headache, dizziness, GI bleed, back pain, seizure, CVA, palpatations, mental health, musculoskeletal)? @ -Differential Dyspnea: Coronary syndrome, arrhythmia, tamponade, asthma, COPD, pulmonary embolism, pneumonia, pneumothorax, pulmonary effusion, anaphylaxis, diabetic ketoacidosis, flailed chest, pulmonary contusion, diaphragmatic rupture, anemia, neuromuscular, this is not meant to be an all-inclusive list. EKG interpreted by me (3pts min.). @ -Yes and demonstrates junctional escape with a rate of 18. QRS 121. QTc of 235. X-rays interpreted by me (1pt min.). @ -None done CT interpreted by me (1pt min.). @ -None done U/S interpreted by me (1pt. min.). @ -None done What testing was considered but not performed or refused? (CT, X-rays, U/S, labs)? Why? @ -X-ray and laboratory studies however patient is DNR What meds were considered but not given or refused? Why? @ -None Did you discuss the management of the patient with other professionals (professionals i.e. DrJuan Manuel, PA, COPIER TECHNICIAN, lab, RT, psych nurse, social welfare administrator, airline flight attendant, teacher, security police officer, outsole caser)? Give summary @ -No Was smoking cessation discussed for >3mins.? @ -No Was critical care preformed (if so, how long)? @ -No Were there social determinants of health that impacted care today? How? (Homelessness, low income, unemployed, alcoholism, drug addiction, transportation, low edu. Level, literacy, decrease access to med. care, nursing home, rehab)? @ -Patient resides in rehab Was there de-escalation of care discussed even if they declined (Discuss DNR or withdrawal of care, Hospice)? DNR status @ -Yes and daughter states that she is a DNR What co-morbidities impacted this encounter? (DM, HTN, Smoking, COPD, CAD, Cancer, CVA, ARF, Chemo, Hep., AIDS, mental health diagnosis, sleep apnea, morbid obesity)? @ -CHF, chronic respiratory insufficiency on home O2 Was patient admitted / discharged? Hospital course, mention meds given and route, prescriptions, significant lab abnormalities, going to OR and other pertinent info. @ -Upon arrival patient was seen and evaluated in trauma 3. Patient is obtunded. She is bradycardic and hypoxic. She does have accompanied DNR paperwork. I do call the daughter who states that the patient did not want life support or CPR. States that she has been sick for quite some time and she has been somewhat prepared for this information. The patient does rapidly. Time of is 11:18 AM. I did speak with Dr. Leroy who is the patient's primary care doctor. I also spoke with the medical laboratory technologist. [place] able [place] [id number]. Family does come to the hospital and is able to spend some time with the patient before she is transported to the home Undiagnosed new problem with uncertain prognosis? @ -No Drug Therapy requiring intensive monitoring for toxicity (Heparin, Nitro, Insulin, Cardizem)? @ -No Were any procedures done? @ -No Diagnosis/symptom? @ -Acute respiratory failure, suspected CHF exacerbation, cardiac arrest Acute, or Chronic, or Acute on Chronic? @ -Acute Uncomplicated (without systemic symptoms) or Complicated (systemic symptoms)? @Complicated Side effects of treatment? @ -No Exacerbation, Progression, or Severe Exacerbation? @ -No Poses a threat to life or bodily function? How? (Chest pain, [place], [place], pneumonia, PE, COPD, DKA, ARF, appy, cholecystitis, CVA, Diverticulitis, Homicidal, Suicidal, threat to staff... and all critical care pts) @ -Yes patient did succumb to her illness Disposition Clinical Impression: Congestive heart failure, Cardiac arrest, Respiratory arrest Disposition: Referrals: Shane Lombardi MD [Primary Care Provider] - 1-2 days Preliminary Cause of : Cardiac arrest
[2024-01-29 11:59] VITALS: PULSE 0; RESP 0
== END 2024-01-29 14:49 | disposition expired ==
LOC: EC 11:10
DX: I11.0 Hypertensive heart disease with heart failure (principal); I50.9 Heart failure, unspecified; I46.9 Cardiac arrest, cause unspecified
CPT/HCPCS: 99285